=== PATIENT | male | born 1935 | race Caucasian/White ===

== ENCOUNTER 2017-01-25 11:53 | Inpatient (IN) ==
--- OUTSIDE RECORDS SUMMARY | 2017-01-25 12:09 | External Medical Summary | Referral Summary ---
:1935 Author Organization [facility] Address [address] [place] [address] Care Team Providers Name Role Phone Jorge Bowser Primary Care Physician Encounter [facility] [phone] Date(s): 08/31/16 - 09/03/16 [facility] [address] [place] [address] [phone] Discharge Disposition: 03-Shelter Facility Attending Physician: Sonali Foss DO Admitting Physician: Piotr Celeste MD Vital Signs Most recent to oldest [Reference Range]: 1 Temperature Oral [35.8-37.3 degC] 36.8 degC (09/03/16 12:00 PM) Apical Heart Rate [60-100 bpm] 93 bpm (08/31/16 10:42 PM) Peripheral Pulse Rate [60-100 bpm] 63 bpm (09/03/16 12:00 PM) Heart Rate Monitored [60-100 bpm] 97 bpm (08/31/16 9:15 PM) Respiratory Rate [14-20 br/min] 18 br/min (09/03/16 12:00 PM) Blood Pressure [90-140/60-90 mmHg] 110/64mmHg (09/03/16 12:00 PM) Mean Arterial Pressure, Cuff 89 mmHg (08/31/16 9:15 PM) SpO2 94 % (09/03/16 12:00 PM) Remote Telemetry Ongoing (09/02/16 8:00 PM) Problem List Condition Effective Dates Status Health Status Informant Acute pain(Confirmed) Active At risk for infection(Confirmed)1 Active At risk of pressure sore(Confirmed) Active Obesity(Confirmed) Active patient 1Problem added automatically by system based on initiation of At Risk for Infection in Nutrition Plan of Care Allergies, Adverse Reactions, Alerts No Known Medication Allergies Medications ALPRAZolam 1 mg, Oral, TID, as needed for anxiety Start Date: 09/01/16 Status: Orderedaspirin 81 mg, Oral, Daily Start Date: 09/01/16 Status: Orderedazithromycin 250 mg oral tablet 250 mg 1 tabs, Oral, Daily, X 3 days, # 3 tabs, 0 Refill(s) Start Date: 09/03/16 Stop Date: 09/06/16 Status: Orderedcefdinir 300 mg oral capsule 300 mg 1 caps, Oral, q12hr, X 5 days, # 10 caps, 0 Refill(s) Start Date: 09/03/16 Stop Date: 09/08/16 Status: OrderedCeleXA 40 mg, Oral, Daily Start Date: 09/01/16 Status: OrderedDULoxetine 30 mg, Oral, Daily Start Date: 09/01/16 Status: Orderedeszopiclone 3 mg, Oral, Bedtime (once a day), as needed for insomnia Start Date: 09/01/16 Status: Orderedhydrochlorothiazide 12.5 mg, Oral, Daily Start Date: 09/01/16 Status: Orderedlisinopril 20 mg, Oral, Daily Start Date: 09/01/16 Status: Orderedmethylphenidate 10 mg, Oral, BID, 0 Refill(s) Start Date: 09/01/16 Status: OrderedNorco 10 mg-325 mg oral tablet 1 tabs, Oral, TID, as needed for pain, 0 Refill(s) Start Date: 09/01/16 Status: OrderedSynthroid 100 mcg (0.1 mg) oral tablet 100 mcg 1 tabs, Oral, Daily, # 30 tabs, 0 Refill(s) Start Date: 09/03/16 Stop Date: 10/03/16 Status: Ordered Results Hematology Most recent to oldest [Reference Range]: 1 WBC [4.8-10.8 10*3/uL] 6.9 10*3/uL (09/03/16 6:50 AM) RBC [4.60-6.20] 3.95 *LOW* (09/03/16 6:50 AM) Hgb [14.0-18.0 gm/dL] 12.6 gm/dL *LOW* (09/03/16 6:50 AM) Hct [42.0-52.0 %] 37.8 % *LOW* (09/03/16 6:50 AM) MCV [82.0-99.0 fL] 95.7 fL (09/03/16 6:50 AM) MCH [27.0-32.0 pg] 31.9 pg (09/03/16 6:50 AM) MCHC [32.0-36.0 gm/dL] 33.3 gm/dL (09/03/16 6:50 AM) RDW [11.5-14.5 %] 12.6 % (09/03/16 6:50 AM) Platelet [150-400 10*3/uL] 115 10*3/uL *LOW* (09/03/16 6:50 AM) MPV [9.4-12.3 fL] 10.6 fL (09/03/16 6:50 AM) Immature Granulocytes [0.0-1.0 %] 0.6 % (09/03/16 6:50 AM) Neutrophils [51-75 %] 64 % (09/03/16 6:50 AM) Lymphocytes [20-46 %] 16 % *LOW* (09/03/16 6:50 AM) Monocytes [4-11 %] 12 % *HI* (09/03/16 6:50 AM) Eosinophils [0-4 %] 8 % *HI* (09/03/16 6:50 AM) Basophils [0-2 %] 0 % (09/03/16 6:50 AM) Neutro Absolute [1.90-7.00] 4.39 (09/03/16 6:50 AM) Lymph Absolute [0.80-3.30] 1.12 (09/03/16 6:50 AM) [place] Absolute [0.30-1.00] 0.80 (09/03/16 6:50 AM) Eos Absolute [0.00-0.50] 0.54 *HI* (09/03/16 6:50 AM) Baso Absolute [0.00-0.20] 0.02 (09/03/16 6:50 AM) Nucleated RBC Automated [0 /100 WBC] 0.0 /100 WBC (09/03/16 6:50 AM) Coagulation Most recent to oldest [Reference Range]: 1 INR [0.9-1.2] 1.2 (08/31/16 7:11 PM) PTT [25.0-35.0 seconds] 26.6 seconds (08/31/16 7:11 PM) Chemistry Most recent to oldest [Reference Range]: 1 Sodium Lvl [136-144 mEq/L] 138 mEq/L (09/03/16 6:50 AM) Potassium Lvl [3.6-5.1 mEq/L] 4.2 mEq/L (09/03/16 6:50 AM) Chloride [99-109 mEq/L] 107 mEq/L (09/03/16 6:50 AM) CO2 [22-32 mEq/L] 24 mEq/L (09/03/16 6:50 AM) AGAP [3-20] 7 (09/03/16 6:50 AM) BUN [4-20 mg/dL] 11 mg/dL (09/03/16 6:50 AM) Glucose Lvl [70-100 mg/dL] 90 mg/dL (09/03/16 6:50 AM) Creatinine Lvl [0.64-1.27 mg/dL] 0.88 mg/dL (09/03/16 6:50 AM) eGFR [>60] >601 (09/03/16 6:50 AM) Calcium Lvl [8.6-10.0 mg/dL] 7.3 mg/dL *LOW* (09/03/16 6:50 AM) Albumin Lvl [3.5-4.8 gm/dL] 2.7 gm/dL *LOW* (09/03/16 6:50 AM) Total Protein [6.1-7.9 gm/dL] 6.0 gm/dL *LOW* (08/31/16 7:11 PM) Globulin [1.9-4.3 gm/dL] 2.5 gm/dL (08/31/16 7:11 PM) ALT [17-63 U/L] 25 U/L (08/31/16 7:11 PM) AST [15-41 U/L] 38 U/L (08/31/16 7:11 PM) Alk Phos [26-104 U/L] 53 U/L (08/31/16 7:11 PM) Bili Total [0.2-1.2 mg/dL] 1.6 mg/dL2 *HI* (08/31/16 7:11 PM) Magnesium Lvl [1.8-2.5 mg/dL] 2.0 mg/dL (09/03/16 6:50 AM) Phosphorus [2.4-4.7 mg/dL] 2.8 mg/dL3 (09/03/16 6:50 AM) Total CK [49-397 U/L] 704 U/L *HI* (09/03/16 6:50 AM) Troponin [<0.06 ng/mL] 0.05 ng/mL (09/01/16 5:58 AM) Ammonia [9-35 mcmol/L] 35 mcmol/L (08/31/16 10:01 PM) Chol [0-200 mg/dL] 108 mg/dL (09/01/16 5:58 AM) Trig [0-150 mg/dL] 44 mg/dL (09/01/16 5:58 AM) HDL [>40 mg/dL] 41 mg/dL (09/01/16 5:58 AM) LDL [0-100 mg/dL] 58 mg/dL (09/01/16 5:58 AM) VLDL Cholesterol [0-30 mg/dL] 9 mg/dL (09/01/16 5:58 AM) Cardiac Risk [0.0-5.7] 2.6 (09/01/16 5:58 AM) T4 Free [0.6-1.1 ng/dL] 1.1 ng/dL (09/01/16 5:58 AM) TSH with Reflex Free T4 [0.35-5.50] 0.21 *LOW* (09/01/16 5:58 AM) Procalcitonin [0.00-0.09 ng/mL] 0.27 ng/mL4 *HI* (09/03/16 6:50 AM) 1Result Comment: Multiply eGFR results by 1.21 for race.2Result Comment: Naproxen, specifically the metabolite O-desmethylnaproxen, may cause spurious elevation in Total Bilirubin levels.3Result Comment: High dosages of liposomal Amphotericin B (AmBisome) therapy or other drug preparations that use a liposomal envelope to facilitate drug delivery may cause falsely elevated results for phosphorus.4Result Comment: Normal:<0.1 ng/ mL (infants>72 hrs - adults) Suspected Lower Respiratory Tract Infection 0.10-0.25 ng/mL=Low likelihood for bacterial infection; Antibiotics discouraged. >0.25 ng/mL=Increased likelihood for bacterial infection; Antibiotics encouraged. Suspected Sepsis: Strongly consider initiating antibiotics in all unstable patients. 0.10-0.50 ng/mL=Low likelihood for sepsis; Antibiotics discouraged. >0.50 ng/mL=Increased likelihood for sepsis; Antibiotics encouraged. Decisions on antibiotic use should not be based solely on procalcitonin levels. If antibiotics are administered, repeat procalcitonin testing should be obtained every 2-3 days to consider early antibiotic cessation. PCT is a dynamic biomarker and most useful when trends are analyzed over time in accompaniment with other clinical data. Interpretation should be based upon clinical context and algorithms.Toxicology Most recent to oldest [Reference Range]: 1 Ethanol Lvl Not Detected (08/31/16 7:11 PM) Urinalysis Most recent to oldest [Reference Range]: 1 UA Color Yellow (08/31/16 8:45 PM) UA Appear Clear (08/31/16 8:45 PM) UA pH [5.0-8.0] 7.0 (08/31/16 8:45 PM) UA Leuk Est [Negative] Negative (08/31/16 8:45 PM) UA Nitrite [Negative] Negative (08/31/16 8:45 PM) UA Protein [Negative] Negative (08/31/16 8:45 PM) UA Glucose [Negative] Negative (08/31/16 8:45 PM) UA Ketones [Negative] Negative (08/31/16 8:45 PM) UA Urobilinogen [<1.0] Negative (08/31/16 8:45 PM) UA Bili [Negative] Negative (08/31/16 8:45 PM) UA Blood [Negative] Pos 1+ *ABN* (08/31/16 8:45 PM) UA Spec Grav [1.003-1.030] 1.010 (08/31/16 8:45 PM) Type Clean Catch (08/31/16 8:45 PM) UA WBC [0-4] 0-2 (08/31/16 8:45 PM) UA RBC [0-2] 0-2 (08/31/16 8:45 PM) Epithelial Cells None Seen (08/31/16 8:45 PM) UA Bacteria None Seen (08/31/16 8:45 PM) Microbiology Reports TEST:Respiratory Virus Panel - PCR STATUS:Auth (Verified) BODY SITE: SOURCE:Nasopharyngeal Swab COLLECTED DATE/TIME:09/01/16 1:30 AMRespiratory Virus Panel - PCRNegative for all strains tested. . Specimen tested for the following FDA approved viral targets: Influenza A, Influenza A subtype H1, Influenza A subtype H3, Influenza A 2009 H1N1, Influenza B, Respiratory Syncytial Virus subtype A, Respiratory Syncytial Virus subtype B, Adenovirus B/E, Adenovirus C, Rhinovirus, Parainfluenza virus 1, Parainfluenza virus 2, Parainfluenza virus 3, and Human Metapneumovirus. . The following viral targets were also tested. Although not FDA approved, these targets have been validated by our laboratory for clinical diagnosis: Parainfluenza virus 4, Coronavirus 229E, Coronavirus NL63, Coronavirus HKU1, and Coronavirus OC43. Immunizations No data available for this section Procedures No data available for this section Social History Social History Type Response Smoking Status Former smoker Assessment and Plan No data available for this section
--- OUTSIDE RECORDS SUMMARY | 2017-01-25 12:10 | External Medical Summary | Continuity of Care Document ---
:1935 Author Organization Via [facility] in [place] Allergies Active Description Code Type Severity Reaction Onset Reported/ Identified Relationship Clinical to Patient Status Yes No Known No Drug Unknown N/A 06/20/2010 Drug Known Aller Allergies Drug gy Aller gies Yes No Known No Drug Unknown N/A 06/20/2010 Intolerances Known Aller Intol gy eranc es Yes No Known Drug 08/07/2012 Drug Aller Allergies gy Yes No Known Food 08/07/2012 Food Aller Allergies gy Yes No Known Drug N/A N/A 07/26/2013 Drug Aller Allergies gy Yes No Known Food N/A N/A 07/26/2013 Food Aller Allergies gy Yes No Known No Drug Unknown N/A 10/29/2016 Allergies Known Aller Aller gy gies Medications Problems Date Dx Coded Attending Type Code Diagnosis Diagnosed By 05/19/2012 Zurdo Stovall MD, D Final 287.5 THROMBOCYTOPENIA NOS 05/19/2012 Zurdo Stovall MD, D Final 593.2 ACQUIRED KIDNEY CYST 05/19/2012 Zurdo Stovall MD, D Admitting 287.5 THROMBOCYTOPENIA NOS 08/07/2012 Berta NICHOLS, Final 244.9 HYPOTHYROIDISM NOS Mohamed N 08/07/2012 Berta NICHOLS, Final 293.0 DEL[facility]IUM D/[facility] Berta NICHOLS, Final 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 Mohamed N 08/07/2012 Berta NICHOLS, Final 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 Mohamed N 08/07/2012 Berta NICHOLS, Final 724.2 LUMBAGO Mohamed N 07/26/2013 Nisha NICHOLS, Final 244.9 HYPOTHYROIDISM NOS Radu S 07/26/2013 Nisha NICHOLS, Final 300.00 ANXIETY STATE NOS Radu S 07/26/2013 Nisha NICHOLS, Final 486 PNEUMONIA ORGANISM NOS Radu S 07/26/2013 Nisha NICHOLS, Final 780.50 SLEEP DISTURBANCE NOS Radu S 07/26/2013 Nisha NICHOLS, Admitting 787.01 NAUSEA W VOMITING Radu S 10/30/2016 Baljit NICHOLS, F E03.9 HYPOTHYROIDISM, Juan Jose Rima UNSPECIFIED 10/30/2016 Baljit NICHOLS, F 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, SINGLE EPISODE, UNSPECI 10/30/2016 Baljit NICHOLS, F F41.9 ANXIETY DISORDER, Juan Jose Abarca UNSPECIFIED 10/30/2016 Baljit NICHOLS, F 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, UNSPECIFIED 10/30/2016 Baljit NICHOLS, F G47.00 INSOMNIA, UNSPECIFIED Juan Jose Abarca 10/30/2016 Baljit NICHOLS, F G93.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 10/30/2016 Baljit NICHOLS, F I10 ESSENTIAL (PRIMARY) Juan Jose Abarca HYPERTENSION 10/30/2016 Baljit NICHOLS, F M54.9 DORSALGIA, UNSPECIFIED Juan Jose Abarca 10/30/2016 Baljit NICHOLS, Jodee R20.0 ANESTHESIA OF SKIN Juan Jose Abarca 10/30/2016 Baljit NICHOLS, F T42.4X5A ADVERSE EFFECT OF Juan Jose Abarca BENZODIAZEPINES, INITIAL ENCOUNT Procedures Code Description Performed By Performed On 81.54 TOTAL KNEE REPLACEMENT Berta NICHOLS, [facility] N 08/07/2012 Results Test Result Range CBC W/DIFF - 10/29/16 15:35 BASOPHIL # 0.0 k/cumm 0.0-0.2 BASOPHIL % 1 % 0-1 EOSINOPHIL # 0.3 k/cumm 0.1-0.5 EOSINOPHIL % 4 % 2-4 GRANULOCYTE # 5.7 k/cumm 2.0-9.0 GRANULOCYTE % 71 % 50-75 LYMPHOCYTE # 1.1 k/cumm 1.0-4.0 LYMPHOCYTE % 14 % 20-30 MEAN CELL HGB 32.8 pg 27.0-33.0 MEAN CELL HGB CONCENTRATION 34.2 g/dL 32.0-37.0 MEAN CELL VOLUME 95.9 fl 80.0-100.0 MONOCYTE # 0.9 k/cumm 0.1-1.0 MONOCYTE % 11 % 4-6 RED BLOOD CELL 4.42 m/cumm 4.00-6.00 RED CELL DISTRIBUTION WIDTH 13.2 % 11.0-15.6 WHITE BLOOD CELL 8.0 k/cumm 5.0-10.0 HEMOGLOBIN 14.5 gm/dL 14.0-18.0 HEMATOCRIT 42.4 % 40.0-54.0 PLATELET COUNT 132 k/cumm 150-450 METABOLIC PANEL, BASIC - 03/31/17 15:35 POTASSIUM 4.9 mmol/L 3.5-5.3 EST GFR (MDRD) 58 mL/min > 59 ANION GAP 11 mmol/L 5-15 EST CrCl (CG) 51 mL/min > 59 GLUCOSE 137 mg/dL 70-99 CALCIUM 8.5 mg/dL 8.5-10.1 BLOOD UREA NITROGEN 21 mg/dL 7-20 CREATININE 1.2 mg/dL 0.7-1.3 SODIUM 139 mmol/L 135-148 CHLORIDE 103 mmol/L 98-110 CARBON DIOXIDE 25 mmol/L 21-32 TROPONIN I BEDSIDE - 10/29/16 15:44 METHOD Bedside TROPONIN I < 0.04 ng/mL < 0.11 CBC W/DIFF - 10/30/16 04:39 EOSINOPHIL # 0.6 k/cumm 0.1-0.5 EOSINOPHIL % 8 % 2-4 GRANULOCYTE # 4.8 k/cumm 2.0-9.0 GRANULOCYTE % 63 % 50-75 LYMPHOCYTE # 1.5 k/cumm 1.0-4.0 LYMPHOCYTE % 19 % 20-30 MEAN CELL HGB 31.8 pg 27.0-33.0 MEAN CELL HGB CONCENTRATION 33.9 g/dL 32.0-37.0 MEAN CELL VOLUME 93.9 fl 80.0-100.0 MONOCYTE # 0.7 k/cumm 0.1-1.0 MONOCYTE % 10 % 4-6 RED BLOOD CELL 4.56 m/cumm 4.00-6.00 RED CELL DISTRIBUTION WIDTH 13.0 % 11.0-15.6 WHITE BLOOD CELL 7.7 k/cumm 5.0-10.0 HEMOGLOBIN 14.5 gm/dL 14.0-18.0 HEMATOCRIT 42.8 % 40.0-54.0 PLATELET COUNT 125 k/cumm 150-400 METABOLIC PANEL, BASIC - 10/30/16 04:39 POTASSIUM 4.2 mmol/L 3.5-5.3 EST GFR (MDRD) > 60 mL/min > 59 ANION GAP 9 mmol/L 5-15 EST CrCl (CG) 55 mL/min > 59 GLUCOSE 99 mg/dL 70-99 CALCIUM 8.5 mg/dL 8.5-10.1 BLOOD UREA NITROGEN 20 mg/dL 7-20 CREATININE 1.1 mg/dL 0.7-1.3 SODIUM 138 mmol/L 135-148 CHLORIDE 105 mmol/L 98-110 CARBON DIOXIDE 24 mmol/L 21-32 LIPID PANEL - 10/30/16 04:39 CHOLESTEROL/HDL RATIO 3.3 < 5.0 LDL CHOLESTEROL 69 mg/dL < 100 VLDL CHOLESTEROL 28 mg/dL < 30 TRIGLYCERIDES 140 mg/dL < 150 CHOLESTEROL 139 mg/dL < 200 HDL CHOLESTEROL 42 mg/dL > 39 THYROID STIM HORMONE (TSH) - 10/30/16 04:39 THYROID STIM HORMONE (TSH) 1.28 uIU/mL 0.34-4.82 GLUCOSE (POC) - 10/30/16 05:54 GLUCOSE (POC) 112 mg/dL 70-99 GLUCOSE (POC) - 10/30/16 10:58 GLUCOSE (POC) 102 mg/dL 70-99 GLUCOSE (POC) - 10/30/16 14:42 GLUCOSE (POC) 153 mg/dL 70-99 GLUCOSE (POC) - 10/30/16 21:12 GLUCOSE (POC) 111 mg/dL 70-99 GLUCOSE (POC) - 10/31/16 06:13 GLUCOSE (POC) 103 mg/dL 70-99 GLUCOSE (POC) - 10/31/16 10:56 GLUCOSE (POC) 109 mg/dL 70-99 GLUCOSE (POC) - 10/31/16 14:37 GLUCOSE (POC) 151 mg/dL 70-99 GLUCOSE (POC) - 10/31/16 20:36 GLUCOSE (POC) 107 mg/dL 70-99 GLUCOSE (POC) - 11/01/16 05:41 GLUCOSE (POC) 90 mg/dL 70-99 GLUCOSE (POC) - 11/01/16 10:00 GLUCOSE (POC) 119 mg/dL 70-99 GLUCOSE (POC) - 11/01/16 14:10 GLUCOSE (POC) 158 mg/dL 70-99 GLUCOSE (POC) - 11/01/16 20:37 GLUCOSE (POC) 84 mg/dL 70-99 GLUCOSE (POC) - 11/02/16 06:09 GLUCOSE (POC) 105 mg/dL 70-99 GLUCOSE (POC) - 11/02/16 11:18 GLUCOSE (POC) 102 mg/dL 70-99 GLUCOSE (POC) - 11/02/16 14:29 GLUCOSE (POC) 149 mg/dL 70-99 GLUCOSE (POC) - 11/02/16 19:51 GLUCOSE (POC) 153 mg/dL 70-99 GLUCOSE (POC) - 11/03/16 05:28 GLUCOSE (POC) 100 mg/dL 70-99 GLUCOSE (POC) - 11/03/16 11:40 GLUCOSE (POC) 102 mg/dL 70-99 GLUCOSE (POC) - 11/03/16 14:43 GLUCOSE (POC) 161 mg/dL 70-99 CBC W/DIFF - 01/11/17 14:13 BASOPHIL # 0.0 k/cumm 0.0-0.2 BASOPHIL % 1 % 0-1 EOSINOPHIL # 0.3 k/cumm 0.1-0.5 EOSINOPHIL % 6 % 2-4 GRANULOCYTE # 3.9 k/cumm 2.0-9.0 GRANULOCYTE % 66 % 50-75 LYMPHOCYTE # 0.9 k/cumm 1.0-4.0 LYMPHOCYTE % 15 % 20-30 MEAN CELL HGB 32.5 pg 27.0-33.0 MEAN CELL HGB CONCENTRATION 33.5 g/dL 32.0-37.0 MEAN CELL VOLUME 96.9 fl 80.0-100.0 MONOCYTE # 0.7 k/cumm 0.1-1.0 MONOCYTE % 12 % 4-6 RED BLOOD CELL 4.25 m/cumm 4.00-6.00 RED CELL DISTRIBUTION WIDTH 12.5 % 11.0-15.6 WHITE BLOOD CELL 5.9 k/cumm 5.0-10.0 HEMOGLOBIN 13.8 gm/dL 14.0-18.0 HEMATOCRIT 41.2 % 40.0-54.0 PLATELET COUNT 139 k/cumm 150-400 METABOLIC PANEL, COMPREHN - 01/11/17 14:13 POTASSIUM 4.4 mmol/L 3.5-5.3 EST GFR (MDRD) > 60 mL/min > 59 ANION GAP 6 mmol/L 5-15 EST CrCl (CG) > 60 mL/min > 59 GLUCOSE 92 mg/dL 70-99 CALCIUM 8.1 mg/dL 8.5-10.1 BLOOD UREA NITROGEN 16 mg/dL 7-20 CREATININE 0.9 mg/dL 0.7-1.3 SODIUM 141 mmol/L 135-148 CHLORIDE 108 mmol/L 98-110 AST/SGOT 18 Units/L 10-37 ALT/SGPT 16 Units/L < 66 CARBON DIOXIDE 27 mmol/L 21-32 TOTAL PROTEIN 5.3 gm/dL 6.4-8.2 ALBUMIN 2.8 gm/dL 3.4-5.0 BILI TOTAL 0.5 mg/dL 0.0-1.0 ALKALINE PHOSPHATASE TOTAL 59 IU/L 45-117 D-DIMER QUANT - 01/11/17 14:13 D-DIMER QUANT 306 ng/mL 0-229 ACETAMINOPHEN (TYLENOL) - 01/11/17 14:13 ACETAMINOPHEN (TYLENOL) 5 mcg/mL 10-30 SALICYLATE (ASPIRIN) - 01/11/17 14:13 SALICYLATE < 2.8 mg/dL 2.8-29.0 CHEM/HEM PROFILE-BEDSIDE - 01/11/17 14:15 POTASSIUM 4.2 mmol/L 3.5-5.3 METHOD Bedside ANION GAP 14 mmol/L 10-20 METHOD Bedside GLUCOSE 86 mg/dL 70-99 BLOOD UREA NITROGEN 16 mg/dL 7-20 CREATININE 0.9 mg/dL 0.7-1.3 HEMOGLOBIN 13.9 gm/dL 14.0-18.0 HEMATOCRIT 41.0 % 40.0-54.0 SODIUM 138 mmol/L 135-148 CHLORIDE 103 mmol/L 98-110 CARBON DIOXIDE 27 mmol/L 21-32 CALCIUM IONIZED 4.4 mg/dL 4.5-5.3 TROPONIN I BEDSIDE - 01/11/17 14:16 METHOD Bedside TROPONIN I < 0.04 ng/mL < 0.11 URINALYSIS, ROUTINE - 01/11/17 15:18 UA LEUKOCYTE ESTERASE DIPSTICK NEGATIVE NEGATIVE UA NITRITE DIPSTICK NEGATIVE NEGATIVE UA PROTEIN DIPSTICK NEGATIVE NEGATIVE UA GLUCOSE DIPSTICK NEGATIVE NEGATIVE UA KETONE DIPSTICK NEGATIVE NEGATIVE UA UROBILINOGEN DIPSTICK NORMAL NORMAL UA BILIRUBIN DIPSTICK NEGATIVE NEGATIVE UA BLOOD DIPSTICK 2+ NEGATIVE UA SPECIFIC GRAVITY 1.011 1.015-1.025 UR PH 7.0 5.0-7.0 UA MICROSCOPIC - 01/11/17 15:18 UA EPITHELIAL CELLS 1+ epi/hpf 0 - 1+ UA MUCUS 1+ NEG TO 1+ UA RBC 5-10 rbc/hpf 0 - 3 UA VOLUME FOR EXAM 12.0 mL (12mL STD) UA WBC 0-1 wbc/hpf 0 - 5 UR DRUGS OF ABUSE SCREEN - 01/11/17 15:18 UR AMPHETAMINES SCREEN NEG (<1000 ng/mL) NEGATIVE UR BARBITURATE SCREEN NEG (< 200 ng/mL) NEGATIVE DRUGS OF ABUSE SCREEN COMMENT UR OPIATES SCREEN POS (> 300 ng/mL) NEGATIVE UR PHENCYCLIDINE (PCP) SCREEN NEG (< 25 ng/mL) NEGATIVE UR CANNABINOIDS (THC) SCREEN NEG (< 50 ng/mL) NEGATIVE UR COCAINE METABOLITE SCREEN NEG (< 300 ng/mL) NEGATIVE UR METHADONE SCREEN NEG (< 300 ng/mL) NEGATIVE UR BENZODIAZEPINE SCREEN POS (> 200 ng/mL) NEGATIVE ARTERIAL BLOOD GAS - 01/11/17 18:18 ABG BASE EXCESS -0.5 meq/L -3.0-3.0 ABG FIO2 40 % ABG BICARBONATE 25.0 meq/L 23.0-28.0 ABG PCO2 44 mm Hg 34-45 ABG PEEP 5 CM ABG PH 7.37 7.35-7.45 ABG PO2 118 mm Hg 75-100 ABG VENT RATE 12 ABG O2 SATURATION 98 % 93-100 ABG TIDAL VOLUME 450 CC ARTERIAL BLOOD GAS - 01/12/17 04:38 ABG BASE EXCESS -0.8 meq/L -3.0-3.0 ABG BICARBONATE 23.5 meq/L 23.0-28.0 ABG PCO2 38 mm Hg 34-45 ABG PEEP 5 CM ABG PH 7.41 7.35-7.45 ABG PO2 95 mm Hg 75-100 ABG VENT RATE 12 ABG O2 SATURATION 97 % 93-100 ABG TIDAL VOLUME 450 CC CBC W/DIFF - 01/12/17 04:38 EOSINOPHIL # 0.2 k/cumm 0.1-0.5 EOSINOPHIL % 2 % 2-4 GRANULOCYTE # 5.8 k/cumm 2.0-9.0 GRANULOCYTE % 78 % 50-75 LYMPHOCYTE # 0.5 k/cumm 1.0-4.0 LYMPHOCYTE % 7 % 20-30 MEAN CELL HGB 32.8 pg 27.0-33.0 MEAN CELL HGB CONCENTRATION 33.4 g/dL 32.0-37.0 MEAN CELL VOLUME 98.1 fl 80.0-100.0 MONOCYTE # 0.8 k/cumm 0.1-1.0 MONOCYTE % 11 % 4-6 RED BLOOD CELL 4.12 m/cumm 4.00-6.00 RED CELL DISTRIBUTION WIDTH 12.6 % 11.0-15.6 WHITE BLOOD CELL 7.4 k/cumm 5.0-10.0 HEMOGLOBIN 13.5 gm/dL 14.0-18.0 HEMATOCRIT 40.4 % 40.0-54.0 PLATELET COUNT 119 k/cumm 150-400 METABOLIC PANEL, COMPREHN - 01/12/17 04:38 POTASSIUM 3.9 mmol/L 3.5-5.3 EST GFR (MDRD) > 60 mL/min > 59 ANION GAP 8 mmol/L 5-15 EST CrCl (CG) > 60 mL/min > 59 GLUCOSE 88 mg/dL 70-99 CALCIUM 7.3 mg/dL 8.5-10.1 BLOOD UREA NITROGEN 16 mg/dL 7-20 CREATININE 0.9 mg/dL 0.7-1.3 SODIUM 144 mmol/L 135-148 CHLORIDE 111 mmol/L 98-110 AST/SGOT 20 Units/L 10-37 ALT/SGPT 23 Units/L < 66 CARBON DIOXIDE 25 mmol/L 21-32 TOTAL PROTEIN 5.0 gm/dL 6.4-8.2 ALBUMIN 2.5 gm/dL 3.4-5.0 BILI TOTAL 0.7 mg/dL 0.0-1.0 ALKALINE PHOSPHATASE TOTAL 57 IU/L 45-117 PHOSPHORUS - 01/12/17 04:38 PHOSPHORUS 3.4 mg/dL 2.5-4.9 MAGNESIUM - 01/12/17 04:38 MAGNESIUM 1.8 mg/dL 1.8-2.4 ARTERIAL BLOOD GAS - 01/12/17 16:08 ABG BASE EXCESS -0.5 meq/L -3.0-3.0 ABG BICARBONATE 23.2 meq/L 23.0-28.0 ABG PCO2 35 mm Hg 34-45 ABG PH 7.44 7.35-7.45 ABG PO2 85 mm Hg 75-100 ABG O2 SATURATION 97 % 93-100 CBC W/DIFF - 01/13/17 05:32 EOSINOPHIL # 0.2 k/cumm 0.1-0.5 EOSINOPHIL % 2 % 2-4 GRANULOCYTE # 8.2 k/cumm 2.0-9.0 GRANULOCYTE % 79 % 50-75 LYMPHOCYTE # 0.8 k/cumm 1.0-4.0 LYMPHOCYTE % 7 % 20-30 MEAN CELL HGB 32.6 pg 27.0-33.0 MEAN CELL HGB CONCENTRATION 34.1 g/dL 32.0-37.0 MEAN CELL VOLUME 95.6 fl 80.0-100.0 MONOCYTE # 1.2 k/cumm 0.1-1.0 MONOCYTE % 11 % 4-6 RED BLOOD CELL 4.57 m/cumm 4.00-6.00 RED CELL DISTRIBUTION WIDTH 12.0 % 11.0-15.6 WHITE BLOOD CELL 10.4 k/cumm 5.0-10.0 HEMOGLOBIN 14.9 gm/dL 14.0-18.0 HEMATOCRIT 43.7 % 40.0-54.0 PLATELET COUNT 123 k/cumm 150-400 RENAL FUNCTION PANEL - 01/13/17 05:32 POTASSIUM 3.7 mmol/L 3.5-5.3 EST GFR (MDRD) > 60 mL/min > 59 ANION GAP 9 mmol/L 5-15 EST CrCl (CG) > 60 mL/min > 59 GLUCOSE 82 mg/dL 70-99 CALCIUM 8.2 mg/dL 8.5-10.1 BLOOD UREA NITROGEN 16 mg/dL 7-20 CREATININE 0.9 mg/dL 0.7-1.3 SODIUM 142 mmol/L 135-148 CHLORIDE 107 mmol/L 98-110 CARBON DIOXIDE 26 mmol/L 21-32 ALBUMIN 3.0 gm/dL 3.4-5.0 PHOSPHORUS 2.8 mg/dL 2.5-4.9 MAGNESIUM - 01/13/17 05:32 MAGNESIUM 1.7 mg/dL 1.8-2.4 ARTERIAL BLOOD GAS - 01/13/17 23:57 ABG BASE EXCESS -0.8 meq/L -3.0-3.0 ABG BICARBONATE 20.6 meq/L 23.0-28.0 ABG PCO2 27 mm Hg 34-45 ABG PH 7.51 7.35-7.45 ABG PO2 144 mm Hg 75-100 ABG O2 SATURATION 99 % 93-100 CBC W/DIFF - 01/13/17 23:57 COMMENT REVIEWED GRANULOCYTE # 13.2 k/cumm 2.0-9.0 GRANULOCYTE % 88 % 50-75 LYMPHOCYTE # 0.5 k/cumm 1.0-4.0 LYMPHOCYTE % 3 % 20-30 MEAN CELL HGB 32.8 pg 27.0-33.0 MEAN CELL HGB CONCENTRATION 35.8 g/dL 32.0-37.0 MEAN CELL VOLUME 91.5 fl 80.0-100.0 MONOCYTE # 1.2 k/cumm 0.1-1.0 MONOCYTE % 8 % 4-6 RED BLOOD CELL 4.61 m/cumm 4.00-6.00 RED CELL DISTRIBUTION WIDTH 11.7 % 11.0-15.6 WHITE BLOOD CELL 15.0 k/cumm 5.0-10.0 HEMOGLOBIN 15.1 gm/dL 14.0-18.0 HEMATOCRIT 42.2 % 40.0-54.0 PLATELET COUNT 125 k/cumm 150-400 LACTIC ACID - 01/14/17 00:19 LACTIC ACID 1.6 mmol/L 0.5-2.0 URINALYSIS, ROUTINE - 01/14/17 00:19 UA LEUKOCYTE ESTERASE DIPSTICK NEGATIVE NEGATIVE UA NITRITE DIPSTICK NEGATIVE NEGATIVE UA PROTEIN DIPSTICK NEGATIVE NEGATIVE UA GLUCOSE DIPSTICK NEGATIVE NEGATIVE UA KETONE DIPSTICK 3+ NEGATIVE UA UROBILINOGEN DIPSTICK 2+ NORMAL UA BILIRUBIN DIPSTICK NEGATIVE NEGATIVE UA BLOOD DIPSTICK 3+ NEGATIVE UA SPECIFIC GRAVITY 1.012 1.015-1.025 UR PH 7.0 5.0-7.0 UA MICROSCOPIC - 01/14/17 00:19 UA BACTERIA 3+ NEGATIVE UA EPITHELIAL CELLS 0 epi/hpf 0 - 1+ UA MUCUS 1+ NEG TO 1+ UA RBC 5-10 rbc/hpf 0 - 3 UA VOLUME FOR EXAM 12.0 mL (12mL STD) UA WBC 0-1 wbc/hpf 0 - 5 BLOOD CULTURE - 01/14/17 00:19 Microbiology BLOOD CULTURE - 01/14/17 00:20 Microbiology LACTIC ACID - 01/14/17 03:00 LACTIC ACID 2.0 mmol/L 0.5-2.0 CBC W/DIFF - 01/14/17 03:00 COMMENT REVIEWED GRANULOCYTE # 13.2 k/cumm 2.0-9.0 GRANULOCYTE % 86 % 50-75 LYMPHOCYTE # 0.8 k/cumm 1.0-4.0 LYMPHOCYTE % 5 % 20-30 MEAN CELL HGB 32.3 pg 27.0-33.0 MEAN CELL HGB CONCENTRATION 35.0 g/dL 32.0-37.0 MEAN CELL VOLUME 92.5 fl 80.0-100.0 MONOCYTE # 1.2 k/cumm 0.1-1.0 MONOCYTE % 8 % 4-6 RED BLOOD CELL 4.67 m/cumm 4.00-6.00 RED CELL DISTRIBUTION WIDTH 11.9 % 11.0-15.6 WHITE BLOOD CELL 15.3 k/cumm 5.0-10.0 HEMOGLOBIN 15.1 gm/dL 14.0-18.0 HEMATOCRIT 43.2 % 40.0-54.0 PLATELET COUNT 132 k/cumm 150-400 RENAL FUNCTION PANEL - 01/14/17 03:57 POTASSIUM 3.4 mmol/L 3.5-5.3 EST GFR (MDRD) > 60 mL/min > 59 ANION GAP 8 mmol/L 5-15 EST CrCl (CG) > 60 mL/min > 59 GLUCOSE 110 mg/dL 70-99 CALCIUM 7.9 mg/dL 8.5-10.1 BLOOD UREA NITROGEN 11 mg/dL 7-20 CREATININE 0.9 mg/dL 0.7-1.3 SODIUM 136 mmol/L 135-148 CHLORIDE 105 mmol/L 98-110 CARBON DIOXIDE 23 mmol/L 21-32 ALBUMIN 2.9 gm/dL 3.4-5.0 PHOSPHORUS 2.6 mg/dL 2.5-4.9 MAGNESIUM - 01/14/17 03:57 MAGNESIUM 1.8 mg/dL 1.8-2.4 LACTIC ACID - 01/14/17 04:01 LACTIC ACID 1.7 mmol/L 0.5-2.0 GLUCOSE (POC) - 01/14/17 11:57 GLUCOSE (POC) 109 mg/dL 70-99 GLUCOSE (POC) - 01/14/17 18:10 GLUCOSE (POC) 101 mg/dL 70-99 CBC W/DIFF - 01/15/17 05:28 EOSINOPHIL # 0.2 k/cumm 0.1-0.5 EOSINOPHIL % 1 % 2-4 GRANULOCYTE # 8.2 k/cumm 2.0-9.0 GRANULOCYTE % 79 % 50-75 LYMPHOCYTE # 0.7 k/cumm 1.0-4.0 LYMPHOCYTE % 7 % 20-30 MEAN CELL HGB 32.3 pg 27.0-33.0 MEAN CELL HGB CONCENTRATION 34.5 g/dL 32.0-37.0 MEAN CELL VOLUME 93.5 fl 80.0-100.0 MONOCYTE # 1.2 k/cumm 0.1-1.0 MONOCYTE % 11 % 4-6 RED BLOOD CELL 4.49 m/cumm 4.00-6.00 RED CELL DISTRIBUTION WIDTH 12.1 % 11.0-15.6 WHITE BLOOD CELL 10.4 k/cumm 5.0-10.0 HEMOGLOBIN 14.5 gm/dL 14.0-18.0 HEMATOCRIT 42.0 % 40.0-54.0 PLATELET COUNT 124 k/cumm 150-400 RENAL FUNCTION PANEL - 01/15/17 05:28 POTASSIUM 3.8 mmol/L 3.5-5.3 EST GFR (MDRD) > 60 mL/min > 59 ANION GAP 10 mmol/L 5-15 EST CrCl (CG) > 60 mL/min > 59 GLUCOSE 89 mg/dL 70-99 CALCIUM 8.1 mg/dL 8.5-10.1 BLOOD UREA NITROGEN 13 mg/dL 7-20 CREATININE 0.8 mg/dL 0.7-1.3 SODIUM 141 mmol/L 135-148 CHLORIDE 108 mmol/L 98-110 CARBON DIOXIDE 23 mmol/L 21-32 ALBUMIN 2.6 gm/dL 3.4-5.0 PHOSPHORUS 2.2 mg/dL 2.5-4.9 MAGNESIUM - 01/15/17 05:28 MAGNESIUM 1.9 mg/dL 1.8-2.4 METABOLIC PANEL, BASIC - 01/17/17 06:09 POTASSIUM 3.6 mmol/L 3.5-5.3 EST GFR (MDRD) > 60 mL/min > 59 ANION GAP 9 mmol/L 5-15 EST CrCl (CG) > 60 mL/min > 59 GLUCOSE 104 mg/dL 70-99 CALCIUM 8.3 mg/dL 8.5-10.1 BLOOD UREA NITROGEN 14 mg/dL 7-20 CREATININE 0.8 mg/dL 0.7-1.3 SODIUM 140 mmol/L 135-148 CHLORIDE 106 mmol/L 98-110 CARBON DIOXIDE 25 mmol/L 21-32 CBC - 01/19/17 06:00 MEAN CELL HGB 31.8 pg 27.0-33.0 MEAN CELL HGB CONCENTRATION 33.7 g/dL 32.0-37.0 MEAN CELL VOLUME 94.3 fl 80.0-100.0 RED BLOOD CELL 4.75 m/cumm 4.00-6.00 RED CELL DISTRIBUTION WIDTH 12.7 % 11.0-15.6 WHITE BLOOD CELL 6.1 k/cumm 5.0-10.0 HEMOGLOBIN 15.1 gm/dL 14.0-18.0 HEMATOCRIT 44.8 % 40.0-54.0 PLATELET COUNT 160 k/cumm 150-400 METABOLIC PANEL, [facility] - 01/19/17 06:00 POTASSIUM 4.1 mmol/L 3.5-5.3 EST GFR (MDRD) > 60 mL/min > 59 ANION GAP 8 mmol/L 5-15 GLUCOSE 109 mg/dL 70-99 CALCIUM 8.6 mg/dL 8.5-10.1 BLOOD UREA NITROGEN 17 mg/dL 7-20 CREATININE 0.9 mg/dL 0.7-1.3 SODIUM 140 mmol/L 135-148 CHLORIDE 107 mmol/L 98-110 AST/SGOT 22 Units/L 10-37 ALT/SGPT 32 Units/L < 66 CARBON DIOXIDE 25 mmol/L 21-32 TOTAL PROTEIN 6.2 gm/dL 6.4-8.2 ALBUMIN 2.9 gm/dL 3.4-5.0 BILI TOTAL 0.3 mg/dL 0.0-1.0 ALKALINE PHOSPHATASE TOTAL 63 IU/L 45-117 MAGNESIUM - 01/19/17 06:00 MAGNESIUM 2.3 mg/dL 1.8-2.4 CBC - 01/20/17 06:00 MEAN CELL HGB 31.7 pg 27.0-33.0 MEAN CELL HGB CONCENTRATION 32.6 g/dL 32.0-37.0 MEAN CELL VOLUME 97.2 fl 80.0-100.0 RED BLOOD CELL 4.29 m/cumm 4.00-6.00 RED CELL DISTRIBUTION WIDTH 13.2 % 11.0-15.6 WHITE BLOOD CELL 6.7 k/cumm 5.0-10.0 HEMOGLOBIN 13.6 gm/dL 14.0-18.0 HEMATOCRIT 41.7 % 40.0-54.0 PLATELET COUNT 156 k/cumm 150-400 METABOLIC PANEL, [facility] - 01/20/17 06:00 POTASSIUM 4.4 mmol/L 3.5-5.3 EST GFR (MDRD) 45 mL/min > 59 ANION GAP 7 mmol/L 5-15 GLUCOSE 92 mg/dL 70-99 CALCIUM 8.3 mg/dL 8.5-10.1 BLOOD UREA NITROGEN 33 mg/dL 7-20 CREATININE 1.5 mg/dL 0.7-1.3 SODIUM 139 mmol/L 135-148 CHLORIDE 105 mmol/L 98-110 AST/SGOT 18 Units/L 10-37 ALT/SGPT 29 Units/L < 66 CARBON DIOXIDE 27 mmol/L 21-32 TOTAL PROTEIN 5.4 gm/dL 6.4-8.2 ALBUMIN 2.7 gm/dL 3.4-5.0 BILI TOTAL 0.3 mg/dL 0.0-1.0 ALKALINE PHOSPHATASE TOTAL 53 IU/L 45-117 MAGNESIUM - 01/20/17 06:00 MAGNESIUM 2.4 mg/dL 1.8-2.4 METABOLIC PANEL, [facility] - 01/22/17 06:00 POTASSIUM 4.7 mmol/L 3.5-5.3 EST GFR (MDRD) > 60 mL/min > 59 ANION GAP 7 mmol/L 5-15 GLUCOSE 81 mg/dL 70-99 CALCIUM 8.4 mg/dL 8.5-10.1 BLOOD UREA NITROGEN 29 mg/dL 7-20 CREATININE 1.1 mg/dL 0.7-1.3 SODIUM 138 mmol/L 135-148 CHLORIDE 102 mmol/L 98-110 CARBON DIOXIDE 29 mmol/L 21-32 Encounters ACCT No. Visit Discharge Status Pt. Type Provider Facility Loc./Unit Complaint Date/Time [id number] 07/26/2013 07/26/2013 DIS Emergency [place] [facility] TERM 9 21:40:00 23:32:00 Radha NICHOLS [facility] [id number] 08/07/2012 08/11/2012 DIS Inpatient [place] [facility] T3N 8 05:16:00 16:00:00 Radha NICHOLS [facility] [id number] 05/19/2012 05/19/2012 [facility] Outpatient Zur[facility] [place] Via TOP 2 08:26:00 23:59:59 Rima NICHOSL [facility]
--- NOTE | 2017-01-25 12:18 | Emergency Department Report ---
General Adult HPI - General Chief complaint: Psychiatric Symptoms Stated complaint: generations evaluation Time Seen by Provider: 01/25/17 11:55 Source: patient Mode of arrival: ambulatory Limitations: no limitations - History of Present Illness HPI narrative: 81-year-old male sent to the emergency department from [place] for [facility] clearance. Patient is requesting medical clearance for psychiatric treatment. Patient has a history of depression. Patient does note that he had an overdose of prescription medications one week ago and has since been treated and released from [facility]. The patient states that he "took to much Xanax so that he would not be a burden to his children." Patient denies any further self harm or self injury. Patient has no history of suicidal ideation/ homicidal ideation in the past. Patient denies active suicidal/homicidal ideation or plan. Patient has been at [facility] since the incident. No other complaints or associated symptoms. Patient does not note any exacerbating or remitting factors. Patient denies any ingestion of substances to harm himself since the initial incident. Patient only notes chronic pain which is at baseline for the patient. Pain is mild. Pain is dull. No radiation. He denies current homicidal/suicidal ideation or plan. No self injury or self-harm. Does not note any exacerbating or remitting factors. - Related Data Home Medications Medication Instructions Recorded Confirmed Atorvastatin [Lipitor] 20 mg PO HS 01/25/17 01/25/17 Citalopram [Celexa] 40 mg PO DAILY 01/25/17 01/25/17 Clopidogrel Bisulfate [Clopidogrel] 75 mg PO DAILY 01/25/17 01/25/17 Duloxetine [Cymbalta] 30 mg PO DAILY 01/25/17 01/25/17 Eszopiclone [Lunesta] 3 mg PO HS 01/25/17 01/25/17 Hydrocodone/APAP 10/325 [[place] 1 tab PO TID PRN 01/25/17 01/25/17 10/325] Hydrocodone/APAP 5/325 [[place] 1 tab PO TID PRN 01/25/17 01/25/17 5/325] Levothyroxine Sodium 125 mcg PO DAILY 01/25/17 01/25/17 Lisinopril [Zestril] 20 mg PO DAILY 01/25/17 01/25/17 Methylphenidate HCl [Ritalin] 1 tab PO TID 01/25/17 01/25/17 Pantoprazole Tab [Protonix Tab] 1 tab PO ACB 01/25/17 01/25/17 Trazodone [Desyrel] 75 mg PO HS 01/25/17 01/25/17 Allergies Allergy/AdvReac Type Severity Reaction Status Date / Time No Known Allergies Allergy Verified 01/25/17 11:58 Review of Systems Constitutional: Denies: fever, chills Eyes: Denies: eye pain, vision change ENT: Denies: ear pain, throat pain Cardiovascular: Denies: chest pain, dyspnea on exertion Respiratory: Denies: cough, dyspnea Gastrointestinal: Denies: abdominal pain, nausea, vomiting, diarrhea Genitourinary: Denies: urgency, dysuria Musculoskeletal: Reports: back pain (chronic), arthralgia (chronic) Integumentary: Denies: erythema, rash Neurological: Denies: headache, numbness Psychiatric: Reports: depression. Denies: anxiety, suicidal thoughts, homicidal thoughts Endocrine: Denies: fatigue, heat or cold intolerance Hematological/Lymphatic: Denies: easy bleeding, easy bruising Allergic/Immunologic: Denies: facial swelling, urticaria PFSH Patient Stated Medical History Transient Ischemic Attacks ( Yes TIA) Cataracts Yes Gastroesophageal Reflux Yes Disease Depression Yes Osteoarthritis, chronic back pain, depression Surgical History: Laminectomy 3, bilateral knee replacement Family History: negative - Social History Smoking status: Never smoker Substance use type: does not use Alcohol intake frequency: does not drink Physical Exam - Limitations Limitations: no limitations - General General appearance: alert, in no apparent distress - Normal Exams: Head:: Normocephalic without trauma Eyes:: Pupils are PERRLA w/ EOMI, No scleral icterus, irritation, or foreign bodies noted ENMT:: No facial trauma, nasal exudates, pharyngeal erythema, or exudates are noted Dental: No fractured, loose, or missing teeth noted Neck:: Full range of motion, without adenopathy, JVD, bruits or thyromegaly Chest/Respirations:: Clear all encarnacion, with good airflow, and symmetry bilaterally Cardiovascular:: Regular rate and rhythm, without murmur or gallop, Pulses 2+ all extremities, capillary refill, <2 seconds all extremities Abdomen:: Bowel sounds positive, soft, non-tender, non-distended, no hepatosplenomegaly, masses or bruits noted Lymphatic:: No lymphadenopathy, or lymphedema noted Musculoskeletal:: No tenderness, or deformity noted, good range of motion, all extremities Integumentary:: No rashes, hives, or bruising noted, hair and nails, without abnormality Neurological:: Patient is alert, and oriented, cranial nerves, motor/sensory/ cerebellar, exams w/o gross deficits, to observation Psychiatric:: Patient exhibits, appropriate attention, emotion and affect Course Vital Signs Temperature 98.6 F 01/25/17 11:58 Pulse Rate 84 01/25/17 11:58 Respiratory Rate 16 01/25/17 11:58 Pulse Oximetry 97 01/25/17 11:58 Temperature 98.6 F 01/25/17 11:58 Pulse Rate 84 01/25/17 11:58 Respiratory Rate 16 01/25/17 11:58 Pulse Oximetry 97 01/25/17 11:58 Medical Decision Making - [facility] Narrative Medical decision making narrative: Labs / imaging were discussed in detail with the patient and questions are answered. Patient is given 500 mL normal saline intravenously times one. Patient is given a meal in the emergency Department. Patient is medically clear for transfer to [facility] for further evaluation and treatment from a psychiatric standpoint. Patient is in agreement with the current plan of management. Patient is transferred to [facility] without difficulty. Patient is accepted to [facility] by Dr. Worthington. Accepting physician is in agreement with the current plan of management. No further orders. Patient is stable for transfer at this time. Patient is medically clear for further psychiatric evaluation and treatment. - Differential Diagnosis depression, anxiety, suicidal ideation, overdose - Lab Data Result diagrams: 01/25/17 12:44 01/25/17 12:44 Lab Results 01/25/17 01/25/17 01/25/17 Range/Units 12:44 12:44 12:57 WBC 6.8 (4.5-11.0) T/MM3 RBC 4.92 (4.50-5.90) M/MM3 Hgb 15.8 (13.5-17.5) GM/DL Hct 47.2 (41-53) % MCV 95.9 (80-100) UM3 MCH 32.1 (26-34) UUG MCHC 33.5 (31-37) GM/DL RDW Std Deviation 42.8 (36.9-50.2) FL Plt Count 178 (130-400) T/MM3 MPV 10.2 (9.4-12.4) UM3 Immature Gran % (Auto) 1.3 H (0.0-0.5) % Neut % (Auto) 62.3 (33-66) % Lymph % (Auto) 16.1 L (23-45) % Grainger % (Auto) 15.2 H (0-9.0) % Eos % (Auto) 4.7 H (0-4) % Baso % (Auto) 0.4 (0-2) % Neut # 4.3 (1.8-7.7) T/MM3 Lymph # 1.1 (1-4.8) T/MM3 Grainger # 1.0 H (0-0.8) T/MM3 Eos # 0.3 (0-0.5) T/MM3 Baso # 0.0 (0-0.2) T/MM3 Abs Immat Gran (auto) 0.09 H (0.00-0.03) T/MM3 Turbidity < 20 (0-20) Sodium 139 (134-144) MEQ/L Potassium 4.3 (3.6-5) MEQ/L Chloride 101 (98-107) MEQ/L Carbon Dioxide 25 (22-30) MEQ/L Anion Gap 13 (5-15) MEQ/L BUN 34.0 H (9-20) MG/DL Creatinine 1.1 (0.8-1.5) MG/DL GFR Calculation 64 BUN/Creatinine Ratio 31 H (6-26) RATIO Glucose 74 L (75-110) MG/DL Calculated Osmolality 275 (261-280) MOSM/KG Calcium 9.3 (8.4-10.2) MG/DL Total Bilirubin 0.40 (0.20-1.30) MG/DL Icterus Index < 2 (0-7) AST 25 (17-59) U/L ALT 39 (21-72) U/L Alkaline Phosphatase 60 (38-126) U/L Troponin I < 0.012 (0-0.12) ng/ml Total Protein 6.3 (6.3-8.2) G/DL Albumin 4.0 (3.5-5.0) G/DL Globulin 2.3 L (2.4-3.6) G/DL Albumin/Globulin Ratio 1.7 (1.1-2.2) RATIO Specimen Hemolysis 16 (0-25) Ur Collection Type Urine, clean catch Urine Color Yellow (YELLOW) Urine Clarity Clear Urine pH 5.5 (5.0-8.0) Ur Specific [place] 1.020 (1.015-1.025) Urine Protein Negative (NEGATIVE) Urine Glucose (UA) Negative (NEGATIVE) Urine Ketones Negative (NEGATIVE) Urine Occult Blood Negative (NEGATIVE) Urine Nitrate Negative (NEGATIVE) Urine Bilirubin Negative (NEGATIVE) Urine Urobilinogen 0.2 (NORMAL) EU/DL Ur Leukocyte Esterase Negative (NEGATIVE) Urinalysis Comment Microscopic not ind. - Radiology Data CXR - Negative. CT HEAD - Negative. - EKG Data EKG #1 EKG results narrative: Sinus rhythm with PVC. 73 bpm. Left axis deviation. Left bundle branch block. No STEMI. Patient with history of known left bundle branch block. No prior EKG on file. Disposition Clinical Impression: Depression Qualifiers: Depression Type: major depressive disorder Major depression recurrence: recurrent Active/Remission status: currently active Major depression episode severity: severe Psychotic features: without psychotic features Qualified Code(s ): F33.2 - Major depressive disorder, recurrent severe without psychotic features Disposition: [address] [facility] Condition: Improved Prescriptions: No Action Hydrocodone/APAP 5/325 [[place] 5/325] 1 tab PO TID PRN PRN Reason: Pain Atorvastatin [Lipitor] 20 mg PO HS Levothyroxine Sodium 125 mcg PO DAILY Lisinopril [Zestril] 20 mg PO DAILY Hydrocodone/APAP 10/325 [[place] 10/325] 1 tab PO TID PRN PRN Reason: Pain Citalopram [Celexa] 40 mg PO DAILY Clopidogrel Bisulfate [Clopidogrel] 75 mg PO DAILY Duloxetine [Cymbalta] 30 mg PO DAILY Eszopiclone [Lunesta] 3 mg PO HS Methylphenidate HCl [Ritalin] 1 tab PO TID Pantoprazole Tab [Protonix Tab] 1 tab PO ACB Trazodone [Desyrel] 75 mg PO HS Time of Disposition: 13:10 (Admit. Dr. Worthington. ) - Seen By: physician
--- NOTE | 2017-01-25 12:43 | CT Scan Report ---
Indication: Medical clearance PROCEDURE: CT head/brain wo con: Encounter: Initial Comparison: None Technique: Axial CT images through the head were performed without contrast. Iterative Reconstruction dose reducing technique was utilized. FINDINGS: Mild to moderate generalized atrophy. Chronic appearing calcification in the left cerebellum. The ventricles are of normal size, shape, and contour for the patient's age. There are scattered areas of low attenuation in the white matter which most likely represent changes from chronic microvascular ischemia. The brainstem, cerebellum, and cerebral hemispheres otherwise have a normal morphology and CT attenuation. There is no evidence of midline displacement. No hemorrhage, signs of acute territorial stroke, mass effect, mass lesions, or edema is evident. Probable sebaceous cyst in the right parietal scalp. The visualized portions of the skull base, midface, and calvarium demonstrate no abnormality. The paranasal sinuses are well aerated and free of significant disease. The tympanic and mastoid cavities appear normal. IMPRESSION: No acute intracranial abnormality or hemorrhage. .
--- NOTE | 2017-01-25 12:45 | XRay Report ---
Indication: medical clearance PROCEDURE: XR chest 1V: Encounter: Initial Comparison: None FINDINGS: The lungs are clear. There is no abnormal airspace opacity, pleural effusion or pneumothorax identified. The heart size, pulmonary vasculature and mediastinum are within normal limits. IMPRESSION: No acute cardiopulmonary abnormality. .
[2017-01-25] MEDS ORDERED: NS 1,000 ML IV ONE (13:04)
[2017-01-25] MEDS ORDERED: SALINE FLUSH 10ml SYRINGE IV ONE (13:19)
[2017-01-25] MEDS: HYDROCODONE/APAP 5mg/325mg TABLET PO PRN (16:30)
--- NOTE | 2017-01-25 17:53 | 24 Hour Neuropsychiatic Eval ---
Date of Admission: 01/25/17 14:53 Chief complaint: Post suicide attempt by overdose History of Present Illness: Patient is an 81-year-old, , retired, male who presented through the ER post suicide attempt by overdose on over #60 tabs of about 1mg Xanax about 2 weeks ago. This was a planned suicide attempt and he was said to have been found unresponsive by his house keeper on a routine visit. Patient was medically stabilized in [facility] ([facility] prior to transfer to [facility] [place]. He was seen to be alert and orientated to time, place and person. He reports history of Depression since in his early 70's and has been on medication since then. He endorses depressed mood, anhedonia , insomnia,loss of appetite, low energy, lack of motivation and intermittent thoughts of suicide. Patient continues to endorse suicide ideation but he denies any plan to hurt himself or some other in the hospital. He often feels like he is a burden to his family. He also feels like he is no longer in control of the things he does. Patient states that about 3 weeks ago, his PCP along with his family felt he was taking too many medication and the PCP suggested cutting down on his Xanax, but patient decided to quit "cold turkey" and began having hallucinations. He currently denies any auditory or visual hallucinations and he denies any delusion. He also denies history of manic or hypomanic symptoms. Patient reports history of "nervousness" but he denies any panic attack. 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 Depression: Increased Anxiety, Loss of Interest in Activities, Isolating Oneself From Friends and Family, Increased Fatigue, Loss of Energy, Insomnia, Difficulty Sleeping, Changes in Appetite Anxiety: Sense of Impending Doom PFS Patient Stated Medical History Alzheimer's Disease Yes Dementia Yes Migraine Yes Cataracts Yes Hearing Loss Yes Hypertension Yes Gastroesophageal Reflux Yes Disease Depression Yes Panic Disorder No Surgical History: Laminectomy 3, bilateral knee replacement Family History: Family history of depression in his mother - Social History Smoking status: Former smoker Substance use type: does not use Alcohol intake: current (drinks sparingly) 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 He has 2 children ages 52 and 48. Review of Systems - Constitutional Constitutional: Present: anorexia. Absent: headache(s) - EENMT Eyes: Present: blurry vision Balance: Absent: ataxia - Cardiovascular Cardiovascular: Absent: chest pain, orthopnea, edema Vascular: Absent: pedal edema - Respiratory Respiratory: Absent: cough, dyspnea on exertion - Gastrointestinal Gastrointestinal: Absent: diarrhea, dysphagia - Genitourinary Genitourinary: Absent: hematuria, nocturia - Musculoskeletal Musculoskeletal: Present: back pain - Integumentary/Breasts Integumentary: Absent: erythema, rash - Neurological Neurological: Absent: memory loss - Psychiatric Psychiatric: Present: anhedonia, anxiety, depression, hopelessness, suicidal ideation Mental Status Exam Vitals: Last Vital Signs Temp 98.1 F 01/25/17 15:28 Pulse 71 01/25/17 15:28 Resp 16 01/25/17 15:28 BP 134/69 01/25/17 15:28 Pulse Ox 95 01/25/17 15:28 Height: 1.65 m Weight: 82.7 kg - Mental Status Exam Muscle Strength/Tone: Normal Dressing: Casual Grooming: Good Attitude: Cooperative Motor Activity: Normal Eye Contact: Fair Speech: Slowed, Coherent Volume: Soft Rhythm: Appropriate Rhythm Orientation: Oriented to person, Oriented to place, Oriented to time Mood: Depressed, Irritable Affect: Depressed Rate of Thoughts: Appropriate Rate Thought Organization: Organized Associations: Intact Computation: Intact Thought Content: Hopelessness Perception/Psychotic: Hx psychosis, not current Language: Naming Intact Fund of Knowledge: Appropriate Memory: Grossly Intact Suicidal Ideation: Persistent Homicidal Ideation: None Insight: Poor Judgement: Poor Impulse Control: Poor - Laboratory Result Diagrams: 01/25/17 12:44 01/25/17 12:44 Assessment and Plan (1) Major depressive disorder Qualifiers: Major depression recurrence: recurrent Active/Remission status: currently active Major depression episode severity: severe Psychotic features: without psychotic features Qualified Code(s): F33.2 - Major depressive disorder, recurrent severe without psychotic features Current visit: Yes Status: Acute (2) Hypothyroidism Current visit: Yes Status: Acute (3) Chronic migraine Current visit: Yes Status: Acute (4) Hypertension Current visit: Yes Status: Acute (5) Dyslipidemia Current visit: Yes Status: Acute 1. Admit to [facility] unit 2. Consult medical team. 3. Level III observation. 4. Resume home medications. Hold Ritalin. 5. Obtain EKG
[2017-01-25] MEDS: ATORVASTATIN 20 MG TABLET PO SCH (21:33)
[2017-01-25] MEDS ORDERED: TRAZODONE 50 MG TABLET PO SCH (22:00)
[2017-01-26] MEDS: LISINOPRIL 20 MG TABLET PO SCH (08:34)
[2017-01-26] MEDS: CLOPIDOGREL 75 MG TABLET PO SCH (08:34)
[2017-01-26] MEDS: PANTOPRAZOLE 40 MG TABLET PO SCH (08:34)
[2017-01-26] MEDS: DULOXETINE 30 MG CAPSULE PO SCH (08:34)
[2017-01-26] MEDS: LEVOTHYROXINE 125 MCG TABLET PO SCH (08:34)
[2017-01-26] MEDS: CITALOPRAM 40 MG TABLET PO SCH (08:34)
[2017-01-26] MEDS: HYDROCODONE/APAP 5mg/325mg TABLET PO PRN ×2 (08:35→17:09)
--- NOTE | 2017-01-26 09:17 | History & Physical Report ---
<Isabel Reyna V - Last Filed: 01/26/17 10:22> History of Present Illness Date: 01/26/17 Chief complaint: Depression HPI: Mr Acevedo is an 81-year-old male who recently suffered a plan to suicide attempt. He overdosed on 60 tablets of Xanax 1 milligram each approximately 2 weeks ago. He was found unresponsive by his training officer and then hospitalized at [facility] prior to being accepted to [facility]. Patient reported he has had a long-standing history of depression and has been on medication since the 70s. He reported to other healthcare providers that he feels like a burden to his family. He was screened in the emergency room last evening and medically cleared. He was accepted to the [facility] unit for ongoing psychiatric treatment. He does have a known history of dementia with depression and panic disorder. Booker is seen this morning while resting in bed following breakfast. He is alert and orientated during exam and verbalizes his frustration regarding chronic back pain and inability to sleep overnight. Pain is constant, however, is worse this morning from His affect is somewhat depressed this morning. Besides back pain he denies having shortness of breath, chest pain or GI complaints. Blood pressure this morning was mildly elevated 152/71, although patient does report having significant back pain. Review of Systems All systems: reviewed and no additional remarkable complaints except as stated - Musculoskeletal Musculoskeletal: Present: back pain - Psychiatric Psychiatric: Present: anxiety, depression, suicidal ideation PFSH Patient Stated Medical History Alzheimer's Disease Dementia Migraine Cataracts Hearing Loss Hypertension GERD Chronic back pain Depression Suidide attempt Surgical History: Laminectomy 3. Bilateral knee replacement - Social History Smoking status: Former smoker Substance use type: does not use Alcohol intake frequency: does not drink Housing: house Current residence: Apartment/Private Home Social history: PCP Dr Jorge Bowser Medications Home Medications Medication Instructions Recorded Confirmed Type Atorvastatin [Lipitor] 20 mg PO HS 01/25/17 01/25/17 History Citalopram [Celexa] 40 mg PO DAILY 01/25/17 01/25/17 History Clopidogrel Bisulfate [Clopidogrel] 75 mg PO DAILY 01/25/17 01/25/17 History Duloxetine [Cymbalta] 30 mg PO DAILY 01/25/17 01/25/17 History Eszopiclone [Lunesta] 3 mg PO HS 01/25/17 01/25/17 History Hydrocodone/APAP 10/325 [[place] 1 tab PO TID PRN 01/25/17 01/25/17 History 10/325] Hydrocodone/APAP 5/325 [[place] 1 tab PO TID PRN 01/25/17 01/25/17 History 5/325] Levothyroxine Sodium 125 mcg PO DAILY 01/25/17 01/25/17 History Lisinopril [Zestril] 20 mg PO DAILY 01/25/17 01/25/17 History Methylphenidate HCl [Ritalin] 1 tab PO TID 01/25/17 01/25/17 History Pantoprazole Tab [Protonix Tab] 1 tab PO ACB 01/25/17 01/25/17 History Trazodone [Desyrel] 75 mg PO HS 01/25/17 01/25/17 History Allergies Allergy/AdvReac Type Severity Reaction Status Date / Time No Known Allergies Allergy Verified 01/25/17 11:58 Exam Vital Signs: Temperature 97.0 F 01/26/17 08:00 Pulse Rate 79 01/26/17 08:00 Respiratory Rate 18 01/26/17 08:00 Blood Pressure 152/71 H 01/26/17 08:00 Pulse Oximetry 97 01/26/17 08:00 Oxygen Delivery Method Room Air Height: 1.65 m Weight: 82.7 kg - Constitutional Present: no acute distress, well nourished, well developed - Routine HEENT Exam Head: Present: normocephalic, atraumatic Eye: Present: EOMI, PERRL ENT: Present: mucous membranes moist - Routine Neck Exam Present: supple, full ROM - Routine Respiratory Exam Present: CTA bilaterally - Routine Cardiovascular Exam Present: RRR, S1, S2, no murmur - Routine Abdominal Exam Present: soft, normoactive bowel sounds, non distended, non tender - Routine Extremities Exam Present: no edema, full ROM - Routine Back/Spine/Pelvis Exam Back/Spine: Present: full ROM Back image: 1 - generalized pain Comments: Generalized lumbar pain - Routine Skin Exam Present: intact, dry, warm - Routine Neurological Exam Present: alert, oriented X3, CN II-XII intact, moving all extremities - Routine Psychiatric Exam Present: suicidal ideation, depressed. Absent: auditory hallucinations, visual hallucinations, good insight, good judgment Results - Labs CBC & Chem 7: 01/25/17 12:44 01/25/17 12:44 Assessment and Plan (1) Suicide attempt Current visit: Yes Status: Acute (2) Depression Current visit: Yes Status: Chronic (3) Dyslipidemia Current visit: Yes Status: Chronic (4) Hypertension Current visit: Yes Status: Chronic (5) Hypothyroidism Current visit: Yes Status: Chronic (6) Major depressive disorder Current visit: Yes Status: Chronic (7) Chronic migraine Current visit: Yes Status: Chronic (8) Chronic back pain Current visit: Yes Status: Chronic Assessment and Plan: Agree with admission to [facility] for further psychiatric and treatment. Given patients aggressive suicide attempt with overdose recently. He is a level III under strict supervision. Did evaluate all medical screening performed in the emergency room. Will add a TSH for laboratory completeness, given that patient does have a history of hypothyroidism. Continue to encourage cautious use of [place] for chronic back pain. Will also add heat packs to use as needed. Continue to monitor blood pressures. He was borderline elevated this morning, however, this may be secondary to his pain. Continue on lisinopril All psychiatric care as per Dr. Worthington Appreciate medical consultation. The hospitalist services will continue to follow patient medically manage existing comorbidities during his stay at [facility]. At time of discharge medical care will return to primary care provider Dr Jorge Bowser Sepsis Assessment - Evaluation Sepsis screening result: No Definite Risk Hospital Course Summary Disclaimer: The visit summary below is not to be considered part of the above Progress Note. Hospital Course: 01/26/17- admit Agree with admission to [facility] unit for further psychiatric and treatment. Given patients aggressive suicide attempt with overdose recently. He is a level III under strict supervision. Did evaluate all medical screening performed in the emergency room. Will add a TSH for laboratory completeness, given that patient does have a history of hypothyroidism. Continue to encourage cautious use of [place] for chronic back pain. Will also add heat packs to use as needed. Continue to monitor blood pressures. He was borderline elevated this morning, however, this may be secondary to his pain. Continue on lisinopril All psychiatric care as per Dr. Worthington Appreciate medical consultation. The hospitalist services will continue to follow patient medically manage existing comorbidities during his stay at [facility]. At time of discharge medical care will return to primary care provider Dr Jorge Bowser <SahilLeyla L - Last Filed: 01/26/17 19:51> History of Present Illness Date: 01/26/17 [facility] Patient Stated Medical History Alzheimer's Disease Yes Dementia Yes Migraine Yes Cataracts Yes Hearing Loss Yes Hypertension Yes Gastroesophageal Reflux Yes Disease Depression Yes Panic Disorder No Exam Vital Signs: Temperature 98.2 F 01/26/17 16:00 Pulse Rate 70 01/26/17 16:00 Respiratory Rate 18 01/26/17 16:00 Blood Pressure 150/84 H 01/26/17 16:00 Pulse Oximetry 93 01/26/17 16:00 Oxygen Delivery Method Room Air Height: 1.65 m Weight: 82.7 kg Results - Labs CBC & Chem 7: 01/25/17 12:44 01/25/17 12:44 Assessment and Plan (1) Suicide attempt Problem details: Alprazolam overdose Current visit: Yes Status: Acute (2) Major depressive disorder Current visit: Yes Status: Chronic (3) Hypothyroidism Current visit: Yes Status: Chronic (4) Chronic migraine Current visit: Yes Status: Chronic (5) Hypertension Current visit: Yes Status: Chronic (6) Dyslipidemia Current visit: Yes Status: Chronic (7) Chronic back pain Current visit: Yes Status: Chronic Assessment and Plan: I have independently evaluated and examined this patient. I reviewed the chart, the patient's history, and the MANAGER CUSTOMER's documented findings as above. We discussed and formulated the assessment and plan as above with additions as below: Mr. Acevedo was seen with his daughter at bedside. In addition to history described above she reports that the patient was treated for pneumonia while he was at [place]-suspect aspiration based on presentation. She reports past misuse of medications with patient taking additional doses of multiple medications causing him to be drowsy/loopy. Additionally she asked if he could be restarted on a multivitamin that he standardly takes at home. Patient's only concern this evening was whether I thought it was okay for him to resume driving when he was discharged. He denies chest pain or dyspnea. The patient is cooperative but has flat affect. Respirations nonlabored. Cardiac rhythm regular. Neurological exam demonstrates cranial nerves 3-12 intact although hearing is somewhat impaired and he has a hearing aid in the left ear. Motor tone is normal and there are no tremors; strength is 4+/5 proximally/ distally in the upper and lower extremities symmetrically. Sensation is intact to light touch and cold [address] of the head reviewed by myself demonstrating moderate atrophy and chronic microvascular ischemic changes but no acute pathology. Chest x-ray also reviewed by myself and is unremarkable. EKG with sinus rhythm and PVCs, left bundle branch block with secondary ST changes, poor R-wave progression, and probable old inferior OK and possible lateral OK. Left axis deviation present. Laboratory data reviewed, unremarkable. Multivitamin resumed per family request. Advised patient that I believe it's more appropriate for his primary care physician to comment on his ability to drive but that based on his daughter's comments I have reservations. Supplemental history provided by the patient's daughter, x-rays reviewed by myself, EKG reviewed by myself, laboratory data reviewed. Hospital Course Summary Disclaimer: The visit summary below is not to be considered part of the above Progress Note.
--- NOTE | 2017-01-26 10:53 | Neuropsych Progress Note ---
[facility] Subjective Date: 01/26/17 - Sujective/Severity of Illness Medications: Acetaminophen/Hydrocodone Bitart ([place] 5/325) 1 tab PO TID PRN PRN Reason: Pain Last Admin: 01/26/17 08:35 Dose: 1 tab Atorvastatin Calcium (Lipitor) 20 mg PO HS [facility] Last Admin: 01/25/17 21:33 Dose: 20 mg Citalopram Hydrobromide (Celexa) 40 mg PO DAILY [facility] Last Admin: 01/26/17 08:34 Dose: 40 mg Clopidogrel Bisulfate (Plavix) 75 mg PO DAILY [facility] Last Admin: 01/26/17 08:34 Dose: 75 mg Duloxetine HCl (Cymbalta) 30 mg PO DAILY [facility] Last Admin: 01/26/17 08:34 Dose: 30 mg Levothyroxine Sodium (Synthroid) 125 mcg PO ACB [facility] Last Admin: 01/26/17 08:34 Dose: 125 mcg Lisinopril (Prinivil) 20 mg PO DAILY [facility] Last Admin: 01/26/17 08:34 Dose: 20 mg Pantoprazole Sodium (Protonix Tab) 40 mg PO ACB [facility] Last Admin: 01/26/17 08:34 Dose: 40 mg Quetiapine Fumarate (Seroquel) 50 mg PO [facility] Subjective: Patient is an 81-year-old, CM with history of MDD who was admitted post suicide attempt on 01/11/17. He was in [facility] for sometime and was transferred to [facility] on 01/25/17. He endorses insomnia, fatigue, poor concentration, poor motivation and feels helpless and hopeless. Patient continues to have persistent suicide ideation, but he denies any plan to hurt himself in the hospital because he is unable to identify any means. Patient reports that his grandson took away his only gun, but he denies any plan to hurt himself with firearm. Reviewed patient's labs, CT head and the EKG which shows NSR with Qtc of 439. Patient denies any auditory or visual hallucinations. He agrees to augmentation of anti-depressant with Seroquel 50mg and will titrate to response. SLUMS : Start Time: 09:00 Stop Time: :30 Mental Status Exam Vitals: Last Vital Signs Temp 97.0 F 01/26/17 08:00 Pulse 79 01/26/17 08:00 Resp 18 01/26/17 08:00 BP 152/71 H 01/26/17 08:00 Pulse Ox 97 01/26/17 08:00 Height: 1.65 m Weight: 82.7 kg - Mental Status Exam Muscle Strength/Tone: Normal Dressing: Casual Grooming: Good Attitude: Cooperative Motor Activity: Normal Eye Contact: Fair Speech: Slowed, Coherent Volume: Soft Rhythm: Appropriate Rhythm Orientation: Oriented to person, Oriented to place, Oriented to time Mood: Depressed, Irritable Affect: Sad, Anxious, Depressed Rate of Thoughts: Appropriate Rate Thought Organization: Organized Associations: Intact Computation: Intact Thought Content: Hopelessness Perception/Psychotic: Hx psychosis, not current Language: Naming Intact Fund of Knowledge: Appropriate Memory: Grossly Intact Suicidal Ideation: Persistent Homicidal Ideation: None Insight: Poor Judgement: Poor Impulse Control: Poor - Laboratory Result Diagrams: 01/25/17 12:44 01/25/17 12:44 Assessment and Plan (1) Major depressive disorder Qualifiers: Major depression recurrence: recurrent Active/Remission status: currently active Major depression episode severity: severe Psychotic features: without psychotic features Qualified Code(s): F33.2 - Major depressive disorder, recurrent severe without psychotic features Current visit: Yes Status: Chronic (2) Hypothyroidism Current visit: Yes Status: Chronic (3) Chronic migraine Current visit: Yes Status: Chronic (4) Hypertension Current visit: Yes Status: Chronic (5) Dyslipidemia Current visit: Yes Status: Chronic DC Trazodone and start Serquel 50mg po q hs. Cont Level 3 Observation Hospital Course Summary Disclaimer: The visit summary below is not to be considered part of the above Progress Note. Hospital Course: 01/26/17- admit Agree with admission to [facility] for further psychiatric and treatment. Given patients aggressive suicide attempt with overdose recently. He is a level III under strict supervision. Did evaluate all medical screening performed in the emergency room. Will add a TSH for laboratory completeness, given that patient does have a history of hypothyroidism. Continue to encourage cautious use of [place] for chronic back pain. Will also add heat packs to use as needed. Continue to monitor blood pressures. He was borderline elevated this morning, however, this may be secondary to his pain. Continue on lisinopril All psychiatric care as per Dr. Worthington Appreciate medical consultation. The hospitalist services will continue to follow patient medically manage existing comorbidities during his stay at [facility]. At time of discharge medical care will return to primary care provider Dr Jorge Bowser
[2017-01-26] MEDS ORDERED: HALOPERIDOL 0.5 MG TABLET PO PRN (12:36)
[2017-01-26] MEDS ORDERED: HALOPERIDOL 5 MG/ML INJECTION IM PRN (12:36)
[2017-01-26] MEDS: ATORVASTATIN 20 MG TABLET PO SCH (20:47)
[2017-01-26] MEDS: QUETIAPINE 50 MG TABLET PO SCH (20:47)
[2017-01-26] MEDS: LORazepam 0.5 MG TABLET PO PRN (20:56)
[2017-01-27] MEDS: ATORVASTATIN 20 MG TABLET PO SCH ×2 (00:21→21:59)
[2017-01-27] MEDS: QUETIAPINE 50 MG TABLET PO SCH ×2 (00:22→21:59)
[2017-01-27] MEDS: LEVOTHYROXINE 125 MCG TABLET PO SCH (06:07)
[2017-01-27] MEDS: LISINOPRIL 20 MG TABLET PO SCH (09:44)
[2017-01-27] MEDS: DULOXETINE 30 MG CAPSULE PO SCH (09:44)
[2017-01-27] MEDS: PANTOPRAZOLE 40 MG TABLET PO SCH (09:44)
[2017-01-27] MEDS: CLOPIDOGREL 75 MG TABLET PO SCH (09:44)
[2017-01-27] MEDS: MULTI-VITAMIN PLAIN TABLET PO SCH (09:44)
[2017-01-27] MEDS: CITALOPRAM 40 MG TABLET PO SCH (09:44)
[2017-01-27] MEDS: HYDROCODONE/APAP 5mg/325mg TABLET PO PRN ×2 (10:14→20:58)
[2017-01-27] MEDS: ONDANSETRON ODT 4 MG TABLET PO PRN (13:41)
--- NOTE | 2017-01-27 18:21 | Neuropsych Progress Note ---
[facility] Subjective Date: 01/27/17 - Sujective/Severity of Illness Medications: Acetaminophen/Hydrocodone Bitart ([place] 5/325) 1 tab PO TID PRN PRN Reason: Pain Last Admin: 01/27/17 10:14 Dose: 1 tab Atorvastatin Calcium (Lipitor) 20 mg PO HS [facility] Last Admin: 01/27/17 00:21 Dose: Not Given Citalopram Hydrobromide (Celexa) 40 mg PO DAILY [facility] Last Admin: 01/27/17 09:44 Dose: 40 mg Clopidogrel Bisulfate (Plavix) 75 mg PO DAILY [facility] Last Admin: 01/27/17 09:44 Dose: 75 mg Duloxetine HCl (Cymbalta) 30 mg PO DAILY [facility] Last Admin: 01/27/17 09:44 Dose: 30 mg Haloperidol (Haldol) 0.5 mg PO Q6H PRN PRN Reason: Extreme agitation Haloperidol Lactate (Haldol) 0.5 mg IM Q6H PRN PRN Reason: Extreme agitation Levothyroxine Sodium (Synthroid) 125 mcg PO ACB [facility] Last Admin: 01/27/17 06:07 Dose: 125 mcg Lisinopril (Prinivil) 20 mg PO DAILY [facility] Last Admin: 01/27/17 09:44 Dose: 20 mg Lorazepam (Ativan) 0.5 mg PO Q6H PRN PRN Reason: Extreme agitation Last Admin: 01/26/17 20:56 Dose: 0.5 mg Lorazepam (Ativan Inj) 0.5 mg IM Q6H PRN PRN Reason: Extreme agitation Multivitamins (Theragran) 1 tab PO DAILY [facility] Last Admin: 01/27/17 09:44 Dose: 1 tab Ondansetron HCl (Zofran Po) 4 mg PO Q6H PRN PRN Reason: Nausea &/or vomiting Last Admin: 01/27/17 13:41 Dose: 4 mg Pantoprazole Sodium (Protonix Tab) 40 mg PO ACB [facility] Last Admin: 01/27/17 09:44 Dose: 40 mg Quetiapine Fumarate (Seroquel) 50 mg PO HS [facility] Last Admin: 01/27/17 00:22 Dose: Not Given Subjective: Pt seen and chart examined. Pt states he remains depressed and struggles with energy and motivation. He denies anyreal anxiety. He states he slept better with the Seroquel. He reports some morbid thoughts but denies any S/I. Tolerating medications well. Start Time: 17:00 Stop Time: 17:15 Mental Status Exam Vitals: Last Vital Signs Temp 97.8 F 01/27/17 16:38 Pulse 80 01/27/17 16:38 Resp 18 01/27/17 16:38 BP 163/82 H 01/27/17 16:38 Pulse Ox 94 01/27/17 16:38 Height: 1.65 m Weight: 82.7 kg - Mental Status Exam Muscle Strength/Tone: Normal Dressing: Casual Grooming: Good Attitude: Cooperative Motor Activity: Normal Eye Contact: Fair Speech: Slowed, Coherent Volume: Soft Rhythm: Appropriate Rhythm Orientation: Oriented to person, Oriented to place, Oriented to time Mood: Depressed, Irritable Affect: Sad Rate of Thoughts: Appropriate Rate Thought Organization: Organized Associations: Intact Computation: Intact Thought Content: Hopelessness Perception/Psychotic: Hx psychosis, not current Language: Naming Intact Fund of Knowledge: Appropriate Memory: Grossly Intact Suicidal Ideation: Other (Morbid thoughts) Homicidal Ideation: None Insight: Poor Judgement: Poor Impulse Control: Fair - Laboratory Result Diagrams: 01/25/17 12:44 01/25/17 12:44 Assessment and Plan (1) Major depressive disorder Qualifiers: Major depression recurrence: recurrent Active/Remission status: currently active Major depression episode severity: severe Psychotic features: without psychotic features Qualified Code(s): F33.2 - Major depressive disorder, recurrent severe without psychotic features Current visit: Yes Status: Chronic (2) Hypothyroidism Current visit: Yes Status: Chronic (3) Chronic migraine Current visit: Yes Status: Chronic (4) Hypertension Current visit: Yes Status: Chronic (5) Dyslipidemia Current visit: Yes Status: Chronic Hospital Course Summary Disclaimer: The visit summary below is not to be considered part of the above Progress Note. Hospital Course: 01/26/17- admit Agree with admission to [facility] for further psychiatric and treatment. Given patients aggressive suicide attempt with overdose recently. He is a level III under strict supervision. Did evaluate all medical screening performed in the emergency room. Will add a TSH for laboratory completeness, given that patient does have a history of hypothyroidism. Continue to encourage cautious use of [place] for chronic back pain. Will also add heat packs to use as needed. Continue to monitor blood pressures. He was borderline elevated this morning, however, this may be secondary to his pain. Continue on lisinopril All psychiatric care as per Dr. Worthington Appreciate medical consultation. The hospitalist services will continue to follow patient medically manage existing comorbidities during his stay at [facility]. At time of discharge medical care will return to primary care provider Dr Jorge Bowser 01/27/17 18:21 Continue current care
[2017-01-28] MEDS: LEVOTHYROXINE 125 MCG TABLET PO SCH (06:27)
[2017-01-28] MEDS: PANTOPRAZOLE 40 MG TABLET PO SCH (06:27)
[2017-01-28] MEDS: DULOXETINE 30 MG CAPSULE PO SCH (08:22)
[2017-01-28] MEDS: HYDROCODONE/APAP 5mg/325mg TABLET PO PRN ×3 (08:23→20:47)
[2017-01-28] MEDS: CLOPIDOGREL 75 MG TABLET PO SCH (08:23)
[2017-01-28] MEDS: CITALOPRAM 40 MG TABLET PO SCH (08:23)
[2017-01-28] MEDS: MULTI-VITAMIN PLAIN TABLET PO SCH (08:23)
[2017-01-28] MEDS: LISINOPRIL 20 MG TABLET PO SCH (08:23)
[2017-01-28] MEDS ORDERED: CITALOPRAM 40 MG TABLET PO SCH (18:22)
[2017-01-28] MEDS ORDERED: DULOXETINE 30 MG CAPSULE PO SCH (18:23)
--- NOTE | 2017-01-28 18:25 | Neuropsych Progress Note ---
[facility] Subjective Date: 01/28/17 - Sujective/Severity of Illness Medications: Acetaminophen/Hydrocodone Bitart ([place] 5/325) 1 tab PO TID PRN PRN Reason: Pain Last Admin: 01/28/17 14:35 Dose: 1 tab Atorvastatin Calcium (Lipitor) 20 mg PO HS [facility] Last Admin: 01/27/17 21:59 Dose: 20 mg Citalopram Hydrobromide (Celexa) 20 mg PO DAILY [facility] Clopidogrel Bisulfate (Plavix) 75 mg PO DAILY [facility] Last Admin: 01/28/17 08:23 Dose: 75 mg Duloxetine HCl (Cymbalta) 60 mg PO DAILY [facility] Haloperidol (Haldol) 0.5 mg PO Q6H PRN PRN Reason: Extreme agitation Haloperidol Lactate (Haldol) 0.5 mg IM Q6H PRN PRN Reason: Extreme agitation Levothyroxine Sodium (Synthroid) 125 mcg PO ACB [facility] Last Admin: 01/28/17 06:27 Dose: 125 mcg Lisinopril (Prinivil) 20 mg PO DAILY [facility] Last Admin: 01/28/17 08:23 Dose: 20 mg Lorazepam (Ativan) 0.5 mg PO Q6H PRN PRN Reason: Extreme agitation Last Admin: 01/26/17 20:56 Dose: 0.5 mg Lorazepam (Ativan Inj) 0.5 mg IM Q6H PRN PRN Reason: Extreme agitation Multivitamins (Theragran) 1 tab PO DAILY [facility] Last Admin: 01/28/17 08:23 Dose: 1 tab Ondansetron HCl (Zofran Po) 4 mg PO Q6H PRN PRN Reason: Nausea &/or vomiting Last Admin: 01/27/17 13:41 Dose: 4 mg Pantoprazole Sodium (Protonix Tab) 40 mg PO ACB [facility] Last Admin: 01/28/17 06:27 Dose: 40 mg Quetiapine Fumarate (Seroquel) 50 mg PO [facility] Last Admin: 01/27/17 21:59 Dose: 50 mg Subjective: Pt seen and chart examined. Nursing reports pt remains depressed. Sleeping well and has a good appetite. On face to face the pt states he does feel depressed. He feels hopeless. He denies S/I but continues to report thoughts that life is not worth living. Tolerating meds. Start Time: 17:15 Stop Time: 17:30 Mental Status Exam Vitals: Last Vital Signs Temp 98.0 F 01/28/17 16:00 Pulse 79 01/28/17 16:00 Resp 16 01/28/17 16:00 BP 145/67 H 01/28/17 16:00 Pulse Ox 92 01/28/17 16:00 Height: 1.65 m Weight: 82.7 kg - Mental Status Exam Muscle Strength/Tone: Normal Dressing: Casual Grooming: Good Attitude: Cooperative Motor Activity: Normal Eye Contact: Fair Speech: Slowed, Coherent Volume: Soft Rhythm: Appropriate Rhythm Orientation: Oriented to person, Oriented to place, Oriented to time Mood: Depressed, Irritable Rate of Thoughts: Appropriate Rate Thought Organization: Organized Associations: Intact Computation: Intact Thought Content: Hopelessness Perception/Psychotic: Hx psychosis, not current Language: Naming Intact Fund of Knowledge: Appropriate Memory: Grossly Intact Suicidal Ideation: Other (Morbid thoughts) Homicidal Ideation: None Insight: Poor Judgement: Poor Impulse Control: Fair - Laboratory Result Diagrams: 01/25/17 12:44 01/25/17 12:44 Assessment and Plan (1) Major depressive disorder Qualifiers: Major depression recurrence: recurrent Active/Remission status: currently active Major depression episode severity: severe Psychotic features: without psychotic features Qualified Code(s): F33.2 - Major depressive disorder, recurrent severe without psychotic features Current visit: Yes Status: Chronic (2) Hypothyroidism Current visit: Yes Status: Chronic (3) Chronic migraine Current visit: Yes Status: Chronic (4) Hypertension Current visit: Yes Status: Chronic (5) Dyslipidemia Current visit: Yes Status: Chronic Hospital Course Summary Disclaimer: The visit summary below is not to be considered part of the above Progress Note. Hospital Course: 01/26/17- admit Agree with admission to [facility] unit for further psychiatric and treatment. Given patients aggressive suicide attempt with overdose recently. He is a level III under strict supervision. Did evaluate all medical screening performed in the emergency room. Will add a TSH for laboratory completeness, given that patient does have a history of hypothyroidism. Continue to encourage cautious use of [place] for chronic back pain. Will also add heat packs to use as needed. Continue to monitor blood pressures. He was borderline elevated this morning, however, this may be secondary to his pain. Continue on lisinopril All psychiatric care as per Dr. Worthington Appreciate medical consultation. The hospitalist services will continue to follow patient medically manage existing comorbidities during his stay at [facility]. At time of discharge medical care will return to primary care provider Dr Jorge Bowser 01/27/17 18:21 Continue current care 01/28/17 18:25 Decrease Celexa to 20mg PO daily Increase Cymbalta to 60mg PO daily
[2017-01-28] MEDS: QUETIAPINE 50 MG TABLET PO SCH (20:47)
[2017-01-28] MEDS: ATORVASTATIN 20 MG TABLET PO SCH (20:47)
[2017-01-29] MEDS: ATORVASTATIN 20 MG TABLET PO SCH ×2 (01:29→20:51)
[2017-01-29] MEDS: QUETIAPINE 50 MG TABLET PO SCH ×2 (01:30→20:51)
[2017-01-29] MEDS: PANTOPRAZOLE 40 MG TABLET PO SCH (05:34)
[2017-01-29] MEDS: LEVOTHYROXINE 125 MCG TABLET PO SCH (05:34)
[2017-01-29] MEDS: LISINOPRIL 20 MG TABLET PO SCH (08:28)
[2017-01-29] MEDS: MULTI-VITAMIN PLAIN TABLET PO SCH (08:29)
[2017-01-29] MEDS: DULOXETINE 60 MG CAPSULE PO SCH (08:30)
[2017-01-29] MEDS: LORazepam 0.5 MG TABLET PO PRN ×2 (08:30→20:51)
[2017-01-29] MEDS: CLOPIDOGREL 75 MG TABLET PO SCH (08:30)
[2017-01-29] MEDS ORDERED: CITALOPRAM 20 MG TABLET PO SCH (09:00)
[2017-01-29] MEDS: HYDROCODONE/APAP 5mg/325mg TABLET PO PRN ×2 (09:03→16:21)
--- NOTE | 2017-01-29 10:19 | Progress Note ---
Subjective: Booekr is seen today in the day room. He is sitting by himself by a window stating that he is not doing well today. When inquired further about this. Patient says states it is only 9 o'clock need to pass a lot of time. His overall affect appears to be somewhat flat. He denies having any pain or feeling short of breath. Staff report he is off suicide watch. BP stable at 125/67 Objective Vital signs: Temperature 98.5 F 01/29/17 08:00 Pulse Rate 81 01/29/17 08:00 Respiratory Rate 16 01/29/17 08:00 Blood Pressure 125/67 01/29/17 08:00 Pulse Oximetry 94 01/29/17 08:00 Oxygen Delivery Method Room Air Weight: 82.7 kg - Constitutional Present: no acute distress - Routine HEENT Exam Head: Present: normocephalic Eye: Present: EOMI, PERRL ENT: Present: mucous membranes moist - Routine Respiratory Exam Present: CTA bilaterally - Routine Cardiovascular Exam Present: RRR, S1, S2 - Routine Abdominal Exam Present: soft, normoactive bowel sounds - Routine Extremities Exam Present: full ROM - Routine Back/Spine/Pelvis Exam Back/Spine: Present: full ROM - Routine Skin Exam Present: intact, dry, warm - Routine Neurological Exam Present: alert, CN II-XII intact, moving all extremities - Routine Psychiatric Exam Comments: Flat affact Results - Labs CBC & Chem 7: 01/25/17 12:44 01/25/17 12:44 Assessment and Plan (1) Major depressive disorder Current visit: Yes Status: Chronic (2) Hypothyroidism Current visit: Yes Status: Chronic (3) Chronic migraine Current visit: Yes Status: Chronic (4) Hypertension Current visit: Yes Status: Chronic (5) Dyslipidemia Current visit: Yes Status: Chronic (6) Suicide attempt Problem details: Alprazolam overdose Current visit: Yes Status: Acute (7) Chronic back pain Current visit: Yes Status: Chronic Assessment and Plan: 01/29/17 Affact appears flat/depressed. He is off suicide watch Blood pressure is well controlled on Lisinopril continues on usual home medications including lipitor, plavix and levothyroxine Overall appears medically stable Psychiatric care as per Dr. Grullon Sepsis Assessment - Evaluation Sepsis screening result: No Definite Risk Hospital Course Summary Disclaimer: The visit summary below is not to be considered part of the above Progress Note. Hospital Course: 01/26/17- admit Agree with admission to [facility] for further psychiatric and treatment. Given patients aggressive suicide attempt with overdose recently. He is a level III under strict supervision. Did evaluate all medical screening performed in the emergency room. Will add a TSH for laboratory completeness, given that patient does have a history of hypothyroidism. Continue to encourage cautious use of [place] for chronic back pain. Will also add heat packs to use as needed. Continue to monitor blood pressures. He was borderline elevated this morning, however, this may be secondary to his pain. Continue on lisinopril All psychiatric care as per Dr. Worthington Appreciate medical consultation. The hospitalist services will continue to follow patient medically manage existing comorbidities during his stay at [facility]. At time of discharge medical care will return to primary care provider Dr Jorge Bowser 01/27/17 18:21 Continue current care 01/28/17 18:25 Decrease Celexa to 20mg PO daily Increase Cymbalta to 60mg PO daily 01/29/17 Affact appears flat/depressed. He is off suicide watch Blood pressure is well controlled on Lisinopril continues on usual home medications including lipitor, plavix and levothyroxine Overall appears medically stable Psychiatric care as per Dr. Grullon
--- NOTE | 2017-01-29 11:09 | Neuropsych Progress Note ---
[facility] Subjective Date: 01/29/17 - Sujective/Severity of Illness Medications: Acetaminophen/Hydrocodone Bitart ([place] 5/325) 1 tab PO TID PRN PRN Reason: Pain Last Admin: 01/29/17 09:03 Dose: 1 tab Atorvastatin Calcium (Lipitor) 20 mg PO HS [facility] Last Admin: 01/29/17 01:29 Dose: Not Given Citalopram Hydrobromide (Celexa) 20 mg PO DAILY [facility] Last Admin: 01/29/17 08:29 Dose: 20 mg Clopidogrel Bisulfate (Plavix) 75 mg PO DAILY [facility] Last Admin: 01/29/17 08:30 Dose: 75 mg Duloxetine HCl (Cymbalta) 60 mg PO DAILY [facility] Last Admin: 01/29/17 08:30 Dose: 60 mg Haloperidol (Haldol) 0.5 mg PO Q6H PRN PRN Reason: Extreme agitation Haloperidol Lactate (Haldol) 0.5 mg IM Q6H PRN PRN Reason: Extreme agitation Levothyroxine Sodium (Synthroid) 125 mcg PO ACB [facility] Last Admin: 01/29/17 05:34 Dose: 125 mcg Lisinopril (Prinivil) 20 mg PO DAILY [facility] Last Admin: 01/29/17 08:28 Dose: 20 mg Lorazepam (Ativan) 0.5 mg PO Q6H PRN PRN Reason: Extreme agitation Last Admin: 01/29/17 08:30 Dose: 0.5 mg Lorazepam (Ativan Inj) 0.5 mg IM Q6H PRN PRN Reason: Extreme agitation Multivitamins (Theragran) 1 tab PO DAILY [facility] Last Admin: 01/29/17 08:29 Dose: 1 tab Ondansetron HCl (Zofran Po) 4 mg PO Q6H PRN PRN Reason: Nausea &/or vomiting Last Admin: 01/27/17 13:41 Dose: 4 mg Pantoprazole Sodium (Protonix Tab) 40 mg PO ACB [facility] Last Admin: 01/29/17 05:34 Dose: 40 mg Quetiapine Fumarate (Seroquel) 50 mg PO [facility] Last Admin: 01/29/17 01:30 Dose: Not Given Subjective: Pt seen and chart examined. Nursing reports pt remains depressed. Sleeping well and has a good appetite. On face to face the pt states he does feel depressed. He feels hopeless. He states he wants to go home but admits he does not feel safe at home. We discussed if assisted living would be an option but pt states he really just wants to return to his home. Pt states he did not sleep well last night. Tolerating meds Start Time: 10:30 Stop Time: 10:45 Mental Status Exam Vitals: Last Vital Signs Temp 98.5 F 01/29/17 08:00 Pulse 81 01/29/17 08:00 Resp 16 01/29/17 08:00 BP 125/67 01/29/17 08:00 Pulse Ox 94 01/29/17 08:00 Height: 1.65 m Weight: 82.7 kg - Mental Status Exam Muscle Strength/Tone: Normal Dressing: Casual Grooming: Good Attitude: Cooperative Motor Activity: Normal Eye Contact: Fair Speech: Slowed, Coherent Volume: Soft Rhythm: Appropriate Rhythm Orientation: Oriented to person, Oriented to place, Oriented to time Mood: Depressed, Irritable Rate of Thoughts: Appropriate Rate Thought Organization: Organized Associations: Intact Computation: Intact Thought Content: Hopelessness Perception/Psychotic: Hx psychosis, not current Language: Naming Intact Fund of Knowledge: Appropriate Memory: Grossly Intact Suicidal Ideation: Other (Morbid thoughts) Homicidal Ideation: None Insight: Poor Judgement: Poor Impulse Control: Fair - Laboratory Result Diagrams: 01/25/17 12:44 01/25/17 12:44 Assessment and Plan (1) Major depressive disorder Qualifiers: Major depression recurrence: recurrent Active/Remission status: currently active Major depression episode severity: severe Psychotic features: without psychotic features Qualified Code(s): F33.2 - Major depressive disorder, recurrent severe without psychotic features Current visit: Yes Status: Chronic Increase Seroquel to 75mg at HS. D/C Celexa. Will consider adding Ritalin tomorrow to target energy and motivation (2) Hypothyroidism Current visit: Yes Status: Chronic (3) Chronic migraine Current visit: Yes Status: Chronic (4) Hypertension Current visit: Yes Status: Chronic (5) Dyslipidemia Current visit: Yes Status: Chronic Hospital Course Summary Disclaimer: The visit summary below is not to be considered part of the above Progress Note. Hospital Course: 01/26/17- admit Agree with admission to [facility] for further psychiatric and treatment. Given patients aggressive suicide attempt with overdose recently. He is a level III under strict supervision. Did evaluate all medical screening performed in the emergency room. Will add a TSH for laboratory completeness, given that patient does have a history of hypothyroidism. Continue to encourage cautious use of [place] for chronic back pain. Will also add heat packs to use as needed. Continue to monitor blood pressures. He was borderline elevated this morning, however, this may be secondary to his pain. Continue on lisinopril All psychiatric care as per Dr. Worthington Appreciate medical consultation. The hospitalist services will continue to follow patient medically manage existing comorbidities during his stay at [facility]. At time of discharge medical care will return to primary care provider Dr Jorge Bowser 01/27/17 18:21 Continue current care 01/28/17 18:25 Decrease Celexa to 20mg PO daily Increase Cymbalta to 60mg PO daily 01/29/17 Affact appears flat/depressed. He is off suicide watch Blood pressure is well controlled on Lisinopril continues on usual home medications including lipitor, plavix and levothyroxine Overall appears medically stable Psychiatric care as per Dr. Grullon 01/29/17 11:08 D/C Celexa. Increase Seroquel to 75mg at HS. Consider adding Ritalin
[2017-01-30] MEDS: QUETIAPINE 50 MG TABLET PO SCH ×3 (00:02→23:01)
[2017-01-30] MEDS: ATORVASTATIN 20 MG TABLET PO SCH ×3 (00:02→23:01)
[2017-01-30] MEDS: DULOXETINE 60 MG CAPSULE PO SCH (08:33)
[2017-01-30] MEDS: PANTOPRAZOLE 40 MG TABLET PO SCH (08:33)
[2017-01-30] MEDS: LEVOTHYROXINE 125 MCG TABLET PO SCH (08:33)
[2017-01-30] MEDS: HYDROCODONE/APAP 5mg/325mg TABLET PO PRN ×3 (08:33→20:34)
[2017-01-30] MEDS: MULTI-VITAMIN PLAIN TABLET PO SCH (08:33)
[2017-01-30] MEDS: CLOPIDOGREL 75 MG TABLET PO SCH (08:34)
[2017-01-30] MEDS: LISINOPRIL 20 MG TABLET PO SCH (08:34)
--- NOTE | 2017-01-30 10:56 | Neuropsych Progress Note ---
[facility] Subjective Date: 01/30/17 - Sujective/Severity of Illness Medications: Acetaminophen/Hydrocodone Bitart ([place] 5/325) 1 tab PO TID PRN PRN Reason: Pain Last Admin: 01/30/17 08:33 Dose: 1 tab Atorvastatin Calcium (Lipitor) 20 mg PO HS [facility] Last Admin: 01/30/17 00:02 Dose: Not Given Clopidogrel Bisulfate (Plavix) 75 mg PO DAILY [facility] Last Admin: 01/30/17 08:34 Dose: 75 mg Duloxetine HCl (Cymbalta) 60 mg PO DAILY [facility] Last Admin: 01/30/17 08:33 Dose: 60 mg Haloperidol (Haldol) 0.5 mg PO Q6H PRN PRN Reason: Extreme agitation Haloperidol Lactate (Haldol) 0.5 mg IM Q6H PRN PRN Reason: Extreme agitation Levothyroxine Sodium (Synthroid) 125 mcg PO ACB [facility] Last Admin: 01/30/17 08:33 Dose: 125 mcg Lisinopril (Prinivil) 20 mg PO DAILY [facility] Last Admin: 01/30/17 08:34 Dose: 20 mg Lorazepam (Ativan) 0.5 mg PO Q6H PRN PRN Reason: Extreme agitation Last Admin: 01/29/17 20:51 Dose: 0.5 mg Lorazepam (Ativan Inj) 0.5 mg IM Q6H PRN PRN Reason: Extreme agitation Multivitamins (Theragran) 1 tab PO DAILY [facility] Last Admin: 01/30/17 08:33 Dose: 1 tab Ondansetron HCl (Zofran Po) 4 mg PO Q6H PRN PRN Reason: Nausea &/or vomiting Last Admin: 01/27/17 13:41 Dose: 4 mg Pantoprazole Sodium (Protonix Tab) 40 mg PO ACB [facility] Last Admin: 01/30/17 08:33 Dose: 40 mg Quetiapine Fumarate (Seroquel) 75 mg PO HS [facility] Last Admin: 01/30/17 00:02 Dose: Not Given Subjective: Pt seen and chart examined. Nursing reports pt slept well and has a good appetite. Pt remains depressed. On face to face the pt feels hopeless. He feels nothing will work and told this chief underwriter he wishes the OD was successful. He has some interest in discussing ECT. He continues to have morbid thoughts. Tolerating meds Start Time: 10:30 Stop Time: 10:45 Mental Status Exam Vitals: Last Vital Signs Temp 98.5 F 01/30/17 08:28 Pulse 77 01/30/17 08:28 Resp 16 01/30/17 08:28 BP 132/67 01/30/17 08:28 Pulse Ox 94 01/30/17 08:28 Height: 1.65 m Weight: 82.7 kg - Mental Status Exam Muscle Strength/Tone: Normal Dressing: Casual Grooming: Good Attitude: Cooperative Motor Activity: Normal Eye Contact: Fair Speech: Slowed, Coherent Volume: Soft Rhythm: Appropriate Rhythm Orientation: Oriented to person, Oriented to place, Oriented to time Mood: Depressed, Irritable Rate of Thoughts: Appropriate Rate Thought Organization: Organized Associations: Intact Computation: Intact Thought Content: Hopelessness Perception/Psychotic: Hx psychosis, not current Language: Naming Intact Fund of Knowledge: Appropriate Memory: Grossly Intact Suicidal Ideation: Other (Morbid thoughts) Homicidal Ideation: None Insight: Poor Judgement: Poor Impulse Control: Fair - Laboratory Result Diagrams: 01/25/17 12:44 01/25/17 12:44 Assessment and Plan (1) Major depressive disorder Qualifiers: Major depression recurrence: recurrent Active/Remission status: currently active Major depression episode severity: severe Psychotic features: without psychotic features Qualified Code(s): F33.2 - Major depressive disorder, recurrent severe without psychotic features Current visit: Yes Status: Chronic Continue current care (2) Hypothyroidism Current visit: Yes Status: Chronic (3) Chronic migraine Current visit: Yes Status: Chronic (4) Hypertension Current visit: Yes Status: Chronic (5) Dyslipidemia Current visit: Yes Status: Chronic Hospital Course Summary Disclaimer: The visit summary below is not to be considered part of the above Progress Note. Hospital Course: 01/26/17- admit Agree with admission to [facility] for further psychiatric and treatment. Given patients aggressive suicide attempt with overdose recently. He is a level III under strict supervision. Did evaluate all medical screening performed in the emergency room. Will add a TSH for laboratory completeness, given that patient does have a history of hypothyroidism. Continue to encourage cautious use of [place] for chronic back pain. Will also add heat packs to use as needed. Continue to monitor blood pressures. He was borderline elevated this morning, however, this may be secondary to his pain. Continue on lisinopril All psychiatric care as per Dr. Worthington Appreciate medical consultation. The hospitalist services will continue to follow patient medically manage existing comorbidities during his stay at [facility]. At time of discharge medical care will return to primary care provider Dr Jorge Bowser 01/27/17 18:21 Continue current care 01/28/17 18:25 Decrease Celexa to 20mg PO daily Increase Cymbalta to 60mg PO daily 01/29/17 Affact appears flat/depressed. He is off suicide watch Blood pressure is well controlled on Lisinopril continues on usual home medications including lipitor, plavix and levothyroxine Overall appears medically stable Psychiatric care as per Dr. Grullon 01/29/17 11:08 D/C Celexa. Increase Seroquel to 75mg at HS. Consider adding Ritalin 01/30/17 10:56 Continue current care
[2017-01-31] MEDS: LEVOTHYROXINE 125 MCG TABLET PO SCH (07:19)
[2017-01-31] MEDS: PANTOPRAZOLE 40 MG TABLET PO SCH (07:19)
[2017-01-31] MEDS: LISINOPRIL 20 MG TABLET PO SCH (09:43)
[2017-01-31] MEDS: MULTI-VITAMIN PLAIN TABLET PO SCH (09:43)
[2017-01-31] MEDS: HYDROCODONE/APAP 5mg/325mg TABLET PO PRN ×3 (09:43→20:00)
[2017-01-31] MEDS: CLOPIDOGREL 75 MG TABLET PO SCH (09:44)
[2017-01-31] MEDS: DULOXETINE 60 MG CAPSULE PO SCH (09:44)
--- NOTE | 2017-01-31 13:14 | Neuropsych Progress Note ---
[facility] Subjective Date: 01/31/17 - Sujective/Severity of Illness Medications: Acetaminophen/Hydrocodone Bitart ([place] 5/325) 1 tab PO TID PRN PRN Reason: Pain Last Admin: 01/31/17 09:43 Dose: 1 tab Atorvastatin Calcium (Lipitor) 20 mg PO [facility] Last Admin: 01/30/17 23:01 Dose: Not Given Buspirone HCl (Buspar) 5 mg PO TID [facility] Clopidogrel Bisulfate (Plavix) 75 mg PO DAILY [facility] Last Admin: 01/31/17 09:44 Dose: 75 mg Duloxetine HCl (Cymbalta) 60 mg PO DAILY [facility] Last Admin: 01/31/17 09:44 Dose: 60 mg Haloperidol (Haldol) 0.5 mg PO Q6H PRN PRN Reason: Extreme agitation Haloperidol Lactate (Haldol) 0.5 mg IM Q6H PRN PRN Reason: Extreme agitation Levothyroxine Sodium (Synthroid) 125 mcg PO ACB [facility] Last Admin: 01/31/17 07:19 Dose: 125 mcg Lisinopril (Prinivil) 20 mg PO DAILY [facility] Last Admin: 01/31/17 09:43 Dose: 20 mg Lorazepam (Ativan) 0.5 mg PO Q6H PRN PRN Reason: Extreme agitation Last Admin: 01/29/17 20:51 Dose: 0.5 mg Lorazepam (Ativan Inj) 0.5 mg IM Q6H PRN PRN Reason: Extreme agitation Multivitamins (Theragran) 1 tab PO DAILY [facility] Last Admin: 01/31/17 09:43 Dose: 1 tab Ondansetron HCl (Zofran Po) 4 mg PO Q6H PRN PRN Reason: Nausea &/or vomiting Last Admin: 01/27/17 13:41 Dose: 4 mg Pantoprazole Sodium (Protonix Tab) 40 mg PO ACB [facility] Last Admin: 01/31/17 07:19 Dose: 40 mg Quetiapine Fumarate (Seroquel) 75 mg PO [facility] Last Admin: 01/30/17 23:01 Dose: Not Given Subjective: Patient seen and chart examined. Nursing reports patient slept well and has a good appetite. He continues to have anhedonia, "no motivation", irritable and also has guilt feeling. There is intermittent morbid thoughts where he thinks about dying, but he denies suicide ideation, plan or intent to hurt himself or some other person. Over the weekend Cymbalta was increased to 60mg and patient was told that it may take about a couple of weeks to see any effect. Meanwhile, will start Buspar 5mg TID to target anxiety and augment anti-depressant. Patient also reports that he had some transient chest pain yesterday and will get 12 lead EKG to rule out any [place]. Start Time: 10:00 Stop Time: 10:20 Mental Status Exam Vitals: Last Vital Signs Temp 97.2 F 01/31/17 09:40 Pulse 80 01/31/17 09:40 Resp 16 01/31/17 09:40 BP 128/75 01/31/17 09:40 Pulse Ox 95 01/31/17 09:40 Height: 1.65 m Weight: 82.7 kg - Mental Status Exam Muscle Strength/Tone: Normal Dressing: Casual Grooming: Good Attitude: Cooperative Motor Activity: Normal Eye Contact: Fair Speech: Slowed, Coherent Volume: Soft Rhythm: Appropriate Rhythm Orientation: Oriented to person, Oriented to place, Oriented to time Mood: Depressed, Irritable Rate of Thoughts: Appropriate Rate Thought Organization: Organized Associations: Intact Computation: Intact Thought Content: Hopelessness Perception/Psychotic: Hx psychosis, not current Language: Naming Intact Fund of Knowledge: Appropriate Memory: Grossly Intact Suicidal Ideation: Other (Morbid thoughts) Homicidal Ideation: None Insight: Poor Judgement: Poor Impulse Control: Fair - Laboratory Result Diagrams: 01/31/17 04:36 01/31/17 04:36 Laboratory Results - last 24 hr 01/31/17 01/31/17 04:36 04:36 WBC 5.5 RBC 4.42 L Hgb 14.1 Hct 42.9 MCV 97.1 MCH 31.9 MCHC 32.9 RDW Std Deviation 43.0 Plt Count 119 L MPV 10.4 Immature Gran % (Auto) 0.9 H Neut % (Auto) 53.8 Lymph % (Auto) 23.1 Irion % (Auto) 12.8 H Eos % (Auto) 8.8 H Baso % (Auto) 0.6 Neut # 2.9 Lymph # 1.3 Irion # 0.7 Eos # 0.5 Baso # 0.0 Abs Immat Gran (auto) 0.05 H Turbidity < 20 Sodium 135 Potassium 4.5 Chloride 103 Carbon Dioxide 27 Anion Gap 5 BUN 25.0 H Creatinine 1.1 GFR Calculation 64 BUN/Creatinine Ratio 23 Glucose 86 Calculated Osmolality 263 Calcium 8.7 Icterus Index < 2 Specimen Hemolysis < 15 Assessment and Plan (1) Major depressive disorder Qualifiers: Major depression recurrence: recurrent Active/Remission status: currently active Major depression episode severity: severe Psychotic features: without psychotic features Qualified Code(s): F33.2 - Major depressive disorder, recurrent severe without psychotic features Current visit: Yes Status: Chronic (2) Hypothyroidism Current visit: Yes Status: Chronic (3) Chronic migraine Current visit: Yes Status: Chronic (4) Hypertension Current visit: Yes Status: Chronic (5) Dyslipidemia Current visit: Yes Status: Chronic 1. Urgent EKG today 2. Buspar 5mg TID 3. Supportive therapy 4. discussed ECT option with patient Hospital Course Summary Disclaimer: The visit summary below is not to be considered part of the above Progress Note. Hospital Course: 01/26/17- admit Agree with admission to [facility] for further psychiatric and treatment. Given patients aggressive suicide attempt with overdose recently. He is a level III under strict supervision. Did evaluate all medical screening performed in the emergency room. Will add a TSH for laboratory completeness, given that patient does have a history of hypothyroidism. Continue to encourage cautious use of [place] for chronic back pain. Will also add heat packs to use as needed. Continue to monitor blood pressures. He was borderline elevated this morning, however, this may be secondary to his pain. Continue on lisinopril All psychiatric care as per Dr. Worthington Appreciate medical consultation. The hospitalist services will continue to follow patient medically manage existing comorbidities during his stay at [facility]. At time of discharge medical care will return to primary care provider Dr Jorge Bowser 01/27/17 18:21 Continue current care 01/28/17 18:25 Decrease Celexa to 20mg PO daily Increase Cymbalta to 60mg PO daily 01/29/17 Affact appears flat/depressed. He is off suicide watch Blood pressure is well controlled on Lisinopril continues on usual home medications including lipitor, plavix and levothyroxine Overall appears medically stable Psychiatric care as per Dr. Grullon 01/29/17 11:08 D/C Celexa. Increase Seroquel to 75mg at HS. Consider adding Ritalin 01/30/17 10:56 Continue current care
[2017-01-31] MEDS: BUSPIRONE 5 MG TABLET PO SCH ×2 (14:28→20:02)
[2017-01-31] MEDS: ATORVASTATIN 20 MG TABLET PO SCH (20:01)
[2017-01-31] MEDS: QUETIAPINE 50 MG TABLET PO SCH (20:01)
[2017-02-01] MEDS: QUETIAPINE 50 MG TABLET PO SCH ×2 (03:06→19:36)
[2017-02-01] MEDS: ATORVASTATIN 20 MG TABLET PO SCH ×2 (03:06→19:36)
[2017-02-01] MEDS: LEVOTHYROXINE 125 MCG TABLET PO SCH (06:38)
[2017-02-01] MEDS: PANTOPRAZOLE 40 MG TABLET PO SCH (06:38)
[2017-02-01] MEDS: DULOXETINE 60 MG CAPSULE PO SCH (08:17)
[2017-02-01] MEDS: MULTI-VITAMIN PLAIN TABLET PO SCH (08:18)
[2017-02-01] MEDS: BUSPIRONE 5 MG TABLET PO SCH ×3 (08:18→19:36)
[2017-02-01] MEDS: CLOPIDOGREL 75 MG TABLET PO SCH (08:18)
[2017-02-01] MEDS: LISINOPRIL 20 MG TABLET PO SCH (08:19)
[2017-02-01] MEDS: HYDROCODONE/APAP 5mg/325mg TABLET PO PRN ×3 (08:19→22:08)
--- NOTE | 2017-02-01 13:39 | Progress Note ---
Subjective: Mr. Acevedo is seen today in follow up for his depression. He is seen while resting in his room. He continues to complain of chronic knee and back pain and states that he was initially on [place] 10 but decided to decrease his dose to [place] 5 but does not feel like it is helping. He received an Ultram last night due to his pain which he states helped. He denies any other complaints including no chest pain, shortness of breath, abdominal pain, nausea, vomiting or dysuria. He had a BM today and states that his appetite is good as long as the food is good. Nursing reports that he continues to struggle with severe depression and decreased energy. Objective Vital signs: Temperature 97.4 F 02/01/17 08:00 Pulse Rate 79 02/01/17 08:00 Respiratory Rate 16 02/01/17 08:00 Blood Pressure 138/74 02/01/17 08:00 Pulse Oximetry 95 02/01/17 08:00 Oxygen Delivery Method Room Air Weight: 182 lb 5.156 oz - Constitutional Present: no acute distress, well nourished, well developed, cooperative Comments: very soft spoken - Routine HEENT Exam Head: Present: normocephalic, atraumatic Eye: Absent: conjunctival icterus, scleral injection ENT: Present: mucous membranes moist - Routine Respiratory Exam Present: CTA bilaterally. Absent: rhonchi, stridor, wheezes - Routine Cardiovascular Exam Present: RRR, S1, S2 - Routine Abdominal Exam Present: soft, normoactive bowel sounds, non distended, non tender - Routine Extremities Exam Present: no edema, non tender, full ROM, pulses intact. Absent: calf tenderness - Routine Back/Spine/Pelvis Exam Back/Spine: Present: full ROM. Absent: CVA tenderness - Routine Musculoskeletal Exam Musculoskeletal: Present: normal strength, moving extremities well. Absent: joint erythera - Routine Skin Exam Present: intact, dry, warm. Absent: jaundice - Routine Neurological Exam Present: alert, moving all extremities, normal tone, normal speech - Routine Psychiatric Exam Present: normal thought process, cooperative, depressed Results - Labs CBC & Chem 7: 01/31/17 04:36 01/31/17 04:36 Assessment and Plan (1) Major depressive disorder Current visit: Yes Status: Chronic (2) Hypothyroidism Current visit: Yes Status: Chronic (3) Chronic migraine Current visit: Yes Status: Chronic (4) Hypertension Current visit: Yes Status: Chronic (5) Dyslipidemia Current visit: Yes Status: Chronic (6) Suicide attempt Problem details: Alprazolam overdose Current visit: Yes Status: Acute (7) Chronic back pain Current visit: Yes Status: Chronic Assessment and Plan: 02/01/17 Overall, Booker is medically stable. He continues to have flat, depressed affect and struggles with energy. He denies any SI, but has morbid thoughts. Continue psychiatric care. Continue to provide safe and supportive environment. Blood pressure remains well controlled on Lisinopril. Continue to monitor. Continues on usual home medications including lipitor, plavix and levothyroxine. Continue to complains of chronic pain in knees and back and requests to have his [place] dose increased to 10mg. Currently also on Ultram which he states helps. Will increase [place] to 2 tabs po Q6H PRN pain for additional pain control. Recent labs on 01/31 showed new thrombocytopenia with platelets at 119 but otherwise unremarkable. Recheck labs on 02/07/17 to monitor blood counts, electrolytes and renal function. Sepsis Assessment - Evaluation Sepsis screening result: No Definite Risk Hospital Course Summary Disclaimer: The visit summary below is not to be considered part of the above Progress Note. Hospital Course: 01/26/17- admit Agree with admission to [facility] for further psychiatric and treatment. Given patients aggressive suicide attempt with overdose recently. He is a level III under strict supervision. Did evaluate all medical screening performed in the emergency room. Will add a TSH for laboratory completeness, given that patient does have a history of hypothyroidism. Continue to encourage cautious use of [place] for chronic back pain. Will also add heat packs to use as needed. Continue to monitor blood pressures. He was borderline elevated this morning, however, this may be secondary to his pain. Continue on lisinopril All psychiatric care as per Dr. Worthington Appreciate medical consultation. The hospitalist services will continue to follow patient medically manage existing comorbidities during his stay at [facility]. At time of discharge medical care will return to primary care provider Dr Jorge Bowser 01/27/17 18:21 Continue current care 01/28/17 18:25 Decrease Celexa to 20mg PO daily Increase Cymbalta to 60mg PO daily 01/29/17 Affact appears flat/depressed. He is off suicide watch Blood pressure is well controlled on Lisinopril continues on usual home medications including lipitor, plavix and levothyroxine Overall appears medically stable Psychiatric care as per Dr. Grullon 01/29/17 11:08 D/C Celexa. Increase Seroquel to 75mg at HS. Consider adding Ritalin 01/30/17 10:56 Continue current care 02/01/17 13:46 02/01/17 Overall, Booker is medically stable. He continues to have flat, depressed affect and struggles with energy. He denies any SI, but has morbid thoughts. Continue psychiatric care. Continue to provide safe and supportive environment. Blood pressure remains well controlled on Lisinopril. Continue to monitor. Continues on usual home medications including lipitor, plavix and levothyroxine. Continue to complains of chronic pain in knees and back and requests to have his [place] dose increased to 10mg. Currently also on Ultram which he states helps. Will increase [place] to 2 tabs po Q6H PRN pain for additional pain control. Recent labs on 01/31 showed new thrombocytopenia with platelets at 119 but otherwise unremarkable. Recheck labs on 02/07/17 to monitor blood counts, electrolytes and renal function.
--- NOTE | 2017-02-01 15:34 | Neuropsych Progress Note ---
[facility] Subjective Date: 02/01/17 - Sujective/Severity of Illness Medications: Acetaminophen/Hydrocodone Bitart ([place] 5/325) 1 tab PO TID PRN PRN Reason: Pain Last Admin: 02/01/17 08:19 Dose: 1 tab Acetaminophen/Hydrocodone Bitart ([place] 5/325) 2 tab PO Q6H PRN PRN Reason: Pain Atorvastatin Calcium (Lipitor) 20 mg PO [facility] Last Admin: 02/01/17 03:06 Dose: Not Given Buspirone HCl (Buspar) 5 mg PO TID [facility] Last Admin: 02/01/17 14:33 Dose: 5 mg Clopidogrel Bisulfate (Plavix) 75 mg PO DAILY [facility] Last Admin: 02/01/17 08:18 Dose: 75 mg Duloxetine HCl (Cymbalta) 60 mg PO DAILY [facility] Last Admin: 02/01/17 08:17 Dose: 60 mg Haloperidol (Haldol) 0.5 mg PO Q6H PRN PRN Reason: Extreme agitation Haloperidol Lactate (Haldol) 0.5 mg IM Q6H PRN PRN Reason: Extreme agitation Levothyroxine Sodium (Synthroid) 125 mcg PO ACB [facility] Last Admin: 02/01/17 06:38 Dose: 125 mcg Lisinopril (Prinivil) 20 mg PO DAILY [facility] Last Admin: 02/01/17 08:19 Dose: 20 mg Lorazepam (Ativan) 0.5 mg PO Q6H PRN PRN Reason: Extreme agitation Last Admin: 01/29/17 20:51 Dose: 0.5 mg Lorazepam (Ativan Inj) 0.5 mg IM Q6H PRN PRN Reason: Extreme agitation Multivitamins (Theragran) 1 tab PO DAILY [facility] Last Admin: 02/01/17 08:18 Dose: 1 tab Ondansetron HCl (Zofran Po) 4 mg PO Q6H PRN PRN Reason: Nausea &/or vomiting Last Admin: 01/27/17 13:41 Dose: 4 mg Pantoprazole Sodium (Protonix Tab) 40 mg PO ACB [facility] Last Admin: 02/01/17 06:38 Dose: 40 mg Quetiapine Fumarate (Seroquel) 75 mg PO [facility] Last Admin: 02/01/17 03:06 Dose: Not Given Subjective: Patient seen and chart examined. He is been managed for MDD with Cymbalta 60mg , Buspar 5mg TID and Seroquel 75mg q HS. He endorses anhedonia, "no motivation ", irritable mood and also has guilt feeling. EKG from yesterday showed a sinus rhythm, with LBBB and Qtc of 432. Patient was seen to be in better mood today than yesterday and he denies any suicide ideation, intent or plans to hurt himself or some other person. Start Time: 12:00 Stop Time: 12:15 Mental Status Exam Vitals: Last Vital Signs Temp 97.4 F 02/01/17 08:00 Pulse 79 02/01/17 08:00 Resp 16 02/01/17 08:00 BP 138/74 02/01/17 08:00 Pulse Ox 95 02/01/17 08:00 Height: 1.65 m Weight: 82.7 kg - Mental Status Exam Muscle Strength/Tone: Normal Dressing: Casual Grooming: Good Attitude: Cooperative Motor Activity: Normal Eye Contact: Fair Speech: Slowed, Coherent Volume: Soft Rhythm: Appropriate Rhythm Orientation: Oriented to person, Oriented to place, Oriented to time Mood: Depressed Affect: Anxious Rate of Thoughts: Appropriate Rate Thought Organization: Organized Associations: Intact Computation: Intact Thought Content: Hopelessness Perception/Psychotic: Hx psychosis, not current Language: Naming Intact Fund of Knowledge: Appropriate Memory: Grossly Intact Suicidal Ideation: Other (Morbid thoughts, but denies SI or plan) Homicidal Ideation: None Insight: Poor Judgement: Poor Impulse Control: Fair - Laboratory Result Diagrams: 01/31/17 04:36 01/31/17 04:36 Assessment and Plan (1) Major depressive disorder Qualifiers: Major depression recurrence: recurrent Active/Remission status: currently active Major depression episode severity: severe Psychotic features: without psychotic features Qualified Code(s): F33.2 - Major depressive disorder, recurrent severe without psychotic features Current visit: Yes Status: Chronic (2) Hypothyroidism Current visit: Yes Status: Chronic (3) Chronic migraine Current visit: Yes Status: Chronic (4) Hypertension Current visit: Yes Status: Chronic (5) Dyslipidemia Current visit: Yes Status: Chronic Cont current management and will plan to titrate Buspar tomorrow. Hospital Course Summary Disclaimer: The visit summary below is not to be considered part of the above Progress Note. Hospital Course: 01/26/17- admit Agree with admission to [facility] for further psychiatric and treatment. Given patients aggressive suicide attempt with overdose recently. He is a level III under strict supervision. Did evaluate all medical screening performed in the emergency room. Will add a TSH for laboratory completeness, given that patient does have a history of hypothyroidism. Continue to encourage cautious use of [place] for chronic back pain. Will also add heat packs to use as needed. Continue to monitor blood pressures. He was borderline elevated this morning, however, this may be secondary to his pain. Continue on lisinopril All psychiatric care as per Dr. Worthington Appreciate medical consultation. The hospitalist services will continue to follow patient medically manage existing comorbidities during his stay at [facility]. At time of discharge medical care will return to primary care provider Dr Jorge Bowser 01/27/17 18:21 Continue current care 01/28/17 18:25 Decrease Celexa to 20mg PO daily Increase Cymbalta to 60mg PO daily 01/29/17 Affact appears flat/depressed. He is off suicide watch Blood pressure is well controlled on Lisinopril continues on usual home medications including lipitor, plavix and levothyroxine Overall appears medically stable Psychiatric care as per Dr. Grullon 01/29/17 11:08 D/C Celexa. Increase Seroquel to 75mg at HS. Consider adding Ritalin 01/30/17 10:56 Continue current care 02/01/17 13:46 02/01/17 Overall, Booker is medically stable. He continues to have flat, depressed affect and struggles with energy. He denies any SI, but has morbid thoughts. Continue psychiatric care. Continue to provide safe and supportive environment. Blood pressure remains well controlled on Lisinopril. Continue to monitor. Continues on usual home medications including lipitor, plavix and levothyroxine. Continue to complains of chronic pain in knees and back and requests to have his [place] dose increased to 10mg. Currently also on Ultram which he states helps. Will increase [place] to 2 tabs po Q6H PRN pain for additional pain control. Recent labs on 01/31 showed new thrombocytopenia with platelets at 119 but otherwise unremarkable. Recheck labs on 02/07/17 to monitor blood counts, electrolytes and renal function.
[2017-02-02] MEDS: ATORVASTATIN 20 MG TABLET PO SCH ×3 (01:01→21:47)
[2017-02-02] MEDS: BUSPIRONE 5 MG TABLET PO SCH ×3 (01:01→15:29)
[2017-02-02] MEDS: QUETIAPINE 50 MG TABLET PO SCH ×3 (01:01→21:47)
[2017-02-02] MEDS: LEVOTHYROXINE 125 MCG TABLET PO SCH (06:28)
[2017-02-02] MEDS: PANTOPRAZOLE 40 MG TABLET PO SCH (06:28)
[2017-02-02] MEDS: LISINOPRIL 20 MG TABLET PO SCH (08:19)
[2017-02-02] MEDS: MULTI-VITAMIN PLAIN TABLET PO SCH (08:19)
[2017-02-02] MEDS: CLOPIDOGREL 75 MG TABLET PO SCH (08:19)
[2017-02-02] MEDS: DULOXETINE 60 MG CAPSULE PO SCH (08:19)
[2017-02-02] MEDS: HYDROCODONE/APAP 5mg/325mg TABLET PO PRN ×3 (08:20→20:44)
[2017-02-02] MEDS: LORazepam 0.5 MG TABLET PO PRN (14:02)
[2017-02-02] MEDS ORDERED: BUSPIRONE 10 MG TABLET PO ONE (17:15)
--- NOTE | 2017-02-02 20:13 | Neuropsych Progress Note ---
[facility] Subjective Date: 02/02/17 - Sujective/Severity of Illness Medications: Acetaminophen/Hydrocodone Bitart (Burnside 5/325) 1 tab PO TID PRN PRN Reason: Pain Last Admin: 02/02/17 14:02 Dose: 1 tab Acetaminophen/Hydrocodone Bitart (Burnside 5/325) 2 tab PO Q6H PRN PRN Reason: Pain Last Admin: 02/01/17 22:08 Dose: 2 tab Atorvastatin Calcium (Lipitor) 20 mg PO HS [facility] Last Admin: 02/02/17 01:01 Dose: Not Given Buspirone HCl (Buspar) 10 mg PO TID [facility] Clopidogrel Bisulfate (Plavix) 75 mg PO DAILY [facility] Last Admin: 02/02/17 08:19 Dose: 75 mg Duloxetine HCl (Cymbalta) 60 mg PO DAILY [facility] Last Admin: 02/02/17 08:19 Dose: 60 mg Haloperidol (Haldol) 0.5 mg PO Q6H PRN PRN Reason: Extreme agitation Haloperidol Lactate (Haldol) 0.5 mg IM Q6H PRN PRN Reason: Extreme agitation Levothyroxine Sodium (Synthroid) 125 mcg PO ACB [facility] Last Admin: 02/02/17 06:28 Dose: 125 mcg Lisinopril (Prinivil) 20 mg PO DAILY [facility] Last Admin: 02/02/17 08:19 Dose: 20 mg Lorazepam (Ativan) 0.5 mg PO Q6H PRN PRN Reason: Extreme agitation Last Admin: 02/02/17 14:02 Dose: 0.5 mg Lorazepam (Ativan Inj) 0.5 mg IM Q6H PRN PRN Reason: Extreme agitation Multivitamins (Theragran) 1 tab PO DAILY [facility] Last Admin: 02/02/17 08:19 Dose: 1 tab Ondansetron HCl (Zofran Po) 4 mg PO Q6H PRN PRN Reason: Nausea &/or vomiting Last Admin: 01/27/17 13:41 Dose: 4 mg Pantoprazole Sodium (Protonix Tab) 40 mg PO ACB [facility] Last Admin: 02/02/17 06:28 Dose: 40 mg Quetiapine Fumarate (Seroquel) 75 mg PO HS [facility] Last Admin: 02/02/17 01:01 Dose: Not Given Subjective: Patient seen and chart examined. He is being managed for MDD with Cymbalta 60mg , Buspar 5mg TID and Seroquel 75mg q HS. He contiinue endorses anhedonia, "no motivation", irritable mood and also has guilt feeling. He also reports low energy which appears to more physical than mental. He required PRN Burnside and Lorazepam in the last 24 hours. It was explained to patient and he understands that both Narcotics and Benzodiazpine are depressant. Discussed the option of using scheduled Tramadol and changing Burnside to PRN and he plans to think about that. Patient denies any suicide ideation, intent or plans to hurt himself or some other person. He denies AH/VH and he feels like he is sleeping better. Objectively he appears to have relatively broader affect. EKG on01/31/17 showed a sinus rhythm, with LBBB and Qtc of 432. Start Time: 16:45 Stop Time: 17:00 Mental Status Exam Vitals: Last Vital Signs Temp 98.4 F 02/02/17 19:23 Pulse 85 02/02/17 19:23 Resp 20 02/02/17 19:23 BP 140/71 H 02/02/17 19:23 Pulse Ox 93 02/02/17 19:23 Height: 1.65 m Weight: 82.7 kg - Mental Status Exam Muscle Strength/Tone: Normal Dressing: Casual Grooming: Good Attitude: Cooperative Motor Activity: Normal Eye Contact: Fair Speech: Slowed, Coherent Volume: Soft Rhythm: Appropriate Rhythm Orientation: Oriented to person, Oriented to place, Oriented to time Mood: Depressed Affect: Depressed (less depressed today and appears to smile during interaction) Rate of Thoughts: Appropriate Rate Thought Organization: Organized Associations: Intact Computation: Intact Thought Content: Ruminations Perception/Psychotic: Hx psychosis, not current Language: Naming Intact Fund of Knowledge: Appropriate Memory: Grossly Intact Suicidal Ideation: Other (Morbid thoughts, but denies SI or plan) Homicidal Ideation: None Insight: Poor Judgement: Poor Impulse Control: Fair - Laboratory Result Diagrams: 01/31/17 04:36 01/31/17 04:36 Assessment and Plan (1) Major depressive disorder Qualifiers: Major depression recurrence: recurrent Active/Remission status: currently active Major depression episode severity: severe Psychotic features: without psychotic features Qualified Code(s): F33.2 - Major depressive disorder, recurrent severe without psychotic features Current visit: Yes Status: Chronic (2) Hypothyroidism Current visit: Yes Status: Chronic (3) Chronic migraine Current visit: Yes Status: Chronic (4) Hypertension Current visit: Yes Status: Chronic (5) Dyslipidemia Current visit: Yes Status: Chronic Hospital Course Summary Disclaimer: The visit summary below is not to be considered part of the above Progress Note. Hospital Course: 01/26/17- admit Agree with admission to [facility] for further psychiatric and treatment. Given patients aggressive suicide attempt with overdose recently. He is a level III under strict supervision. Did evaluate all medical screening performed in the emergency room. Will add a TSH for laboratory completeness, given that patient does have a history of hypothyroidism. Continue to encourage cautious use of Burnside for chronic back pain. Will also add heat packs to use as needed. Continue to monitor blood pressures. He was borderline elevated this morning, however, this may be secondary to his pain. Continue on lisinopril All psychiatric care as per Dr. Worthington Appreciate medical consultation. The hospitalist services will continue to follow patient medically manage existing comorbidities during his stay at [facility]. At time of discharge medical care will return to primary care provider Dr Jorge Bowser 01/27/17 18:21 Continue current care 01/28/17 18:25 Decrease Celexa to 20mg PO daily Increase Cymbalta to 60mg PO daily 01/29/17 Affact appears flat/depressed. He is off suicide watch Blood pressure is well controlled on Lisinopril continues on usual home medications including lipitor, plavix and levothyroxine Overall appears medically stable Psychiatric care as per Dr. Grullon 01/29/17 11:08 D/C Celexa. Increase Seroquel to 75mg at HS. Consider adding Ritalin 01/30/17 10:56 Continue current care 02/01/17 13:46 02/01/17 Overall, Booker is medically stable. He continues to have flat, depressed affect and struggles with energy. He denies any SI, but has morbid thoughts. Continue psychiatric care. Continue to provide safe and supportive environment. Blood pressure remains well controlled on Lisinopril. Continue to monitor. Continues on usual home medications including lipitor, plavix and levothyroxine. Continue to complains of chronic pain in knees and back and requests to have his Burnside dose increased to 10mg. Currently also on Ultram which he states helps. Will increase Burnside to 2 tabs po Q6H PRN pain for additional pain control. Recent labs on 01/31 showed new thrombocytopenia with platelets at 119 but otherwise unremarkable. Recheck labs on 02/07/17 to monitor blood counts, electrolytes and renal function. 02/02/17 20:14: Increase the dose of Buspar to 10mg TID. Cont supportive therapy
[2017-02-02] MEDS: BUSPIRONE 10 MG TABLET PO SCH (20:44)
[2017-02-03] MEDS: PANTOPRAZOLE 40 MG TABLET PO SCH (08:08)
[2017-02-03] MEDS: LEVOTHYROXINE 125 MCG TABLET PO SCH (08:08)
[2017-02-03] MEDS: DULOXETINE 60 MG CAPSULE PO SCH (08:09)
[2017-02-03] MEDS: CLOPIDOGREL 75 MG TABLET PO SCH (08:09)
[2017-02-03] MEDS: BUSPIRONE 10 MG TABLET PO SCH ×3 (08:09→20:39)
[2017-02-03] MEDS: MULTI-VITAMIN PLAIN TABLET PO SCH (08:10)
[2017-02-03] MEDS: LISINOPRIL 20 MG TABLET PO SCH (08:10)
[2017-02-03] MEDS: HYDROCODONE/APAP 5mg/325mg TABLET PO PRN ×3 (08:18→20:40)
--- NOTE | 2017-02-03 17:35 | Neuropsych Progress Note ---
[facility] Subjective Date: 02/03/17 - Sujective/Severity of Illness Medications: Acetaminophen/Hydrocodone Bitart (Surfside 5/325) 1 - 2 tab PO Q6H PRN PRN Reason: Pain Last Admin: 02/03/17 14:46 Dose: 2 tab Atorvastatin Calcium (Lipitor) 20 mg PO HS [facility] Last Admin: 02/02/17 21:47 Dose: Not Given Buspirone HCl (Buspar) 10 mg PO TID [facility] Last Admin: 02/03/17 14:45 Dose: 10 mg Clopidogrel Bisulfate (Plavix) 75 mg PO DAILY [facility] Last Admin: 02/03/17 08:09 Dose: 75 mg Duloxetine HCl (Cymbalta) 60 mg PO DAILY [facility] Last Admin: 02/03/17 08:09 Dose: 60 mg Haloperidol (Haldol) 0.5 mg PO Q6H PRN PRN Reason: Extreme agitation Haloperidol Lactate (Haldol) 0.5 mg IM Q6H PRN PRN Reason: Extreme agitation Levothyroxine Sodium (Synthroid) 125 mcg PO ACB [facility] Last Admin: 02/03/17 08:08 Dose: 125 mcg Lisinopril (Prinivil) 20 mg PO DAILY [facility] Last Admin: 02/03/17 08:10 Dose: 20 mg Lorazepam (Ativan) 0.5 mg PO Q6H PRN PRN Reason: Extreme agitation Last Admin: 02/02/17 14:02 Dose: 0.5 mg Lorazepam (Ativan Inj) 0.5 mg IM Q6H PRN PRN Reason: Extreme agitation Multivitamins (Theragran) 1 tab PO DAILY [facility] Last Admin: 02/03/17 08:10 Dose: 1 tab Ondansetron HCl (Zofran Po) 4 mg PO Q6H PRN PRN Reason: Nausea &/or vomiting Last Admin: 01/27/17 13:41 Dose: 4 mg Pantoprazole Sodium (Protonix Tab) 40 mg PO ACB [facility] Last Admin: 02/03/17 08:08 Dose: 40 mg Quetiapine Fumarate (Seroquel) 75 mg PO [facility] Last Admin: 02/02/17 21:47 Dose: Not Given Subjective: Pt seen and chart examined. Nursing reports pt is doing well on the unit. Sleeping well and has a good appetite. No behaviors noted. On face to face the pt states he feels a little better. He denies any S/I although he still worries about going home and managing his life. He reports tolerating his medication well. Start Time: 16:30 Stop Time: 16:45 Mental Status Exam Vitals: Last Vital Signs Temp 98.6 F 02/03/17 16:00 Pulse 77 02/03/17 16:00 Resp 16 02/03/17 16:00 BP 127/66 02/03/17 16:00 Pulse Ox 95 02/03/17 16:00 Height: 1.65 m Weight: 82.7 kg - Mental Status Exam Muscle Strength/Tone: Normal Dressing: Casual Grooming: Good Attitude: Cooperative Motor Activity: Normal Eye Contact: Fair Speech: Slowed, Coherent Volume: Soft Rhythm: Appropriate Rhythm Orientation: Oriented to person, Oriented to place, Oriented to time Mood: Depressed Rate of Thoughts: Appropriate Rate Thought Organization: Organized Associations: Intact Computation: Intact Thought Content: Ruminations Perception/Psychotic: Hx psychosis, not current Language: Naming Intact Fund of Knowledge: Appropriate Memory: Grossly Intact Suicidal Ideation: Denies Homicidal Ideation: None Insight: Poor Judgement: Poor Impulse Control: Fair - Laboratory Result Diagrams: 01/31/17 04:36 01/31/17 04:36 Assessment and Plan (1) Major depressive disorder Qualifiers: Major depression recurrence: recurrent Active/Remission status: currently active Major depression episode severity: severe Psychotic features: without psychotic features Qualified Code(s): F33.2 - Major depressive disorder, recurrent severe without psychotic features Current visit: Yes Status: Chronic Continue current care (2) Hypothyroidism Current visit: Yes Status: Chronic (3) Chronic migraine Current visit: Yes Status: Chronic (4) Hypertension Current visit: Yes Status: Chronic (5) Dyslipidemia Current visit: Yes Status: Chronic Hospital Course Summary Disclaimer: The visit summary below is not to be considered part of the above Progress Note. Hospital Course: 01/26/17- admit Agree with admission to [facility] for further psychiatric and treatment. Given patients aggressive suicide attempt with overdose recently. He is a level III under strict supervision. Did evaluate all medical screening performed in the emergency room. Will add a TSH for laboratory completeness, given that patient does have a history of hypothyroidism. Continue to encourage cautious use of Surfside for chronic back pain. Will also add heat packs to use as needed. Continue to monitor blood pressures. He was borderline elevated this morning, however, this may be secondary to his pain. Continue on lisinopril All psychiatric care as per Dr. Worthington Appreciate medical consultation. The hospitalist services will continue to follow patient medically manage existing comorbidities during his stay at [facility]. At time of discharge medical care will return to primary care provider Dr Jorge Bowser 01/27/17 18:21 Continue current care 01/28/17 18:25 Decrease Celexa to 20mg PO daily Increase Cymbalta to 60mg PO daily 01/29/17 Affact appears flat/depressed. He is off suicide watch Blood pressure is well controlled on Lisinopril continues on usual home medications including lipitor, plavix and levothyroxine Overall appears medically stable Psychiatric care as per Dr. Grullon 01/29/17 11:08 D/C Celexa. Increase Seroquel to 75mg at HS. Consider adding Ritalin 01/30/17 10:56 Continue current care 02/01/17 13:46 02/01/17 Overall, Booker is medically stable. He continues to have flat, depressed affect and struggles with energy. He denies any SI, but has morbid thoughts. Continue psychiatric care. Continue to provide safe and supportive environment. Blood pressure remains well controlled on Lisinopril. Continue to monitor. Continues on usual home medications including lipitor, plavix and levothyroxine. Continue to complains of chronic pain in knees and back and requests to have his Surfside dose increased to 10mg. Currently also on Ultram which he states helps. Will increase Surfside to 2 tabs po Q6H PRN pain for additional pain control. Recent labs on 01/31 showed new thrombocytopenia with platelets at 119 but otherwise unremarkable. Recheck labs on 02/07/17 to monitor blood counts, electrolytes and renal function. 02/02/17 20:14: Increase the dose of Buspar to 10mg TID. Cont supportive therapy 02/03/17 17:35 Continue current care
[2017-02-03] MEDS: ATORVASTATIN 20 MG TABLET PO SCH (20:39)
[2017-02-03] MEDS: QUETIAPINE 50 MG TABLET PO SCH (20:39)
[2017-02-04] MEDS: PANTOPRAZOLE 40 MG TABLET PO SCH (07:02)
[2017-02-04] MEDS: LEVOTHYROXINE 125 MCG TABLET PO SCH (07:02)
[2017-02-04] MEDS: LISINOPRIL 20 MG TABLET PO SCH (08:05)
[2017-02-04] MEDS: DULOXETINE 60 MG CAPSULE PO SCH (08:09)
[2017-02-04] MEDS: BUSPIRONE 10 MG TABLET PO SCH ×3 (08:09→20:31)
[2017-02-04] MEDS: MULTI-VITAMIN PLAIN TABLET PO SCH (08:09)
[2017-02-04] MEDS: CLOPIDOGREL 75 MG TABLET PO SCH (08:09)
[2017-02-04] MEDS: HYDROCODONE/APAP 5mg/325mg TABLET PO PRN ×2 (08:41→20:31)
--- NOTE | 2017-02-04 09:39 | Progress Note ---
Subjective: Booker is seen this morning during breakfast. He states that he is "not well" because the sleeping pill "knocks him out". He denies having any pain or shortness of breath. Denies GI complaints and appetite is good. Vital signs are normal, BP 133/67. Objective Vital signs: Temperature 97.4 F 02/04/17 08:00 Pulse Rate 75 02/04/17 08:00 Respiratory Rate 14 02/04/17 08:00 Blood Pressure 133/67 02/04/17 08:00 Pulse Oximetry 96 02/04/17 08:00 Oxygen Delivery Method Room Air Weight: 82.7 kg - Constitutional Present: no acute distress - Routine HEENT Exam Head: Present: normocephalic, atraumatic Eye: Present: EOMI, PERRL - Routine Respiratory Exam Present: CTA bilaterally - Routine Cardiovascular Exam Present: RRR, S1, S2, no murmur - Routine Abdominal Exam Present: soft, normoactive bowel sounds - Routine Extremities Exam Present: full ROM - Routine Back/Spine/Pelvis Exam Back/Spine: Present: full ROM Results - Labs CBC & Chem 7: 01/31/17 04:36 01/31/17 04:36 Assessment and Plan (1) Major depressive disorder Current visit: Yes Status: Chronic (2) Hypothyroidism Current visit: Yes Status: Chronic (3) Chronic migraine Current visit: Yes Status: Chronic (4) Hypertension Current visit: Yes Status: Chronic (5) Dyslipidemia Current visit: Yes Status: Chronic (6) Suicide attempt Problem details: Alprazolam overdose Current visit: Yes Status: Acute (7) Chronic back pain Current visit: Yes Status: Chronic Assessment and Plan: 02/04 Continue psychiatric care. Continue to provide safe and supportive environment. Blood pressure remains well controlled on Lisinopril. Today BP 133/67, continue to monitor. Continue with Walnut to 2 tabs po Q6H PRN pain Recheck labs on 02/07/17 to monitor blood counts, electrolytes and renal function. Sepsis Assessment - Evaluation Sepsis screening result: No Definite Risk Hospital Course Summary Disclaimer: The visit summary below is not to be considered part of the above Progress Note. Hospital Course: 01/26/17- admit Agree with admission to [facility] for further psychiatric and treatment. Given patients aggressive suicide attempt with overdose recently. He is a level III under strict supervision. Did evaluate all medical screening performed in the emergency room. Will add a TSH for laboratory completeness, given that patient does have a history of hypothyroidism. Continue to encourage cautious use of Walnut for chronic back pain. Will also add heat packs to use as needed. Continue to monitor blood pressures. He was borderline elevated this morning, however, this may be secondary to his pain. Continue on lisinopril All psychiatric care as per Dr. Worthington Appreciate medical consultation. The hospitalist services will continue to follow patient medically manage existing comorbidities during his stay at [facility]. At time of discharge medical care will return to primary care provider Dr Jorge Bowser 01/27/17 18:21 Continue current care 01/28/17 18:25 Decrease Celexa to 20mg PO daily Increase Cymbalta to 60mg PO daily 01/29/17 Affact appears flat/depressed. He is off suicide watch Blood pressure is well controlled on Lisinopril continues on usual home medications including lipitor, plavix and levothyroxine Overall appears medically stable Psychiatric care as per Dr. Grullon 01/29/17 11:08 D/C Celexa. Increase Seroquel to 75mg at HS. Consider adding Ritalin 01/30/17 10:56 Continue current care 02/01/17 13:46 02/01/17 Overall, Booker is medically stable. He continues to have flat, depressed affect and struggles with energy. He denies any SI, but has morbid thoughts. Continue psychiatric care. Continue to provide safe and supportive environment. Blood pressure remains well controlled on Lisinopril. Continue to monitor. Continues on usual home medications including lipitor, plavix and levothyroxine. Continue to complains of chronic pain in knees and back and requests to have his Walnut dose increased to 10mg. Currently also on Ultram which he states helps. Will increase Wal[place] to 2 tabs po Q6H PRN pain for additional pain control. Recent labs on 01/31 showed new thrombocytopenia with platelets at 119 but otherwise unremarkable. Recheck labs on 02/07/17 to monitor blood counts, electrolytes and renal function. 02/02/17 20:14: Increase the dose of Buspar to 10mg TID. Cont supportive therapy 02/03/17 17:35 Continue current care
--- NOTE | 2017-02-04 17:36 | Neuropsych Progress Note ---
[facility] Subjective Date: 02/04/17 - Sujective/Severity of Illness Medications: Acetaminophen/Hydrocodone Bitart (Milburn 5/325) 1 - 2 tab PO Q6H PRN PRN Reason: Pain Last Admin: 02/04/17 08:41 Dose: 1 tab Atorvastatin Calcium (Lipitor) 20 mg PO HS [facility] Last Admin: 02/03/17 20:39 Dose: 20 mg Buspirone HCl (Buspar) 10 mg PO TID [facility] Last Admin: 02/04/17 14:33 Dose: 10 mg Clopidogrel Bisulfate (Plavix) 75 mg PO DAILY [facility] Last Admin: 02/04/17 08:09 Dose: 75 mg Duloxetine HCl (Cymbalta) 60 mg PO DAILY [facility] Last Admin: 02/04/17 08:09 Dose: 60 mg Haloperidol (Haldol) 0.5 mg PO Q6H PRN PRN Reason: Extreme agitation Haloperidol Lactate (Haldol) 0.5 mg IM Q6H PRN PRN Reason: Extreme agitation Levothyroxine Sodium (Synthroid) 125 mcg PO ACB [facility] Last Admin: 02/04/17 07:02 Dose: 125 mcg Lisinopril (Prinivil) 20 mg PO DAILY [facility] Last Admin: 02/04/17 08:05 Dose: 20 mg Lorazepam (Ativan) 0.5 mg PO Q6H PRN PRN Reason: Extreme agitation Last Admin: 02/02/17 14:02 Dose: 0.5 mg Lorazepam (Ativan Inj) 0.5 mg IM Q6H PRN PRN Reason: Extreme agitation Multivitamins (Theragran) 1 tab PO DAILY [facility] Last Admin: 02/04/17 08:09 Dose: 1 tab Ondansetron HCl (Zofran Po) 4 mg PO Q6H PRN PRN Reason: Nausea &/or vomiting Last Admin: 01/27/17 13:41 Dose: 4 mg Pantoprazole Sodium (Protonix Tab) 40 mg PO ACB [facility] Last Admin: 02/04/17 07:02 Dose: 40 mg Quetiapine Fumarate (Seroquel) 75 mg PO HS [facility] Last Admin: 02/03/17 20:39 Dose: 75 mg Subjective: Pt seen and chart examined. Nursing reports pt is doing well on the unit. Sleeping well and has a good appetite. No behaviors noted. On face to face the pt states he feels a little better. A little sleepy today. Mood improved. Denies S/I. Tolerating meds. Start Time: 17:15 Stop Time: 17:30 Mental Status Exam Vitals: Last Vital Signs Temp 97.7 F 02/04/17 16:00 Pulse 78 02/04/17 16:00 Resp 18 02/04/17 16:00 BP 136/70 02/04/17 16:00 Pulse Ox 96 02/04/17 16:00 Height: 1.65 m Weight: 82.7 kg - Mental Status Exam Muscle Strength/Tone: Normal Dressing: Casual Grooming: Good Attitude: Cooperative Motor Activity: Normal Eye Contact: Fair Speech: Slowed, Coherent Volume: Soft Rhythm: Appropriate Rhythm Orientation: Oriented to person, Oriented to place, Oriented to time Mood: Depressed Rate of Thoughts: Appropriate Rate Thought Organization: Organized Associations: Intact Computation: Intact Thought Content: Ruminations Perception/Psychotic: Hx psychosis, not current Language: Naming Intact Fund of Knowledge: Appropriate Memory: Grossly Intact Suicidal Ideation: Denies Homicidal Ideation: None Insight: Poor Judgement: Poor Impulse Control: Fair - Laboratory Result Diagrams: 01/31/17 04:36 01/31/17 04:36 Assessment and Plan (1) Major depressive disorder Qualifiers: Major depression recurrence: recurrent Active/Remission status: currently active Major depression episode severity: severe Psychotic features: without psychotic features Qualified Code(s): F33.2 - Major depressive disorder, recurrent severe without psychotic features Current visit: Yes Status: Chronic Continue current care (2) Hypothyroidism Current visit: Yes Status: Chronic (3) Chronic migraine Current visit: Yes Status: Chronic (4) Hypertension Current visit: Yes Status: Chronic (5) Dyslipidemia Current visit: Yes Status: Chronic Hospital Course Summary Disclaimer: The visit summary below is not to be considered part of the above Progress Note. Hospital Course: 01/26/17- admit Agree with admission to [facility] for further psychiatric and treatment. Given patients aggressive suicide attempt with overdose recently. He is a level III under strict supervision. Did evaluate all medical screening performed in the emergency room. Will add a TSH for laboratory completeness, given that patient does have a history of hypothyroidism. Continue to encourage cautious use of Milburn for chronic back pain. Will also add heat packs to use as needed. Continue to monitor blood pressures. He was borderline elevated this morning, however, this may be secondary to his pain. Continue on lisinopril All psychiatric care as per Dr. Worthington Appreciate medical consultation. The hospitalist services will continue to follow patient medically manage existing comorbidities during his stay at [facility]. At time of discharge medical care will return to primary care provider Dr Jorge Bowser 01/27/17 18:21 Continue current care 01/28/17 18:25 Decrease Celexa to 20mg PO daily Increase Cymbalta to 60mg PO daily 01/29/17 Affact appears flat/depressed. He is off suicide watch Blood pressure is well controlled on Lisinopril continues on usual home medications including lipitor, plavix and levothyroxine Overall appears medically stable Psychiatric care as per Dr. Grullon 01/29/17 11:08 D/C Celexa. Increase Seroquel to 75mg at HS. Consider adding Ritalin 01/30/17 10:56 Continue current care 02/01/17 13:46 02/01/17 Overall, Booker is medically stable. He continues to have flat, depressed affect and struggles with energy. He denies any SI, but has morbid thoughts. Continue psychiatric care. Continue to provide safe and supportive environment. Blood pressure remains well controlled on Lisinopril. Continue to monitor. Continues on usual home medications including lipitor, plavix and levothyroxine. Continue to complains of chronic pain in knees and back and requests to have his Milburn dose increased to 10mg. Currently also on Ultram which he states helps. Will increase Mil[place] to 2 tabs po Q6H PRN pain for additional pain control. Recent labs on 01/31 showed new thrombocytopenia with platelets at 119 but otherwise unremarkable. Recheck labs on 02/07/17 to monitor blood counts, electrolytes and renal function. 02/02/17 20:14: Increase the dose of Buspar to 10mg TID. Cont supportive therapy 02/03/17 17:35 Continue current care 02/04/17 17:36 Continue current care
[2017-02-04] MEDS: QUETIAPINE 50 MG TABLET PO SCH (20:31)
[2017-02-04] MEDS: ATORVASTATIN 20 MG TABLET PO SCH (20:32)
[2017-02-05] MEDS: QUETIAPINE 50 MG TABLET PO SCH ×3 (00:50→21:26)
[2017-02-05] MEDS: ATORVASTATIN 20 MG TABLET PO SCH ×3 (00:50→21:26)
[2017-02-05] MEDS: PANTOPRAZOLE 40 MG TABLET PO SCH (06:35)
[2017-02-05] MEDS: LEVOTHYROXINE 125 MCG TABLET PO SCH (06:35)
[2017-02-05] MEDS: BUSPIRONE 10 MG TABLET PO SCH ×3 (09:56→20:37)
[2017-02-05] MEDS: DULOXETINE 60 MG CAPSULE PO SCH (09:57)
[2017-02-05] MEDS: MULTI-VITAMIN PLAIN TABLET PO SCH (10:01)
[2017-02-05] MEDS: LISINOPRIL 20 MG TABLET PO SCH (10:01)
[2017-02-05] MEDS: CLOPIDOGREL 75 MG TABLET PO SCH (10:01)
--- NOTE | 2017-02-05 11:07 | Neuropsych Progress Note ---
[facility] Subjective Date: 02/05/17 - Sujective/Severity of Illness Medications: Acetaminophen/Hydrocodone Bitart ([place] 5/325) 1 - 2 tab PO Q6H PRN PRN Reason: Pain Last Admin: 02/04/17 20:31 Dose: 1 tab Atorvastatin Calcium (Lipitor) 20 mg PO HS [facility] Last Admin: 02/05/17 00:50 Dose: Not Given Buspirone HCl (Buspar) 10 mg PO TID [facility] Last Admin: 02/05/17 09:56 Dose: 10 mg Clopidogrel Bisulfate (Plavix) 75 mg PO DAILY [facility] Last Admin: 02/05/17 10:01 Dose: Not Given Duloxetine HCl (Cymbalta) 60 mg PO DAILY [facility] Last Admin: 02/05/17 09:57 Dose: 60 mg Haloperidol (Haldol) 0.5 mg PO Q6H PRN PRN Reason: Extreme agitation Haloperidol Lactate (Haldol) 0.5 mg IM Q6H PRN PRN Reason: Extreme agitation Levothyroxine Sodium (Synthroid) 125 mcg PO B [facility] Last Admin: 02/05/17 06:35 Dose: 125 mcg Lisinopril (Prinivil) 20 mg PO DAILY [facility] Last Admin: 02/05/17 10:01 Dose: Not Given Lorazepam (Ativan) 0.5 mg PO Q6H PRN PRN Reason: Extreme agitation Last Admin: 02/02/17 14:02 Dose: 0.5 mg Lorazepam (Ativan Inj) 0.5 mg IM Q6H PRN PRN Reason: Extreme agitation Multivitamins (Theragran) 1 tab PO DAILY [facility] Last Admin: 02/05/17 10:01 Dose: Not Given Ondansetron HCl (Zofran Po) 4 mg PO Q6H PRN PRN Reason: Nausea &/or vomiting Last Admin: 01/27/17 13:41 Dose: 4 mg Pantoprazole Sodium (Protonix Tab) 40 mg PO ACB [facility] Last Admin: 02/05/17 06:35 Dose: 40 mg Quetiapine Fumarate (Seroquel) 75 mg PO [facility] Last Admin: 02/05/17 00:50 Dose: Not Given Subjective: Pt seen and chart examined. Nursing reports pt is doing well on the unit. Sleeping well and has a good appetite. No behaviors noted. On face to face the pt states he feels hopeless. States he does not believe he can manage at home and does not see any other options. He states "I just want to ". Denies S/I. Tolerating meds Start Time: 10:15 Stop Time: 10:30 Mental Status Exam Vitals: Last Vital Signs Temp 97.7 F 02/05/17 08:00 Pulse 88 02/05/17 08:00 Resp 16 02/05/17 08:00 BP 138/70 02/05/17 08:00 Pulse Ox 95 02/05/17 08:00 Height: 1.65 m Weight: 82.7 kg - Mental Status Exam Muscle Strength/Tone: Normal Dressing: Casual Grooming: Good Attitude: Cooperative Motor Activity: Retardation Eye Contact: Fair Speech: Slowed, Coherent Volume: Soft Rhythm: Appropriate Rhythm Orientation: Oriented to person, Oriented to place, Oriented to time Mood: Depressed Affect: Sad Rate of Thoughts: Delayed Thought Organization: Organized Associations: Intact Computation: Intact Thought Content: Ruminations Perception/Psychotic: Hx psychosis, not current Language: Naming Intact Fund of Knowledge: Appropriate Memory: Grossly Intact Suicidal Ideation: Intermittent Homicidal Ideation: None Insight: Poor Judgement: Poor Impulse Control: Fair - Laboratory Result Diagrams: 01/31/17 04:36 01/31/17 04:36 Assessment and Plan (1) Major depressive disorder Qualifiers: Major depression recurrence: recurrent Active/Remission status: currently active Major depression episode severity: severe Psychotic features: without psychotic features Qualified Code(s): F33.2 - Major depressive disorder, recurrent severe without psychotic features Current visit: Yes Status: Chronic (2) Hypothyroidism Current visit: Yes Status: Chronic (3) Chronic migraine Current visit: Yes Status: Chronic (4) Hypertension Current visit: Yes Status: Chronic (5) Dyslipidemia Current visit: Yes Status: Chronic Hospital Course Summary Disclaimer: The visit summary below is not to be considered part of the above Progress Note. Hospital Course: 01/26/17- admit Agree with admission to [facility] unit for further psychiatric and treatment. Given patients aggressive suicide attempt with overdose recently. He is a level III under strict supervision. Did evaluate all medical screening performed in the emergency room. Will add a TSH for laboratory completeness, given that patient does have a history of hypothyroidism. Continue to encourage cautious use of [place] for chronic back pain. Will also add heat packs to use as needed. Continue to monitor blood pressures. He was borderline elevated this morning, however, this may be secondary to his pain. Continue on lisinopril All psychiatric care as per Dr. Worthington Appreciate medical consultation. The hospitalist services will continue to follow patient medically manage existing comorbidities during his stay at [facility]. At time of discharge medical care will return to primary care provider Dr Jorge Bowser 01/27/17 18:21 Continue current care 01/28/17 18:25 Decrease Celexa to 20mg PO daily Increase Cymbalta to 60mg PO daily 01/29/17 Affact appears flat/depressed. He is off suicide watch Blood pressure is well controlled on Lisinopril continues on usual home medications including lipitor, plavix and levothyroxine Overall appears medically stable Psychiatric care as per Dr. Grullon 01/29/17 11:08 D/C Celexa. Increase Seroquel to 75mg at HS. Consider adding Ritalin 01/30/17 10:56 Continue current care 02/01/17 13:46 02/01/17 Overall, Booker is medically stable. He continues to have flat, depressed affect and struggles with energy. He denies any SI, but has morbid thoughts. Continue psychiatric care. Continue to provide safe and supportive environment. Blood pressure remains well controlled on Lisinopril. Continue to monitor. Continues on usual home medications including lipitor, plavix and levothyroxine. Continue to complains of chronic pain in knees and back and requests to have his [place] dose increased to 10mg. Currently also on Ultram which he states helps. Will increase [place] to 2 tabs po Q6H PRN pain for additional pain control. Recent labs on 01/31 showed new thrombocytopenia with platelets at 119 but otherwise unremarkable. Recheck labs on 02/07/17 to monitor blood counts, electrolytes and renal function. 02/02/17 20:14: Increase the dose of Buspar to 10mg TID. Cont supportive therapy 02/03/17 17:35 Continue current care 02/04/17 17:36 Continue current care 02/05/17 11:07 Continue current care
[2017-02-05] MEDS: HYDROCODONE/APAP 5mg/325mg TABLET PO PRN ×2 (13:00→20:37)
[2017-02-05] MEDS: LORazepam 0.5 MG TABLET PO PRN (19:17)
[2017-02-05] MEDS: ONDANSETRON ODT 4 MG TABLET PO PRN (20:37)
[2017-02-06] MEDS: CLOPIDOGREL 75 MG TABLET PO SCH (08:04)
[2017-02-06] MEDS: LISINOPRIL 20 MG TABLET PO SCH (08:04)
[2017-02-06] MEDS: MULTI-VITAMIN PLAIN TABLET PO SCH (08:04)
[2017-02-06] MEDS: HYDROCODONE/APAP 5mg/325mg TABLET PO PRN ×2 (08:05→20:29)
[2017-02-06] MEDS: BUSPIRONE 10 MG TABLET PO SCH ×3 (08:05→20:26)
[2017-02-06] MEDS: DULOXETINE 60 MG CAPSULE PO SCH (08:05)
[2017-02-06] MEDS: LEVOTHYROXINE 125 MCG TABLET PO SCH (08:05)
[2017-02-06] MEDS: PANTOPRAZOLE 40 MG TABLET PO SCH (08:06)
[2017-02-06] MEDS ORDERED: REFRESH CLASSIC Eye Drops 0.4ml EACH EYE PRN (08:46)
--- NOTE | 2017-02-06 12:23 | Neuropsych Progress Note ---
[facility] Subjective Date: 02/06/17 - Sujective/Severity of Illness Medications: Acetaminophen/Hydrocodone Bitart ([place] 5/325) 1 - 2 tab PO Q6H PRN PRN Reason: Pain Last Admin: 02/06/17 08:05 Dose: 1 tab Artificial Tears (Refresh Classic) 1 drop EACH EYE PRN PRN Atorvastatin Calcium (Lipitor) 20 mg PO [facility] Last Admin: 02/05/17 21:26 Dose: Not Given Buspirone HCl (Buspar) 10 mg PO TID [facility] Last Admin: 02/06/17 08:05 Dose: 10 mg Clopidogrel Bisulfate (Plavix) 75 mg PO DAILY [facility] Last Admin: 02/06/17 08:04 Dose: 75 mg Duloxetine HCl (Cymbalta) 60 mg PO DAILY [facility] Last Admin: 02/06/17 08:05 Dose: 60 mg Haloperidol (Haldol) 0.5 mg PO Q6H PRN PRN Reason: Extreme agitation Haloperidol Lactate (Haldol) 0.5 mg IM Q6H PRN PRN Reason: Extreme agitation Levothyroxine Sodium (Synthroid) 125 mcg PO ACB [facility] Last Admin: 02/06/17 08:05 Dose: 125 mcg Lisinopril (Prinivil) 20 mg PO DAILY [facility] Last Admin: 02/06/17 08:04 Dose: 20 mg Lorazepam (Ativan) 0.5 mg PO Q6H PRN PRN Reason: Extreme agitation Last Admin: 02/05/17 19:17 Dose: 0.5 mg Lorazepam (Ativan Inj) 0.5 mg IM Q6H PRN PRN Reason: Extreme agitation Multivitamins (Theragran) 1 tab PO DAILY [facility] Last Admin: 02/06/17 08:04 Dose: 1 tab Ondansetron HCl (Zofran Po) 4 mg PO Q6H PRN PRN Reason: Nausea &/or vomiting Last Admin: 02/05/17 20:37 Dose: 4 mg Pantoprazole Sodium (Protonix Tab) 40 mg PO ACB [facility] Last Admin: 02/06/17 08:06 Dose: 40 mg Quetiapine Fumarate (Seroquel) 75 mg PO [facility] Last Admin: 02/05/17 21:26 Dose: Not Given Subjective: Pt seen and chart examined. Nursing reports pt is doing well on the unit. Sleeping well and has a good appetite. No behaviors noted. On face to face the pt states he is doing better. He states his family found him an AL in [place] which he thinks will be better than going home. He feels his mood is improved and he denies any S/i. Tolerating meds Start Time: 10:15 Stop Time: 10:30 Mental Status Exam Vitals: Last Vital Signs Temp 97.4 F 02/06/17 08:00 Pulse 89 02/06/17 08:00 Resp 16 02/06/17 08:00 BP 145/71 H 02/06/17 08:00 Pulse Ox 95 02/06/17 08:00 Height: 1.65 m Weight: 82.7 kg - Mental Status Exam Muscle Strength/Tone: Normal Dressing: Casual Grooming: Good Attitude: Cooperative Motor Activity: Retardation Eye Contact: Fair Speech: Slowed, Coherent Volume: Soft Rhythm: Appropriate Rhythm Orientation: Oriented to person, Oriented to place, Oriented to time Mood: Depressed Rate of Thoughts: Delayed Thought Organization: Organized Associations: Intact Computation: Intact Thought Content: Ruminations Perception/Psychotic: Hx psychosis, not current Language: Naming Intact Fund of Knowledge: Appropriate Memory: Grossly Intact Suicidal Ideation: Intermittent Homicidal Ideation: None Insight: Poor Judgement: Poor Impulse Control: Fair - Laboratory Result Diagrams: 01/31/17 04:36 01/31/17 04:36 Assessment and Plan (1) Major depressive disorder Qualifiers: Major depression recurrence: recurrent Active/Remission status: currently active Major depression episode severity: severe Psychotic features: without psychotic features Qualified Code(s): F33.2 - Major depressive disorder, recurrent severe without psychotic features Current visit: Yes Status: Chronic (2) Hypothyroidism Current visit: Yes Status: Chronic (3) Chronic migraine Current visit: Yes Status: Chronic (4) Hypertension Current visit: Yes Status: Chronic (5) Dyslipidemia Current visit: Yes Status: Chronic Hospital Course Summary Disclaimer: The visit summary below is not to be considered part of the above Progress Note. Hospital Course: 01/26/17- admit Agree with admission to [facility] for further psychiatric and treatment. Given patients aggressive suicide attempt with overdose recently. He is a level III under strict supervision. Did evaluate all medical screening performed in the emergency room. Will add a TSH for laboratory completeness, given that patient does have a history of hypothyroidism. Continue to encourage cautious use of [place] for chronic back pain. Will also add heat packs to use as needed. Continue to monitor blood pressures. He was borderline elevated this morning, however, this may be secondary to his pain. Continue on lisinopril All psychiatric care as per Dr. Worthington Appreciate medical consultation. The hospitalist services will continue to follow patient medically manage existing comorbidities during his stay at [facility]. At time of discharge medical care will return to primary care provider Dr Jorge Bowser 01/27/17 18:21 Continue current care 01/28/17 18:25 Decrease Celexa to 20mg PO daily Increase Cymbalta to 60mg PO daily 01/29/17 Affact appears flat/depressed. He is off suicide watch Blood pressure is well controlled on Lisinopril continues on usual home medications including lipitor, plavix and levothyroxine Overall appears medically stable Psychiatric care as per Dr. Grullon 01/29/17 11:08 D/C Celexa. Increase Seroquel to 75mg at HS. Consider adding Ritalin 01/30/17 10:56 Continue current care 02/01/17 13:46 02/01/17 Overall, Booker is medically stable. He continues to have flat, depressed affect and struggles with energy. He denies any SI, but has morbid thoughts. Continue psychiatric care. Continue to provide safe and supportive environment. Blood pressure remains well controlled on Lisinopril. Continue to monitor. Continues on usual home medications including lipitor, plavix and levothyroxine. Continue to complains of chronic pain in knees and back and requests to have his [place] dose increased to 10mg. Currently also on Ultram which he states helps. Will increase [place] to 2 tabs po Q6H PRN pain for additional pain control. Recent labs on 01/31 showed new thrombocytopenia with platelets at 119 but otherwise unremarkable. Recheck labs on 02/07/17 to monitor blood counts, electrolytes and renal function. 02/02/17 20:14: Increase the dose of Buspar to 10mg TID. Cont supportive therapy 02/03/17 17:35 Continue current care 02/04/17 17:36 Continue current care 02/05/17 11:07 Continue current care 02/06/17 12:23 Continue current care
[2017-02-06] MEDS: LORazepam 0.5 MG TABLET PO PRN (17:16)
[2017-02-06] MEDS: ATORVASTATIN 20 MG TABLET PO SCH ×2 (20:26→23:04)
[2017-02-06] MEDS: QUETIAPINE 50 MG TABLET PO SCH ×2 (20:26→23:04)
[2017-02-07] MEDS: LISINOPRIL 20 MG TABLET PO SCH (08:12)
[2017-02-07] MEDS: LEVOTHYROXINE 125 MCG TABLET PO SCH (08:12)
[2017-02-07] MEDS: PANTOPRAZOLE 40 MG TABLET PO SCH (08:12)
[2017-02-07] MEDS: MULTI-VITAMIN PLAIN TABLET PO SCH (08:13)
[2017-02-07] MEDS: DULOXETINE 60 MG CAPSULE PO SCH (08:13)
[2017-02-07] MEDS: CLOPIDOGREL 75 MG TABLET PO SCH (08:13)
[2017-02-07] MEDS: BUSPIRONE 10 MG TABLET PO SCH ×3 (08:13→20:25)
[2017-02-07] MEDS: HYDROCODONE/APAP 5mg/325mg TABLET PO PRN ×3 (08:16→20:30)
[2017-02-07] MEDS: ATORVASTATIN 20 MG TABLET PO SCH ×2 (20:25→22:07)
[2017-02-07] MEDS: QUETIAPINE 50 MG TABLET PO SCH ×2 (20:25→22:07)
--- NOTE | 2017-02-07 22:45 | Neuropsych Progress Note ---
[facility] Subjective Date: 02/07/17 - Sujective/Severity of Illness Medications: Acetaminophen/Hydrocodone Bitart ([place] 5/325) 1 - 2 tab PO Q6H PRN PRN Reason: Pain Last Admin: 02/07/17 20:30 Dose: 2 tab Artificial Tears (Refresh Classic) 1 drop EACH EYE PRN PRN Atorvastatin Calcium (Lipitor) 20 mg PO [facility] Last Admin: 02/07/17 22:07 Dose: Not Given Buspirone HCl (Buspar) 10 mg PO TID [facility] Last Admin: 02/07/17 20:25 Dose: 10 mg Clopidogrel Bisulfate (Plavix) 75 mg PO DAILY [facility] Last Admin: 02/07/17 08:13 Dose: 75 mg Duloxetine HCl (Cymbalta) 60 mg PO DAILY [facility] Last Admin: 02/07/17 08:13 Dose: 60 mg Haloperidol (Haldol) 0.5 mg PO Q6H PRN PRN Reason: Extreme agitation Haloperidol Lactate (Haldol) 0.5 mg IM Q6H PRN PRN Reason: Extreme agitation Levothyroxine Sodium (Synthroid) 125 mcg PO ACB [facility] Last Admin: 02/07/17 08:12 Dose: 125 mcg Lisinopril (Prinivil) 20 mg PO DAILY [facility] Last Admin: 02/07/17 08:12 Dose: 20 mg Lorazepam (Ativan) 0.5 mg PO Q6H PRN PRN Reason: Extreme agitation Last Admin: 02/06/17 17:16 Dose: 0.5 mg Lorazepam (Ativan Inj) 0.5 mg IM Q6H PRN PRN Reason: Extreme agitation Multivitamins (Theragran) 1 tab PO DAILY [facility] Last Admin: 02/07/17 08:13 Dose: 1 tab Ondansetron HCl (Zofran Po) 4 mg PO Q6H PRN PRN Reason: Nausea &/or vomiting Last Admin: 02/05/17 20:37 Dose: 4 mg Pantoprazole Sodium (Protonix Tab) 40 mg PO ACB [facility] Last Admin: 02/07/17 08:12 Dose: 40 mg Quetiapine Fumarate (Seroquel) 75 mg PO [facility] Last Admin: 02/07/17 22:07 Dose: Not Given Subjective: Patient seen and chart examined. Nursing reports patient appears to have brighter affect. He reports improvement of his mood and feels ready for possible discharge. Patient states that he plans to resume his exercise routine when he is discharged. He denies any morbid thoughts, suicide ideation, intent or plans to hurt himself or some other person . Family is working on placement . Tolerating meds. Discussed his use of Narcotics and possible pain management when he is discharged. Start Time: 18:30 Stop Time: 18:45 Mental Status Exam Vitals: Last Vital Signs Temp 97.6 F 02/07/17 19:26 Pulse 75 02/07/17 19:26 Resp 20 02/07/17 19:26 BP 125/67 02/07/17 19:26 Pulse Ox 95 02/07/17 19:26 Height: 1.65 m Weight: 82.7 kg - Mental Status Exam Muscle Strength/Tone: Normal Dressing: Casual Grooming: Good Attitude: Cooperative Motor Activity: Retardation Eye Contact: Good Speech: Slowed, Coherent Volume: Soft Rhythm: Appropriate Rhythm Orientation: Oriented to person, Oriented to place, Oriented to time Mood: Other ("better") Affect: Bright Rate of Thoughts: Delayed Thought Organization: Organized Associations: Intact Computation: Intact Thought Content: Ruminations Perception/Psychotic: Hx psychosis, not current Language: Naming Intact Fund of Knowledge: Appropriate Memory: Grossly Intact Suicidal Ideation: None Homicidal Ideation: None Insight: Poor Judgement: Poor Impulse Control: Fair - Laboratory Result Diagrams: 02/07/17 04:33 02/07/17 04:33 Laboratory Results - last 24 hr 02/07/17 02/07/17 04:33 04:33 WBC 5.4 RBC 3.98 L Hgb 12.9 L Hct 38.6 L MCV 97.0 MCH 32.4 MCHC 33.4 RDW Std Deviation 42.3 Plt Count 86 L MPV 10.5 Immature Gran % (Auto) 0.7 H Neut % (Auto) 54.9 Lymph % (Auto) 23.9 [place] % (Auto) 10.9 H Eos % (Auto) 9.4 H Baso % (Auto) 0.2 Neut # 3.0 Lymph # 1.3 [place] # 0.6 Eos # 0.5 Baso # 0.0 Abs Immat Gran (auto) 0.04 H Turbidity < 20 Sodium 136 Potassium 4.3 Chloride 106 Carbon Dioxide 26 Anion Gap 4 L BUN 24.0 H Creatinine 1.0 GFR Calculation 72 BUN/Creatinine Ratio 24 Glucose 88 Calculated Osmolality 265 Calcium 8.5 Icterus Index < 2 Specimen Hemolysis < 15 Assessment and Plan (1) Major depressive disorder Qualifiers: Major depression recurrence: recurrent Active/Remission status: currently active Major depression episode severity: severe Psychotic features: without psychotic features Qualified Code(s): F33.2 - Major depressive disorder, recurrent severe without psychotic features Current visit: Yes Status: Chronic (2) Hypothyroidism Current visit: Yes Status: Chronic (3) Chronic migraine Current visit: Yes Status: Chronic (4) Hypertension Current visit: Yes Status: Chronic (5) Dyslipidemia Current visit: Yes Status: Chronic Hospital Course Summary Disclaimer: The visit summary below is not to be considered part of the above Progress Note. Hospital Course: 01/26/17- admit Agree with admission to [facility] for further psychiatric and treatment. Given patients aggressive suicide attempt with overdose recently. He is a level III under strict supervision. Did evaluate all medical screening performed in the emergency room. Will add a TSH for laboratory completeness, given that patient does have a history of hypothyroidism. Continue to encourage cautious use of [place] for chronic back pain. Will also add heat packs to use as needed. Continue to monitor blood pressures. He was borderline elevated this morning, however, this may be secondary to his pain. Continue on lisinopril All psychiatric care as per Dr. Worthington Appreciate medical consultation. The hospitalist services will continue to follow patient medically manage existing comorbidities during his stay at [facility]. At time of discharge medical care will return to primary care provider Dr Jorge Bowser 01/27/17 18:21 Continue current care 01/28/17 18:25 Decrease Celexa to 20mg PO daily Increase Cymbalta to 60mg PO daily 01/29/17 Affact appears flat/depressed. He is off suicide watch Blood pressure is well controlled on Lisinopril continues on usual home medications including lipitor, plavix and levothyroxine Overall appears medically stable Psychiatric care as per Dr. Grullon 01/29/17 11:08 D/C Celexa. Increase Seroquel to 75mg at HS. Consider adding Ritalin 01/30/17 10:56 Continue current care 02/01/17 13:46 02/01/17 Overall, Booker is medically stable. He continues to have flat, depressed affect and struggles with energy. He denies any SI, but has morbid thoughts. Continue psychiatric care. Continue to provide safe and supportive environment. Blood pressure remains well controlled on Lisinopril. Continue to monitor. Continues on usual home medications including lipitor, plavix and levothyroxine. Continue to complains of chronic pain in knees and back and requests to have his [place] dose increased to 10mg. Currently also on Ultram which he states helps. Will increase [place] to 2 tabs po Q6H PRN pain for additional pain control. Recent labs on 01/31 showed new thrombocytopenia with platelets at 119 but otherwise unremarkable. Recheck labs on 02/07/17 to monitor blood counts, electrolytes and renal function. 02/02/17 20:14: Increase the dose of Buspar to 10mg TID. Cont supportive therapy 02/03/17 17:35 Continue current care 02/04/17 17:36 Continue current care 02/05/17 11:07 Continue current care 02/06/17 12:23 Continue current care 02/07/17 22:47 Cont medication. Family is working on placement. SW to arrange OP follow with a psychiatrist, therapist and home health
[2017-02-08] MEDS: PANTOPRAZOLE 40 MG TABLET PO SCH (08:13)
[2017-02-08] MEDS: CLOPIDOGREL 75 MG TABLET PO SCH (08:14)
[2017-02-08] MEDS: LEVOTHYROXINE 125 MCG TABLET PO SCH (08:14)
[2017-02-08] MEDS: DULOXETINE 60 MG CAPSULE PO SCH (08:14)
[2017-02-08] MEDS: BUSPIRONE 10 MG TABLET PO SCH ×3 (08:14→20:33)
[2017-02-08] MEDS: LISINOPRIL 20 MG TABLET PO SCH (08:15)
[2017-02-08] MEDS: MULTI-VITAMIN PLAIN TABLET PO SCH (08:15)
[2017-02-08] MEDS: ACETAMINOPHEN 325 MG TABLET PO PRN (10:54)
--- NOTE | 2017-02-08 14:25 | Progress Note ---
Subjective: Booker was seen while in the day room before lunchtime. He has been complaining of right scapular pain, and the pain limits his ability to take a deep breath. He states that he has a cough, but it is nonproductive and it hasn't been worse than typical. He denies any fevers or chills. He denies any body aches, other than the scapula. He denies chest pain. He denies feeling short of breath at rest. He denies any abdominal pain or GI complaints. Objective Vital signs: Temperature 96.8 F 02/08/17 08:00 Pulse Rate 79 02/08/17 08:00 Respiratory Rate 18 02/08/17 08:00 Blood Pressure 132/67 02/08/17 08:00 Pulse Oximetry 99 02/08/17 08:00 Oxygen Delivery Method Room Air Weight: 82.7 kg - Constitutional Present: no acute distress, well nourished, well developed - Routine HEENT Exam ENT: Present: mucous membranes moist, oropharynx clear - Routine Respiratory Exam Comments: Slightly coarse, equal bilaterally - Routine Cardiovascular Exam Present: S1, S2 - Routine Abdominal Exam Present: soft, non distended, non tender. Absent: normoactive bowel sounds ( hyperactive bowel sounds) - Routine Extremities Exam Present: no edema, pulses intact - Routine Back/Spine/Pelvis Exam Back image: 1 - Tenderness - Routine Musculoskeletal Exam Musculoskeletal: Present: moving extremities well - Routine Skin Exam Present: intact, dry, warm - Routine Neurological Exam Present: alert, oriented X3 - Routine Psychiatric Exam Present: normal affect, normal thought process Results - Labs CBC & Chem 7: 02/07/17 04:33 02/07/17 04:33 Assessment and Plan (1) Major depressive disorder Current visit: Yes Status: Chronic (2) Hypothyroidism Current visit: Yes Status: Chronic (3) Chronic migraine Current visit: Yes Status: Chronic (4) Hypertension Current visit: Yes Status: Chronic (5) Dyslipidemia Current visit: Yes Status: Chronic (6) Suicide attempt Problem details: Alprazolam overdose Current visit: Yes Status: Acute (7) Chronic back pain Current visit: Yes Status: Chronic (8) Normocytic anemia Current visit: Yes Status: Acute (9) Thrombocytopenia Current visit: Yes Status: Acute Assessment and Plan: Tenderness over right medial scapular border -Discussed with nursing. They will try a heating pad, aspercreme. -Continue Tylenol, [place] as needed -Chest x-ray done on 01/25/17 was unremarkable -EKG on 01/25/17 showed left bundle branch block with occasional PVC, and repeat on 01/31/17 again showed left bundle branch block. -Consider repeating labs, chest x-ray. If the patient develops fever, productive cough, or increased dyspnea. Labs were done on 02/07/17, including CBC and BMP. -Thrombocytopenia and normocytic anemia is gradually worsening. Will repeat CBC tomorrow morning. -in the meantime, continue Plavix -BMP is stable Psychiatric -Continue medication, family working on placement Sepsis Assessment - Evaluation Sepsis screening result: No Definite Risk Hospital Course Summary Disclaimer: The visit summary below is not to be considered part of the above Progress Note. Hospital Course: 01/26/17- admit Agree with admission to [facility] for further psychiatric and treatment. Given patients aggressive suicide attempt with overdose recently. He is a level III under strict supervision. Did evaluate all medical screening performed in the emergency room. Will add a TSH for laboratory completeness, given that patient does have a history of hypothyroidism. Continue to encourage cautious use of [place] for chronic back pain. Will also add heat packs to use as needed. Continue to monitor blood pressures. He was borderline elevated this morning, however, this may be secondary to his pain. Continue on lisinopril All psychiatric care as per Dr. Worthington Appreciate medical consultation. The hospitalist services will continue to follow patient medically manage existing comorbidities during his stay at [facility]. At time of discharge medical care will return to primary care provider Dr Jorge Bowser 01/27/17 18:21 Continue current care 01/28/17 18:25 Decrease Celexa to 20mg PO daily Increase Cymbalta to 60mg PO daily 01/29/17 Affact appears flat/depressed. He is off suicide watch Blood pressure is well controlled on Lisinopril continues on usual home medications including lipitor, plavix and levothyroxine Overall appears medically stable Psychiatric care as per Dr. Grullon 01/29/17 11:08 D/C Celexa. Increase Seroquel to 75mg at HS. Consider adding Ritalin 01/30/17 10:56 Continue current care 02/01/17 13:46 02/01/17 Overall, Booker is medically stable. He continues to have flat, depressed affect and struggles with energy. He denies any SI, but has morbid thoughts. Continue psychiatric care. Continue to provide safe and supportive environment. Blood pressure remains well controlled on Lisinopril. Continue to monitor. Continues on usual home medications including lipitor, plavix and levothyroxine. Continue to complains of chronic pain in knees and back and requests to have his [place] dose increased to 10mg. Currently also on Ultram which he states helps. Will increase [place] to 2 tabs po Q6H PRN pain for additional pain control. Recent labs on 01/31 showed new thrombocytopenia with platelets at 119 but otherwise unremarkable. Recheck labs on 02/07/17 to monitor blood counts, electrolytes and renal function. 02/02/17 20:14: Increase the dose of Buspar to 10mg TID. Cont supportive therapy 02/03/17 17:35 Continue current care 02/04/17 17:36 Continue current care 02/05/17 11:07 Continue current care 02/06/17 12:23 Continue current care 02/07/17 22:47 Cont medication. Family is working on placement. SW to arrange OP follow with a psychiatrist, therapist and home health 02/08/17 14:37 Tenderness over right medial scapular border -Discussed with nursing. They will try a heating pad, aspercreme. -Continue Tylenol, [place] as needed -Chest x-ray done on 01/25/17 was unremarkable -EKG on 01/25/17 showed left bundle branch block with occasional PVC, and repeat on 01/31/17 again showed left bundle branch block. -Consider repeating labs, chest x-ray. If the patient develops fever, productive cough, or increased dyspnea. Labs were done on 02/07/17, including CBC and BMP. -Thrombocytopenia and normocytic anemia is gradually worsening. Will repeat CBC tomorrow morning. -in the meantime, continue Plavix -BMP is stable Psychiatric -Continue medication, family working on placement
[2017-02-08] MEDS: HYDROCODONE/APAP 5mg/325mg TABLET PO PRN ×2 (15:21→21:19)
[2017-02-08] MEDS: LORazepam 0.5 MG TABLET PO PRN (16:47)
[2017-02-08] MEDS: QUETIAPINE 50 MG TABLET PO SCH ×2 (20:32→23:13)
[2017-02-08] MEDS: ATORVASTATIN 20 MG TABLET PO SCH ×2 (20:32→23:13)
--- NOTE | 2017-02-08 21:07 | Neuropsych Progress Note ---
[facility] Subjective Date: 02/08/17 - Sujective/Severity of Illness Medications: Acetaminophen (Tylenol) 325 - 650 mg PO Q5H PRN PRN Reason: Discomfort Last Admin: 02/08/17 10:54 Dose: 650 mg Acetaminophen/Hydrocodone Bitart ([place] 5/325) 1 - 2 tab PO Q6H PRN PRN Reason: Pain Last Admin: 02/08/17 15:21 Dose: 1 tab Artificial Tears (Refresh Classic) 1 drop EACH EYE PRN PRN Atorvastatin Calcium (Lipitor) 20 mg PO HS [facility] Last Admin: 02/08/17 20:32 Dose: 20 mg Buspirone HCl (Buspar) 10 mg PO TID [facility] Last Admin: 02/08/17 20:33 Dose: 10 mg Clopidogrel Bisulfate (Plavix) 75 mg PO DAILY [facility] Last Admin: 02/08/17 08:14 Dose: 75 mg Duloxetine HCl (Cymbalta) 60 mg PO DAILY [facility] Last Admin: 02/08/17 08:14 Dose: 60 mg Haloperidol (Haldol) 0.5 mg PO Q6H PRN PRN Reason: Extreme agitation Haloperidol Lactate (Haldol) 0.5 mg IM Q6H PRN PRN Reason: Extreme agitation Levothyroxine Sodium (Synthroid) 125 mcg PO ACB [facility] Last Admin: 02/08/17 08:14 Dose: 125 mcg Lisinopril (Prinivil) 20 mg PO DAILY [facility] Last Admin: 02/08/17 08:15 Dose: 20 mg Lorazepam (Ativan) 0.5 mg PO Q6H PRN PRN Reason: Extreme agitation Last Admin: 02/08/17 16:47 Dose: 0.5 mg Lorazepam (Ativan Inj) 0.5 mg IM Q6H PRN PRN Reason: Extreme agitation Multivitamins (Theragran) 1 tab PO DAILY [facility] Last Admin: 02/08/17 08:15 Dose: 1 tab Ondansetron HCl (Zofran Po) 4 mg PO Q6H PRN PRN Reason: Nausea &/or vomiting Last Admin: 02/05/17 20:37 Dose: 4 mg Pantoprazole Sodium (Protonix Tab) 40 mg PO ACB [facility] Last Admin: 02/08/17 08:13 Dose: 40 mg Quetiapine Fumarate (Seroquel) 75 mg PO HS [facility] Last Admin: 02/08/17 20:32 Dose: 75 mg Subjective: Patient seen and chart examined. Nursing reports that patient continued to have brighter affect. He appears to be improving - he sleeps well at night and his appetite is good. He states that he had knee pain earlier today and was seen by the medical team. It was reiterated to patient that narcotic could be worsening his depression and he plans to follow up with pain management physician upon discharge. He denies any morbid thoughts, suicide ideation, intent or plans to hurt himself or some other person . Family is working on placement in independent living. Tolerating meds. Start Time: 16:30 Stop Time: 16:45 Mental Status Exam Vitals: Last Vital Signs Temp 98.8 F 02/08/17 16:00 Pulse 85 02/08/17 16:00 Resp 16 02/08/17 16:00 BP 144/72 H 02/08/17 16:00 Pulse Ox 94 02/08/17 16:00 Height: 1.65 m Weight: 82.7 kg - Mental Status Exam Muscle Strength/Tone: Normal Dressing: Casual Grooming: Good Attitude: Cooperative Motor Activity: Retardation Eye Contact: Good Speech: Slowed, Coherent Volume: Soft Rhythm: Appropriate Rhythm Orientation: Oriented to person, Oriented to place, Oriented to time Mood: Other ("better") Rate of Thoughts: Delayed Thought Organization: Organized Associations: Intact Computation: Intact Thought Content: Ruminations Perception/Psychotic: Hx psychosis, not current Language: Naming Intact Fund of Knowledge: Appropriate Memory: Grossly Intact Suicidal Ideation: None Homicidal Ideation: None Insight: Good Judgement: Fair, Poor Impulse Control: Fair - Laboratory Result Diagrams: 02/07/17 04:33 02/07/17 04:33 Assessment and Plan (1) Major depressive disorder Qualifiers: Major depression recurrence: recurrent Active/Remission status: currently active Major depression episode severity: severe Psychotic features: without psychotic features Qualified Code(s): F33.2 - Major depressive disorder, recurrent severe without psychotic features Current visit: Yes Status: Chronic (2) Hypothyroidism Current visit: Yes Status: Chronic (3) Chronic migraine Current visit: Yes Status: Chronic (4) Hypertension Current visit: Yes Status: Chronic (5) Dyslipidemia Current visit: Yes Status: Chronic Hospital Course Summary Disclaimer: The visit summary below is not to be considered part of the above Progress Note. Hospital Course: 01/26/17- admit Agree with admission to [facility] for further psychiatric and treatment. Given patients aggressive suicide attempt with overdose recently. He is a level III under strict supervision. Did evaluate all medical screening performed in the emergency room. Will add a TSH for laboratory completeness, given that patient does have a history of hypothyroidism. Continue to encourage cautious use of [place] for chronic back pain. Will also add heat packs to use as needed. Continue to monitor blood pressures. He was borderline elevated this morning, however, this may be secondary to his pain. Continue on lisinopril All psychiatric care as per Dr. Worthington Appreciate medical consultation. The hospitalist services will continue to follow patient medically manage existing comorbidities during his stay at [facility]. At time of discharge medical care will return to primary care provider Dr Jorge Bowser 01/27/17 18:21 Continue current care 01/28/17 18:25 Decrease Celexa to 20mg PO daily Increase Cymbalta to 60mg PO daily 01/29/17 Affact appears flat/depressed. He is off suicide watch Blood pressure is well controlled on Lisinopril continues on usual home medications including lipitor, plavix and levothyroxine Overall appears medically stable Psychiatric care as per Dr. Grullon 01/29/17 11:08 D/C Celexa. Increase Seroquel to 75mg at HS. Consider adding Ritalin 01/30/17 10:56 Continue current care 02/01/17 13:46 02/01/17 Overall, Booker is medically stable. He continues to have flat, depressed affect and struggles with energy. He denies any SI, but has morbid thoughts. Continue psychiatric care. Continue to provide safe and supportive environment. Blood pressure remains well controlled on Lisinopril. Continue to monitor. Continues on usual home medications including lipitor, plavix and levothyroxine. Continue to complains of chronic pain in knees and back and requests to have his [place] dose increased to 10mg. Currently also on Ultram which he states helps. Will increase [place] to 2 tabs po Q6H PRN pain for additional pain control. Recent labs on 01/31 showed new thrombocytopenia with platelets at 119 but otherwise unremarkable. Recheck labs on 02/07/17 to monitor blood counts, electrolytes and renal function. 02/02/17 20:14: Increase the dose of Buspar to 10mg TID. Cont supportive therapy 02/03/17 17:35 Continue current care 02/04/17 17:36 Continue current care 02/05/17 11:07 Continue current care 02/06/17 12:23 Continue current care 02/07/17 22:47 Cont medication. Family is working on placement. SW to arrange OP follow with a psychiatrist, therapist and home health 02/08/17 14:37 Tenderness over right medial scapular border -Discussed with nursing. They will try a heating pad, aspercreme. -Continue Tylenol, [place] as needed -Chest x-ray done on 01/25/17 was unremarkable -EKG on 01/25/17 showed left bundle branch block with occasional PVC, and repeat on 01/31/17 again showed left bundle branch block. -Consider repeating labs, chest x-ray. If the patient develops fever, productive cough, or increased dyspnea. Labs were done on 02/07/17, including CBC and BMP. -Thrombocytopenia and normocytic anemia is gradually worsening. Will repeat CBC tomorrow morning. -in the meantime, continue Plavix -BMP is stable Psychiatric -Continue medication, family working on placement 02/08/17 21:08 Cont. current management. Possible discharge on if family finds placement
[2017-02-09] MEDS: LEVOTHYROXINE 125 MCG TABLET PO SCH (06:28)
[2017-02-09] MEDS: PANTOPRAZOLE 40 MG TABLET PO SCH (06:28)
[2017-02-09] MEDS: ACETAMINOPHEN 325 MG TABLET PO PRN (06:29)
[2017-02-09] MEDS: BUSPIRONE 10 MG TABLET PO SCH ×3 (08:25→20:35)
[2017-02-09] MEDS: MULTI-VITAMIN PLAIN TABLET PO SCH (08:25)
[2017-02-09] MEDS: CLOPIDOGREL 75 MG TABLET PO SCH (08:25)
[2017-02-09] MEDS: DULOXETINE 60 MG CAPSULE PO SCH (08:25)
[2017-02-09] MEDS: LISINOPRIL 20 MG TABLET PO SCH (08:25)
[2017-02-09] MEDS: ATORVASTATIN 20 MG TABLET PO SCH (20:35)
[2017-02-09] MEDS: QUETIAPINE 50 MG TABLET PO SCH (20:35)
[2017-02-09] MEDS: HYDROCODONE/APAP 5mg/325mg TABLET PO PRN (20:36)
--- NOTE | 2017-02-09 23:47 | Neuropsych Progress Note ---
[facility] Subjective Date: 02/09/17 - Sujective/Severity of Illness Medications: Acetaminophen (Tylenol) 325 - 650 mg PO Q5H PRN PRN Reason: Discomfort Last Admin: 02/09/17 06:29 Dose: 650 mg Acetaminophen/Hydrocodone Bitart ([place] 5/325) 1 - 2 tab PO Q6H PRN PRN Reason: Pain Last Admin: 02/09/17 20:36 Dose: 2 tab Artificial Tears (Refresh Classic) 1 drop EACH EYE PRN PRN Atorvastatin Calcium (Lipitor) 20 mg PO HS [facility] Last Admin: 02/09/17 20:35 Dose: 20 mg Buspirone HCl (Buspar) 10 mg PO TID [facility] Last Admin: 02/09/17 20:35 Dose: 10 mg Clopidogrel Bisulfate (Plavix) 75 mg PO DAILY [facility] Last Admin: 02/09/17 08:25 Dose: 75 mg Duloxetine HCl (Cymbalta) 60 mg PO DAILY [facility] Last Admin: 02/09/17 08:25 Dose: 60 mg Haloperidol (Haldol) 0.5 mg PO Q6H PRN PRN Reason: Extreme agitation Haloperidol Lactate (Haldol) 0.5 mg IM Q6H PRN PRN Reason: Extreme agitation Levothyroxine Sodium (Synthroid) 125 mcg PO ACB [facility] Last Admin: 02/09/17 06:28 Dose: 125 mcg Lisinopril (Prinivil) 20 mg PO DAILY [facility] Last Admin: 02/09/17 08:25 Dose: 20 mg Lorazepam (Ativan) 0.5 mg PO Q6H PRN PRN Reason: Extreme agitation Last Admin: 02/08/17 16:47 Dose: 0.5 mg Lorazepam (Ativan Inj) 0.5 mg IM Q6H PRN PRN Reason: Extreme agitation Multivitamins (Theragran) 1 tab PO DAILY [facility] Last Admin: 02/09/17 08:25 Dose: 1 tab Ondansetron HCl (Zofran Po) 4 mg PO Q6H PRN PRN Reason: Nausea &/or vomiting Last Admin: 02/05/17 20:37 Dose: 4 mg Pantoprazole Sodium (Protonix Tab) 40 mg PO ACB [facility] Last Admin: 02/09/17 06:28 Dose: 40 mg Quetiapine Fumarate (Seroquel) 75 mg PO HS [facility] Last Admin: 02/09/17 20:35 Dose: 75 mg Subjective: Patient seen and chart examined. Nursing reports that patient continued to have relatively less restricted affect. Patient reports that his daughter is waiting on a response from [facility]. He continues to be improve- he sleeps well at night and his appetite is good. He denies any morbid thoughts, suicide ideation, intent or plans to hurt himself or some other person . Family is working on placement in independent living. Tolerating meds. Patient has been able to work through crisis plan Start Time: 18:00 Stop Time: 18:15 Mental Status Exam Vitals: Last Vital Signs Temp 98.2 F 02/09/17 21:22 Pulse 86 02/09/17 21:22 Resp 20 02/09/17 21:22 BP 126/67 02/09/17 21:22 Pulse Ox 96 02/09/17 21:22 Height: 1.65 m Weight: 82 kg - Mental Status Exam Muscle Strength/Tone: Normal Dressing: Casual Grooming: Good Attitude: Cooperative Motor Activity: Retardation Eye Contact: Good Speech: Slowed, Coherent Volume: Soft Rhythm: Appropriate Rhythm Orientation: Oriented to person, Oriented to place, Oriented to time Mood: Other ("good") Rate of Thoughts: Delayed Thought Organization: Organized Associations: Intact Computation: Intact Thought Content: Normal Perception/Psychotic: Hx psychosis, not current Language: Naming Intact Fund of Knowledge: Appropriate Memory: Grossly Intact Suicidal Ideation: None Homicidal Ideation: None Insight: Good Judgement: Fair Impulse Control: Fair - Laboratory Result Diagrams: 02/09/17 13:04 02/07/17 04:33 Laboratory Results - last 24 hr 02/09/17 13:04 WBC 5.2 RBC 4.33 L Hgb 14.0 Hct 41.6 MCV 96.1 MCH 32.3 MCHC 33.7 RDW Std Deviation 41.9 Plt Count 101 L MPV 10.3 Immature Gran % (Auto) 0.6 H Neut % (Auto) 62.3 Lymph % (Auto) 16.9 L [place] % (Auto) 11.9 H Eos % (Auto) 7.9 H Baso % (Auto) 0.4 Neut # 3.3 Lymph # 0.9 L [place] # 0.6 Eos # 0.4 Baso # 0.0 Abs Immat Gran (auto) 0.03 Assessment and Plan (1) Major depressive disorder Qualifiers: Major depression recurrence: recurrent Active/Remission status: currently active Major depression episode severity: severe Psychotic features: without psychotic features Qualified Code(s): F33.2 - Major depressive disorder, recurrent severe without psychotic features Current visit: Yes Status: Chronic (2) Hypothyroidism Current visit: Yes Status: Chronic (3) Chronic migraine Current visit: Yes Status: Chronic (4) Hypertension Current visit: Yes Status: Chronic (5) Dyslipidemia Current visit: Yes Status: Chronic Hospital Course Summary Disclaimer: The visit summary below is not to be considered part of the above Progress Note. Hospital Course: 01/26/17- admit Agree with admission to [facility] for further psychiatric and treatment. Given patients aggressive suicide attempt with overdose recently. He is a level III under strict supervision. Did evaluate all medical screening performed in the emergency room. Will add a TSH for laboratory completeness, given that patient does have a history of hypothyroidism. Continue to encourage cautious use of [place] for chronic back pain. Will also add heat packs to use as needed. Continue to monitor blood pressures. He was borderline elevated this morning, however, this may be secondary to his pain. Continue on lisinopril All psychiatric care as per Dr. Worthington Appreciate medical consultation. The hospitalist services will continue to follow patient medically manage existing comorbidities during his stay at [facility]. At time of discharge medical care will return to primary care provider Dr Jorge Bowser 01/27/17 18:21 Continue current care 01/28/17 18:25 Decrease Celexa to 20mg PO daily Increase Cymbalta to 60mg PO daily 01/29/17 Affact appears flat/depressed. He is off suicide watch Blood pressure is well controlled on Lisinopril continues on usual home medications including lipitor, plavix and levothyroxine Overall appears medically stable Psychiatric care as per Dr. Grullon 01/29/17 11:08 D/C Celexa. Increase Seroquel to 75mg at HS. Consider adding Ritalin 01/30/17 10:56 Continue current care 02/01/17 13:46 02/01/17 Overall, Booker is medically stable. He continues to have flat, depressed affect and struggles with energy. He denies any SI, but has morbid thoughts. Continue psychiatric care. Continue to provide safe and supportive environment. Blood pressure remains well controlled on Lisinopril. Continue to monitor. Continues on usual home medications including lipitor, plavix and levothyroxine. Continue to complains of chronic pain in knees and back and requests to have his [place] dose increased to 10mg. Currently also on Ultram which he states helps. Will increase [place] to 2 tabs po Q6H PRN pain for additional pain control. Recent labs on 01/31 showed new thrombocytopenia with platelets at 119 but otherwise unremarkable. Recheck labs on 02/07/17 to monitor blood counts, electrolytes and renal function. 02/02/17 20:14: Increase the dose of Buspar to 10mg TID. Cont supportive therapy 02/03/17 17:35 Continue current care 02/04/17 17:36 Continue current care 02/05/17 11:07 Continue current care 02/06/17 12:23 Continue current care 02/07/17 22:47 Cont medication. Family is working on placement. SW to arrange OP follow with a psychiatrist, therapist and home health 02/08/17 14:37 Tenderness over right medial scapular border -Discussed with nursing. They will try a heating pad, aspercreme. -Continue Tylenol, [place] as needed -Chest x-ray done on 01/25/17 was unremarkable -EKG on 01/25/17 showed left bundle branch block with occasional PVC, and repeat on 01/31/17 again showed left bundle branch block. -Consider repeating labs, chest x-ray. If the patient develops fever, productive cough, or increased dyspnea. Labs were done on 02/07/17, including CBC and BMP. -Thrombocytopenia and normocytic anemia is gradually worsening. Will repeat CBC tomorrow morning. -in the meantime, continue Plavix -BMP is stable Psychiatric -Continue medication, family working on placement 02/08/17 21:08 Cont. current management. Possible discharge on if family finds placement 02/09/17 23:48 Cont current management . Possible discharge Tuesday or early next week. He will require psychiatric follow up prior to discharge
[2017-02-10] MEDS: QUETIAPINE 50 MG TABLET PO SCH ×2 (01:21→20:38)
[2017-02-10] MEDS: ATORVASTATIN 20 MG TABLET PO SCH ×2 (01:21→20:37)
[2017-02-10] MEDS: PANTOPRAZOLE 40 MG TABLET PO SCH (06:12)
[2017-02-10] MEDS: LEVOTHYROXINE 125 MCG TABLET PO SCH (06:12)
[2017-02-10] MEDS: BUSPIRONE 10 MG TABLET PO SCH ×3 (08:04→20:37)
[2017-02-10] MEDS: MULTI-VITAMIN PLAIN TABLET PO SCH (08:04)
[2017-02-10] MEDS: CLOPIDOGREL 75 MG TABLET PO SCH (08:05)
[2017-02-10] MEDS: DULOXETINE 60 MG CAPSULE PO SCH (08:05)
[2017-02-10] MEDS: LISINOPRIL 20 MG TABLET PO SCH (08:05)
[2017-02-10] MEDS: HYDROCODONE/APAP 5mg/325mg TABLET PO PRN ×2 (08:06→20:40)
--- NOTE | 2017-02-10 18:36 | Neuropsych Progress Note ---
[facility] Subjective Date: 02/10/17 - Sujective/Severity of Illness Medications: Acetaminophen (Tylenol) 325 - 650 mg PO Q5H PRN PRN Reason: Discomfort Last Admin: 02/09/17 06:29 Dose: 650 mg Acetaminophen/Hydrocodone Bitart ([place] 5/325) 1 - 2 tab PO Q6H PRN PRN Reason: Pain Last Admin: 02/10/17 08:06 Dose: 2 tab Artificial Tears (Refresh Classic) 1 drop EACH EYE PRN PRN Atorvastatin Calcium (Lipitor) 20 mg PO [facility] Last Admin: 02/10/17 01:21 Dose: Not Given Buspirone HCl (Buspar) 10 mg PO TID [facility] Last Admin: 02/10/17 15:07 Dose: 10 mg Clopidogrel Bisulfate (Plavix) 75 mg PO DAILY [facility] Last Admin: 02/10/17 08:05 Dose: 75 mg Duloxetine HCl (Cymbalta) 60 mg PO DAILY [facility] Last Admin: 02/10/17 08:05 Dose: 60 mg Haloperidol (Haldol) 0.5 mg PO Q6H PRN PRN Reason: Extreme agitation Haloperidol Lactate (Haldol) 0.5 mg IM Q6H PRN PRN Reason: Extreme agitation Levothyroxine Sodium (Synthroid) 125 mcg PO ACB [facility] Last Admin: 02/10/17 06:12 Dose: 125 mcg Lisinopril (Prinivil) 20 mg PO DAILY [facility] Last Admin: 02/10/17 08:05 Dose: 20 mg Lorazepam (Ativan) 0.5 mg PO Q6H PRN PRN Reason: Extreme agitation Last Admin: 02/08/17 16:47 Dose: 0.5 mg Lorazepam (Ativan Inj) 0.5 mg IM Q6H PRN PRN Reason: Extreme agitation Multivitamins (Theragran) 1 tab PO DAILY [facility] Last Admin: 02/10/17 08:04 Dose: 1 tab Ondansetron HCl (Zofran Po) 4 mg PO Q6H PRN PRN Reason: Nausea &/or vomiting Last Admin: 02/05/17 20:37 Dose: 4 mg Pantoprazole Sodium (Protonix Tab) 40 mg PO ACB [facility] Last Admin: 02/10/17 06:12 Dose: 40 mg Quetiapine Fumarate (Seroquel) 75 mg PO [facility] Last Admin: 02/10/17 01:21 Dose: Not Given Subjective: Patient seen and chart examined. Nursing reports pt is doing well. Sleeping well and has a good appetite. On face to face the pt states he is feeling better. He reports he feels his mood is stable and he denies any S/I. He is looking forward to possibly going to an [facility] if accepted. Tolerating meds. Start Time: 17:45 Stop Time: 18:00 Mental Status Exam Vitals: Last Vital Signs Temp 97.5 F 02/10/17 16:00 Pulse 84 02/10/17 16:00 Resp 16 02/10/17 16:00 BP 156/73 H 02/10/17 16:00 Pulse Ox 93 02/10/17 16:00 Height: 1.65 m Weight: 82 kg - Mental Status Exam Muscle Strength/Tone: Normal Dressing: Casual Grooming: Good Attitude: Cooperative Motor Activity: Retardation Eye Contact: Good Speech: Slowed, Coherent Volume: Soft Rhythm: Appropriate Rhythm Orientation: Oriented to person, Oriented to place, Oriented to time Mood: Other ("good") Rate of Thoughts: Delayed Thought Organization: Organized Associations: Intact Computation: Intact Thought Content: Normal Perception/Psychotic: Hx psychosis, not current Language: Naming Intact Fund of Knowledge: Appropriate Memory: Grossly Intact Suicidal Ideation: None Homicidal Ideation: None Insight: Good Judgement: Fair Impulse Control: Fair - Laboratory Result Diagrams: 02/09/17 13:04 02/07/17 04:33 Assessment and Plan (1) Major depressive disorder Qualifiers: Major depression recurrence: recurrent Active/Remission status: currently active Major depression episode severity: severe Psychotic features: without psychotic features Qualified Code(s): F33.2 - Major depressive disorder, recurrent severe without psychotic features Current visit: Yes Status: Chronic (2) Hypothyroidism Current visit: Yes Status: Chronic (3) Chronic migraine Current visit: Yes Status: Chronic (4) Hypertension Current visit: Yes Status: Chronic (5) Dyslipidemia Current visit: Yes Status: Chronic Hospital Course Summary Disclaimer: The visit summary below is not to be considered part of the above Progress Note. Hospital Course: 01/26/17- admit Agree with admission to [facility] unit for further psychiatric and treatment. Given patients aggressive suicide attempt with overdose recently. He is a level III under strict supervision. Did evaluate all medical screening performed in the emergency room. Will add a TSH for laboratory completeness, given that patient does have a history of hypothyroidism. Continue to encourage cautious use of [place] for chronic back pain. Will also add heat packs to use as needed. Continue to monitor blood pressures. He was borderline elevated this morning, however, this may be secondary to his pain. Continue on lisinopril All psychiatric care as per Dr. Worthington Appreciate medical consultation. The hospitalist services will continue to follow patient medically manage existing comorbidities during his stay at [facility]. At time of discharge medical care will return to primary care provider Dr Jorge Bowser 01/27/17 18:21 Continue current care 01/28/17 18:25 Decrease Celexa to 20mg PO daily Increase Cymbalta to 60mg PO daily 01/29/17 Affact appears flat/depressed. He is off suicide watch Blood pressure is well controlled on Lisinopril continues on usual home medications including lipitor, plavix and levothyroxine Overall appears medically stable Psychiatric care as per Dr. Grullon 01/29/17 11:08 D/C Celexa. Increase Seroquel to 75mg at HS. Consider adding Ritalin 01/30/17 10:56 Continue current care 02/01/17 13:46 02/01/17 Overall, Booker is medically stable. He continues to have flat, depressed affect and struggles with energy. He denies any SI, but has morbid thoughts. Continue psychiatric care. Continue to provide safe and supportive environment. Blood pressure remains well controlled on Lisinopril. Continue to monitor. Continues on usual home medications including lipitor, plavix and levothyroxine. Continue to complains of chronic pain in knees and back and requests to have his [place] dose increased to 10mg. Currently also on Ultram which he states helps. Will increase [place] to 2 tabs po Q6H PRN pain for additional pain control. Recent labs on 01/31 showed new thrombocytopenia with platelets at 119 but otherwise unremarkable. Recheck labs on 02/07/17 to monitor blood counts, electrolytes and renal function. 02/02/17 20:14: Increase the dose of Buspar to 10mg TID. Cont supportive therapy 02/03/17 17:35 Continue current care 02/04/17 17:36 Continue current care 02/05/17 11:07 Continue current care 02/06/17 12:23 Continue current care 02/07/17 22:47 Cont medication. Family is working on placement. SW to arrange OP follow with a psychiatrist, therapist and home health 02/08/17 14:37 Tenderness over right medial scapular border -Discussed with nursing. They will try a heating pad, aspercreme. -Continue Tylenol, Vidor as needed -Chest x-ray done on 01/25/17 was unremarkable -EKG on 01/25/17 showed left bundle branch block with occasional PVC, and repeat on 01/31/17 again showed left bundle branch block. -Consider repeating labs, chest x-ray. If the patient develops fever, productive cough, or increased dyspnea. Labs were done on 02/07/17, including CBC and BMP. -Thrombocytopenia and normocytic anemia is gradually worsening. Will repeat CBC tomorrow morning. -in the meantime, continue Plavix -BMP is stable Psychiatric -Continue medication, family working on placement 02/08/17 21:08 Cont. current management. Possible discharge on if family finds placement 02/09/17 23:48 Cont current management . Possible discharge Tuesday or early next week. He will require psychiatric follow up prior to discharge 02/10/17 18:36 Continue current care. Awaiting placement
[2017-02-11] MEDS: PANTOPRAZOLE 40 MG TABLET PO SCH (06:21)
[2017-02-11] MEDS: LEVOTHYROXINE 125 MCG TABLET PO SCH (06:21)
[2017-02-11] MEDS: HYDROCODONE/APAP 5mg/325mg TABLET PO PRN ×2 (08:23→20:11)
[2017-02-11] MEDS: LISINOPRIL 20 MG TABLET PO SCH (08:23)
[2017-02-11] MEDS: MULTI-VITAMIN PLAIN TABLET PO SCH (08:23)
[2017-02-11] MEDS: CLOPIDOGREL 75 MG TABLET PO SCH (08:23)
[2017-02-11] MEDS: BUSPIRONE 10 MG TABLET PO SCH ×3 (08:23→20:09)
[2017-02-11] MEDS: DULOXETINE 60 MG CAPSULE PO SCH (08:23)
[2017-02-11] MEDS: ATORVASTATIN 20 MG TABLET PO SCH ×2 (20:08→22:26)
[2017-02-11] MEDS: QUETIAPINE 50 MG TABLET PO SCH ×2 (20:10→22:29)
--- NOTE | 2017-02-11 20:32 | Neuropsych Progress Note ---
[facility] Subjective Date: 02/11/17 - Sujective/Severity of Illness Medications: Acetaminophen (Tylenol) 325 - 650 mg PO Q5H PRN PRN Reason: Discomfort Last Admin: 02/09/17 06:29 Dose: 650 mg Acetaminophen/Hydrocodone Bitart ([place] 5/325) 1 - 2 tab PO Q6H PRN PRN Reason: Pain Last Admin: 02/11/17 20:11 Dose: 2 tab Artificial Tears (Refresh Classic) 1 drop EACH EYE PRN PRN Atorvastatin Calcium (Lipitor) 20 mg PO [facility] Last Admin: 02/11/17 20:08 Dose: 20 mg Buspirone HCl (Buspar) 10 mg PO TID [facility] Last Admin: 02/11/17 20:09 Dose: 10 mg Clopidogrel Bisulfate (Plavix) 75 mg PO DAILY [facility] Last Admin: 02/11/17 08:23 Dose: 75 mg Duloxetine HCl (Cymbalta) 60 mg PO DAILY [facility] Last Admin: 02/11/17 08:23 Dose: 60 mg Haloperidol (Haldol) 0.5 mg PO Q6H PRN PRN Reason: Extreme agitation Haloperidol Lactate (Haldol) 0.5 mg IM Q6H PRN PRN Reason: Extreme agitation Levothyroxine Sodium (Synthroid) 125 mcg PO ACB [facility] Last Admin: 02/11/17 06:21 Dose: 125 mcg Lisinopril (Prinivil) 20 mg PO DAILY [facility] Last Admin: 02/11/17 08:23 Dose: 20 mg Lorazepam (Ativan) 0.5 mg PO Q6H PRN PRN Reason: Extreme agitation Last Admin: 02/08/17 16:47 Dose: 0.5 mg Lorazepam (Ativan Inj) 0.5 mg IM Q6H PRN PRN Reason: Extreme agitation Multivitamins (Theragran) 1 tab PO DAILY [facility] Last Admin: 02/11/17 08:23 Dose: 1 tab Ondansetron HCl (Zofran Po) 4 mg PO Q6H PRN PRN Reason: Nausea &/or vomiting Last Admin: 02/05/17 20:37 Dose: 4 mg Pantoprazole Sodium (Protonix Tab) 40 mg PO ACB [facility] Last Admin: 02/11/17 06:21 Dose: 40 mg Quetiapine Fumarate (Seroquel) 75 mg PO HS [facility] Last Admin: 02/11/17 20:10 Dose: 75 mg Subjective: Patient seen and chart examined. Nursing reports pt is doing well. Sleeping well and has a good appetite. Mood has been stable. On face to face the pt states he is doing well. Mood is stable and he denies any S/I. Reports his anxiety is well controlled. Tolerating meds. Start Time: 17:30 Stop Time: 17:45 Mental Status Exam Vitals: Last Vital Signs Temp 98.8 F 02/11/17 19:35 Pulse 86 02/11/17 19:35 Resp 16 02/11/17 19:35 BP 146/69 H 02/11/17 19:35 Pulse Ox 94 02/11/17 19:35 Height: 1.65 m Weight: 82 kg - Mental Status Exam Muscle Strength/Tone: Normal Dressing: Casual Grooming: Good Attitude: Cooperative Motor Activity: Retardation Eye Contact: Good Speech: Slowed, Coherent Volume: Soft Rhythm: Appropriate Rhythm Orientation: Oriented to person, Oriented to place, Oriented to time Mood: Other ("good") Rate of Thoughts: Delayed Thought Organization: Organized Associations: Intact Computation: Intact Thought Content: Normal Perception/Psychotic: Hx psychosis, not current Language: Naming Intact Fund of Knowledge: Appropriate Memory: Grossly Intact Suicidal Ideation: None Homicidal Ideation: None Insight: Good Judgement: Fair Impulse Control: Fair - Laboratory Result Diagrams: 02/09/17 13:04 02/07/17 04:33 Assessment and Plan (1) Major depressive disorder Qualifiers: Major depression recurrence: recurrent Active/Remission status: currently active Major depression episode severity: severe Psychotic features: without psychotic features Qualified Code(s): F33.2 - Major depressive disorder, recurrent severe without psychotic features Current visit: Yes Status: Chronic (2) Hypothyroidism Current visit: Yes Status: Chronic (3) Chronic migraine Current visit: Yes Status: Chronic (4) Hypertension Current visit: Yes Status: Chronic (5) Dyslipidemia Current visit: Yes Status: Chronic Hospital Course Summary Disclaimer: The visit summary below is not to be considered part of the above Progress Note. Hospital Course: 01/26/17- admit Agree with admission to [facility] for further psychiatric and treatment. Given patients aggressive suicide attempt with overdose recently. He is a level III under strict supervision. Did evaluate all medical screening performed in the emergency room. Will add a TSH for laboratory completeness, given that patient does have a history of hypothyroidism. Continue to encourage cautious use of [place] for chronic back pain. Will also add heat packs to use as needed. Continue to monitor blood pressures. He was borderline elevated this morning, however, this may be secondary to his pain. Continue on lisinopril All psychiatric care as per Dr. Worthington Appreciate medical consultation. The hospitalist services will continue to follow patient medically manage existing comorbidities during his stay at [facility]. At time of discharge medical care will return to primary care provider Dr Jorge Bowser 01/27/17 18:21 Continue current care 01/28/17 18:25 Decrease Celexa to 20mg PO daily Increase Cymbalta to 60mg PO daily 01/29/17 Affact appears flat/depressed. He is off suicide watch Blood pressure is well controlled on Lisinopril continues on usual home medications including lipitor, plavix and levothyroxine Overall appears medically stable Psychiatric care as per Dr. Grullon 01/29/17 11:08 D/C Celexa. Increase Seroquel to 75mg at HS. Consider adding Ritalin 01/30/17 10:56 Continue current care 02/01/17 13:46 02/01/17 Overall, Booker is medically stable. He continues to have flat, depressed affect and struggles with energy. He denies any SI, but has morbid thoughts. Continue psychiatric care. Continue to provide safe and supportive environment. Blood pressure remains well controlled on Lisinopril. Continue to monitor. Continues on usual home medications including lipitor, plavix and levothyroxine. Continue to complains of chronic pain in knees and back and requests to have his [place] dose increased to 10mg. Currently also on Ultram which he states helps. Will increase [place] to 2 tabs po Q6H PRN pain for additional pain control. Recent labs on 01/31 showed new thrombocytopenia with platelets at 119 but otherwise unremarkable. Recheck labs on 02/07/17 to monitor blood counts, electrolytes and renal function. 02/02/17 20:14: Increase the dose of Buspar to 10mg TID. Cont supportive therapy 02/03/17 17:35 Continue current care 02/04/17 17:36 Continue current care 02/05/17 11:07 Continue current care 02/06/17 12:23 Continue current care 02/07/17 22:47 Cont medication. Family is working on placement. SW to arrange OP follow with a psychiatrist, therapist and home health 02/08/17 14:37 Tenderness over right medial scapular border -Discussed with nursing. They will try a heating pad, aspercreme. -Continue Tylenol, [place] as needed -Chest x-ray done on 01/25/17 was unremarkable -EKG on 01/25/17 showed left bundle branch block with occasional PVC, and repeat on 01/31/17 again showed left bundle branch block. -Consider repeating labs, chest x-ray. If the patient develops fever, productive cough, or increased dyspnea. Labs were done on 02/07/17, including CBC and BMP. -Thrombocytopenia and normocytic anemia is gradually worsening. Will repeat CBC tomorrow morning. -in the meantime, continue Plavix -BMP is stable Psychiatric -Continue medication, family working on placement 02/08/17 21:08 Cont. current management. Possible discharge on if family finds placement 02/09/17 23:48 Cont current management . Possible discharge Tuesday or early next week. He will require psychiatric follow up prior to discharge 02/10/17 18:36 Continue current care. Awaiting placement 02/11/17 20:31 Continue current care
[2017-02-12] MEDS: PANTOPRAZOLE 40 MG TABLET PO SCH ×2 (08:21→20:28)
[2017-02-12] MEDS: LEVOTHYROXINE 125 MCG TABLET PO SCH (08:22)
[2017-02-12] MEDS: BUSPIRONE 10 MG TABLET PO SCH ×3 (08:22→20:28)
[2017-02-12] MEDS: LISINOPRIL 20 MG TABLET PO SCH (08:22)
[2017-02-12] MEDS: CLOPIDOGREL 75 MG TABLET PO SCH (08:22)
[2017-02-12] MEDS: MULTI-VITAMIN PLAIN TABLET PO SCH (08:22)
[2017-02-12] MEDS: DULOXETINE 60 MG CAPSULE PO SCH (08:22)
[2017-02-12] MEDS: HYDROCODONE/APAP 5mg/325mg TABLET PO PRN ×2 (08:23→20:28)
--- NOTE | 2017-02-12 10:45 | Neuropsych Progress Note ---
[facility] Subjective Date: 02/12/17 - Sujective/Severity of Illness Medications: Acetaminophen (Tylenol) 325 - 650 mg PO Q5H PRN PRN Reason: Discomfort Last Admin: 02/09/17 06:29 Dose: 650 mg Acetaminophen/Hydrocodone Bitart ([place] 5/325) 1 - 2 tab PO Q6H PRN PRN Reason: Pain Last Admin: 02/12/17 08:23 Dose: 1 tab Artificial Tears (Refresh Classic) 1 drop EACH EYE PRN PRN Atorvastatin Calcium (Lipitor) 20 mg PO [facility] Last Admin: 02/11/17 22:26 Dose: Not Given Buspirone HCl (Buspar) 10 mg PO TID [facility] Last Admin: 02/12/17 08:22 Dose: 10 mg Clopidogrel Bisulfate (Plavix) 75 mg PO DAILY [facility] Last Admin: 02/12/17 08:22 Dose: 75 mg Duloxetine HCl (Cymbalta) 60 mg PO DAILY [facility] Last Admin: 02/12/17 08:22 Dose: 60 mg Haloperidol (Haldol) 0.5 mg PO Q6H PRN PRN Reason: Extreme agitation Haloperidol Lactate (Haldol) 0.5 mg IM Q6H PRN PRN Reason: Extreme agitation Levothyroxine Sodium (Synthroid) 125 mcg PO ACB [facility] Last Admin: 02/12/17 08:22 Dose: 125 mcg Lisinopril (Prinivil) 20 mg PO DAILY [facility] Last Admin: 02/12/17 08:22 Dose: 20 mg Lorazepam (Ativan) 0.5 mg PO Q6H PRN PRN Reason: Extreme agitation Last Admin: 02/08/17 16:47 Dose: 0.5 mg Lorazepam (Ativan Inj) 0.5 mg IM Q6H PRN PRN Reason: Extreme agitation Multivitamins (Theragran) 1 tab PO DAILY [facility] Last Admin: 02/12/17 08:22 Dose: 1 tab Ondansetron HCl (Zofran Po) 4 mg PO Q6H PRN PRN Reason: Nausea &/or vomiting Last Admin: 02/05/17 20:37 Dose: 4 mg Pantoprazole Sodium (Protonix Tab) 40 mg PO ACB [facility] Last Admin: 02/12/17 08:21 Dose: 40 mg Quetiapine Fumarate (Seroquel) 75 mg PO [facility] Last Admin: 02/11/17 22:29 Dose: Not Given Subjective: Patient seen and chart examined. Nursing reports pt is doing well. Sleeping well and has a good appetite. Mood has been stable. On face to face the pt states he is doing well. He reports his mood is stable and he denies any S/I. He reports he feels he is safe to D/C. Start Time: 10:15 Stop Time: 10:30 Mental Status Exam Vitals: Last Vital Signs Temp 97.6 F 02/12/17 08:00 Pulse 85 02/12/17 08:00 Resp 16 02/12/17 08:00 BP 139/71 02/12/17 08:00 Pulse Ox 94 02/12/17 08:00 Height: 1.65 m Weight: 82 kg - Mental Status Exam Muscle Strength/Tone: Normal Dressing: Casual Grooming: Good Attitude: Cooperative Motor Activity: Retardation Eye Contact: Good Speech: Slowed, Coherent Volume: Soft Rhythm: Appropriate Rhythm Orientation: Oriented to person, Oriented to place, Oriented to time Mood: Other ("good") Rate of Thoughts: Delayed Thought Organization: Organized Associations: Intact Computation: Intact Thought Content: Normal Perception/Psychotic: Hx psychosis, not current Language: Naming Intact Fund of Knowledge: Appropriate Memory: Grossly Intact Suicidal Ideation: None Homicidal Ideation: None Insight: Good Judgement: Fair Impulse Control: Fair - Laboratory Result Diagrams: 02/09/17 13:04 02/07/17 04:33 Assessment and Plan (1) Major depressive disorder Qualifiers: Major depression recurrence: recurrent Active/Remission status: currently active Major depression episode severity: severe Psychotic features: without psychotic features Qualified Code(s): F33.2 - Major depressive disorder, recurrent severe without psychotic features Current visit: Yes Status: Chronic (2) Hypothyroidism Current visit: Yes Status: Chronic (3) Chronic migraine Current visit: Yes Status: Chronic (4) Hypertension Current visit: Yes Status: Chronic (5) Dyslipidemia Current visit: Yes Status: Chronic Hospital Course Summary Disclaimer: The visit summary below is not to be considered part of the above Progress Note. Hospital Course: 01/26/17- admit Agree with admission to [facility] for further psychiatric and treatment. Given patients aggressive suicide attempt with overdose recently. He is a level III under strict supervision. Did evaluate all medical screening performed in the emergency room. Will add a TSH for laboratory completeness, given that patient does have a history of hypothyroidism. Continue to encourage cautious use of [place] for chronic back pain. Will also add heat packs to use as needed. Continue to monitor blood pressures. He was borderline elevated this morning, however, this may be secondary to his pain. Continue on lisinopril All psychiatric care as per Dr. Worthington Appreciate medical consultation. The hospitalist services will continue to follow patient medically manage existing comorbidities during his stay at [facility]. At time of discharge medical care will return to primary care provider Dr Jorge Bowser 01/27/17 18:21 Continue current care 01/28/17 18:25 Decrease Celexa to 20mg PO daily Increase Cymbalta to 60mg PO daily 01/29/17 Affact appears flat/depressed. He is off suicide watch Blood pressure is well controlled on Lisinopril continues on usual home medications including lipitor, plavix and levothyroxine Overall appears medically stable Psychiatric care as per Dr. Grullon 01/29/17 11:08 D/C Celexa. Increase Seroquel to 75mg at HS. Consider adding Ritalin 01/30/17 10:56 Continue current care 02/01/17 13:46 02/01/17 Overall, Booker is medically stable. He continues to have flat, depressed affect and struggles with energy. He denies any SI, but has morbid thoughts. Continue psychiatric care. Continue to provide safe and supportive environment. Blood pressure remains well controlled on Lisinopril. Continue to monitor. Continues on usual home medications including lipitor, plavix and levothyroxine. Continue to complains of chronic pain in knees and back and requests to have his [place] dose increased to 10mg. Currently also on Ultram which he states helps. Will increase [place] to 2 tabs po Q6H PRN pain for additional pain control. Recent labs on 01/31 showed new thrombocytopenia with platelets at 119 but otherwise unremarkable. Recheck labs on 02/07/17 to monitor blood counts, electrolytes and renal function. 02/02/17 20:14: Increase the dose of Buspar to 10mg TID. Cont supportive therapy 02/03/17 17:35 Continue current care 02/04/17 17:36 Continue current care 02/05/17 11:07 Continue current care 02/06/17 12:23 Continue current care 02/07/17 22:47 Cont medication. Family is working on placement. SW to arrange OP follow with a psychiatrist, therapist and home health 02/08/17 14:37 Tenderness over right medial scapular border -Discussed with nursing. They will try a heating pad, aspercreme. -Continue Tylenol, [place] as needed -Chest x-ray done on 01/25/17 was unremarkable -EKG on 01/25/17 showed left bundle branch block with occasional PVC, and repeat on 01/31/17 again showed left bundle branch block. -Consider repeating labs, chest x-ray. If the patient develops fever, productive cough, or increased dyspnea. Labs were done on 02/07/17, including CBC and BMP. -Thrombocytopenia and normocytic anemia is gradually worsening. Will repeat CBC tomorrow morning. -in the meantime, continue Plavix -BMP is stable Psychiatric -Continue medication, family working on placement 02/08/17 21:08 Cont. current management. Possible discharge on if family finds placement 02/09/17 23:48 Cont current management . Possible discharge Tuesday or early next week. He will require psychiatric follow up prior to discharge 02/10/17 18:36 Continue current care. Awaiting placement 02/11/17 20:31 Continue current care 02/12/17 10:44 Continue current care
--- NOTE | 2017-02-12 13:50 | Progress Note ---
Subjective: Booker is seen today in follow up for his MDD. He is seen while sitting in the day room, watching TV and socializing with other patients. He has no physical complaints including no chest pain, shortness of breath, abdominal pain, nausea , vomiting or dysuria. He does ask about if he will be able to see the construction craft laborer prior to his discharge on Wednesday 02/14, to get a "nail trim". Discussed with him that he will most likely need to follow up as an outpatient. He also requests evaluation of a lipoma to his right occipital region. He denies any pain, bleeding, changes, headaches or other concerns with the lipoma ; just wants to know what it is. He is encouraged to follow up as an outpatient with his PCP with additional concerns. His appetite has been good and bowels are moving. Anticipate discharge on 02/14. Objective Vital signs: Temperature 97.6 F 02/12/17 08:00 Pulse Rate 85 02/12/17 08:00 Respiratory Rate 16 02/12/17 08:00 Blood Pressure 139/71 02/12/17 08:00 Pulse Oximetry 94 02/12/17 08:00 Oxygen Delivery Method Room Air Weight: 180 lb 12.465 oz - Constitutional Present: no acute distress, well nourished, well developed, cooperative - Routine HEENT Exam Head: Present: normocephalic, atraumatic. Absent: laceration, hematoma Eye: Present: PERRL. Absent: conjunctival icterus, scleral injection ENT: Present: mucous membranes moist Comments: lipoma noted to right occipital region. - Routine Respiratory Exam Present: CTA bilaterally. Absent: rhonchi, stridor, wheezes - Routine Cardiovascular Exam Present: RRR, S1, S2 - Routine Abdominal Exam Present: soft, normoactive bowel sounds, non distended, non tender - Routine Extremities Exam Present: no edema, non tender, full ROM, pulses intact - Routine Back/Spine/Pelvis Exam Back/Spine: Present: full ROM. Absent: vertebral tenderness, warmth - Routine Musculoskeletal Exam Musculoskeletal: Present: normal strength, no tenderness, moving extremities well - Routine Skin Exam Present: intact, dry, warm. Absent: jaundice - Routine Neurological Exam Present: alert, oriented X3, moving all extremities, hearing grossly intact, normal speech. Absent: facial asymmetry - Routine Lymphatic Exam Lymphatic: Absent: lymphedema - Routine Psychiatric Exam Present: normal affect, cooperative. Absent: suicidal ideation Results - Labs CBC & Chem 7: 02/09/17 13:04 02/07/17 04:33 Assessment and Plan (1) Major depressive disorder Current visit: Yes Status: Chronic (2) Hypothyroidism Current visit: Yes Status: Chronic (3) Chronic migraine Current visit: Yes Status: Chronic (4) Hypertension Current visit: Yes Status: Chronic (5) Dyslipidemia Current visit: Yes Status: Chronic (6) Suicide attempt Problem details: Alprazolam overdose Current visit: Yes Status: Acute (7) Chronic back pain Current visit: Yes Status: Chronic (8) Normocytic anemia Current visit: Yes Status: Acute (9) Thrombocytopenia Current visit: Yes Status: Acute Assessment and Plan: Overall, Booker is doing well and is medically stable. Exam is benign. No physical complaints on exam. Questions pertaining to having his toe nails trimmed by a construction craft laborer prior to discharge on 02/14 were discussed and he is encouraged to follow up as outpatient. Anticipate discharge on 02/14. MDD -Continue care per psychiatric team. -Provides safe and supportive environment. Tenderness over right medial scapular border, resolved. -Discussed with nursing. They will try a heating pad, aspercreme. -Continue Tylenol, [place] as needed -EKG on 01/25/17 showed left bundle branch block with occasional PVC, and repeat on 01/31/17 again showed left bundle branch block. Thrombocytopenia and normocytic anemia, resolved -CBC repeated on 02/09 showed resolved thrombocytopenia and anemia. Recommend repeat labs and follow up as outpatient. -Continue Plavix. - Time spent with patient 25 - 35 minutes Sepsis Assessment - Evaluation Sepsis screening result: No Definite Risk Hospital Course Summary Disclaimer: The visit summary below is not to be considered part of the above Progress Note. Hospital Course: 01/26/17- admit Agree with admission to [facility] for further psychiatric and treatment. Given patients aggressive suicide attempt with overdose recently. He is a level III under strict supervision. Did evaluate all medical screening performed in the emergency room. Will add a TSH for laboratory completeness, given that patient does have a history of hypothyroidism. Continue to encourage cautious use of [place] for chronic back pain. Will also add heat packs to use as needed. Continue to monitor blood pressures. He was borderline elevated this morning, however, this may be secondary to his pain. Continue on lisinopril All psychiatric care as per Dr. Worthington Appreciate medical consultation. The hospitalist services will continue to follow patient medically manage existing comorbidities during his stay at [facility]. At time of discharge medical care will return to primary care provider Dr Jorge Bowser 01/27/17 18:21 Continue current care 01/28/17 18:25 Decrease Celexa to 20mg PO daily Increase Cymbalta to 60mg PO daily 01/29/17 Affact appears flat/depressed. He is off suicide watch Blood pressure is well controlled on Lisinopril continues on usual home medications including lipitor, plavix and levothyroxine Overall appears medically stable Psychiatric care as per Dr. Grullon 01/29/17 11:08 D/C Celexa. Increase Seroquel to 75mg at HS. Consider adding Ritalin 01/30/17 10:56 Continue current care 02/01/17 13:46 02/01/17 Overall, Booker is medically stable. He continues to have flat, depressed affect and struggles with energy. He denies any SI, but has morbid thoughts. Continue psychiatric care. Continue to provide safe and supportive environment. Blood pressure remains well controlled on Lisinopril. Continue to monitor. Continues on usual home medications including lipitor, plavix and levothyroxine. Continue to complains of chronic pain in knees and back and requests to have his [place] dose increased to 10mg. Currently also on Ultram which he states helps. Will increase [place] to 2 tabs po Q6H PRN pain for additional pain control. Recent labs on 01/31 showed new thrombocytopenia with platelets at 119 but otherwise unremarkable. Recheck labs on 02/07/17 to monitor blood counts, electrolytes and renal function. 02/02/17 20:14: Increase the dose of Buspar to 10mg TID. Cont supportive therapy 02/03/17 17:35 Continue current care 02/04/17 17:36 Continue current care 02/05/17 11:07 Continue current care 02/06/17 12:23 Continue current care 02/07/17 22:47 Cont medication. Family is working on placement. SW to arrange OP follow with a psychiatrist, therapist and home health 02/08/17 14:37 Tenderness over right medial scapular border -Discussed with nursing. They will try a heating pad, aspercreme. -Continue Tylenol, [place] as needed -Chest x-ray done on 01/25/17 was unremarkable -EKG on 01/25/17 showed left bundle branch block with occasional PVC, and repeat on 01/31/17 again showed left bundle branch block. -Consider repeating labs, chest x-ray. If the patient develops fever, productive cough, or increased dyspnea. Labs were done on 02/07/17, including CBC and BMP. -Thrombocytopenia and normocytic anemia is gradually worsening. Will repeat CBC tomorrow morning. -in the meantime, continue Plavix -BMP is stable Psychiatric -Continue medication, family working on placement 02/08/17 21:08 Cont. current management. Possible discharge on if family finds placement 02/09/17 23:48 Cont current management . Possible discharge Tuesday or early next week. He will require psychiatric follow up prior to discharge 02/10/17 18:36 Continue current care. Awaiting placement 02/11/17 20:31 Continue current care 02/12/17 10:44 Continue current care 02/12/17 13:55 Overall, Booker is doing well and is medically stable. Exam is benign. No physical complaints on exam. Questions pertaining to having his toe nails trimmed by a construction craft laborer prior to discharge on 02/14 were discussed and he is encouraged to follow up as outpatient. Anticipate discharge on 02/14. MDD -Continue care per psychiatric team. -Provides safe and supportive environment. Tenderness over right medial scapular border, resolved. -Discussed with nursing. They will try a heating pad, aspercreme. -Continue Tylenol, [place] as needed -EKG on 01/25/17 showed left bundle branch block with occasional PVC, and repeat on 01/31/17 again showed left bundle branch block. Thrombocytopenia and normocytic anemia, resolved -CBC repeated on 02/09 showed resolved thrombocytopenia and anemia. Recommend repeat labs and follow up as outpatient. -Continue Plavix.
[2017-02-12] MEDS: QUETIAPINE 50 MG TABLET PO SCH (20:29)
[2017-02-12] MEDS: ATORVASTATIN 20 MG TABLET PO SCH (20:29)
[2017-02-13] MEDS: ATORVASTATIN 20 MG TABLET PO SCH ×3 (00:13→21:50)
[2017-02-13] MEDS: QUETIAPINE 50 MG TABLET PO SCH ×3 (00:13→21:50)
[2017-02-13] MEDS: PANTOPRAZOLE 40 MG TABLET PO SCH (08:10)
[2017-02-13] MEDS: DULOXETINE 60 MG CAPSULE PO SCH (08:11)
[2017-02-13] MEDS: BUSPIRONE 10 MG TABLET PO SCH ×3 (08:11→20:42)
[2017-02-13] MEDS: CLOPIDOGREL 75 MG TABLET PO SCH (08:11)
[2017-02-13] MEDS: LEVOTHYROXINE 125 MCG TABLET PO SCH (08:11)
[2017-02-13] MEDS: LISINOPRIL 20 MG TABLET PO SCH (08:11)
[2017-02-13] MEDS: MULTI-VITAMIN PLAIN TABLET PO SCH (08:11)
[2017-02-13] MEDS: HYDROCODONE/APAP 5mg/325mg TABLET PO PRN ×3 (08:43→20:43)
--- NOTE | 2017-02-13 12:29 | Neuropsych Progress Note ---
[facility] Subjective Date: 02/13/17 - Sujective/Severity of Illness Medications: Acetaminophen (Tylenol) 325 - 650 mg PO Q5H PRN PRN Reason: Discomfort Last Admin: 02/09/17 06:29 Dose: 650 mg Acetaminophen/Hydrocodone Bitart ([place] 5/325) 1 - 2 tab PO Q6H PRN PRN Reason: Pain Last Admin: 02/13/17 08:43 Dose: 1 tab Artificial Tears (Refresh Classic) 1 drop EACH EYE PRN PRN Atorvastatin Calcium (Lipitor) 20 mg PO [facility] Last Admin: 02/13/17 00:13 Dose: Not Given Buspirone HCl (Buspar) 10 mg PO TID [facility] Last Admin: 02/13/17 08:11 Dose: 10 mg Clopidogrel Bisulfate (Plavix) 75 mg PO DAILY [facility] Last Admin: 02/13/17 08:11 Dose: 75 mg Duloxetine HCl (Cymbalta) 60 mg PO DAILY [facility] Last Admin: 02/13/17 08:11 Dose: 60 mg Haloperidol (Haldol) 0.5 mg PO Q6H PRN PRN Reason: Extreme agitation Haloperidol Lactate (Haldol) 0.5 mg IM Q6H PRN PRN Reason: Extreme agitation Levothyroxine Sodium (Synthroid) 125 mcg PO ACB [facility] Last Admin: 02/13/17 08:11 Dose: 125 mcg Lisinopril (Prinivil) 20 mg PO DAILY [facility] Last Admin: 02/13/17 08:11 Dose: 20 mg Lorazepam (Ativan) 0.5 mg PO Q6H PRN PRN Reason: Extreme agitation Last Admin: 02/08/17 16:47 Dose: 0.5 mg Lorazepam (Ativan Inj) 0.5 mg IM Q6H PRN PRN Reason: Extreme agitation Multivitamins (Theragran) 1 tab PO DAILY [facility] Last Admin: 02/13/17 08:11 Dose: 1 tab Ondansetron HCl (Zofran Po) 4 mg PO Q6H PRN PRN Reason: Nausea &/or vomiting Last Admin: 02/05/17 20:37 Dose: 4 mg Pantoprazole Sodium (Protonix Tab) 40 mg PO ACB [facility] Last Admin: 02/13/17 08:10 Dose: 40 mg Quetiapine Fumarate (Seroquel) 75 mg PO [facility] Last Admin: 02/13/17 00:13 Dose: Not Given Subjective: Patient seen and chart examined. Nursing reports pt is doing well. Sleeping well and has a good appetite. Mood has been stable. On face to face the pt states he is doing well. He reports his mood is stable and he denies any S/I. He states his daughter found an AL in [place] she likes and he plans to D/C there tomorrow. Start Time: 12:00 Stop Time: 12:15 Mental Status Exam Vitals: Last Vital Signs Temp 97.1 F 02/13/17 08:00 Pulse 95 02/13/17 08:00 Resp 16 02/13/17 08:00 BP 118/69 02/13/17 08:00 Pulse Ox 96 02/13/17 08:00 Height: 1.65 m Weight: 82 kg - Mental Status Exam Muscle Strength/Tone: Normal Dressing: Casual Grooming: Good Attitude: Cooperative Motor Activity: Retardation Eye Contact: Good Speech: Slowed, Coherent Volume: Soft Rhythm: Appropriate Rhythm Orientation: Oriented to person, Oriented to place, Oriented to time Mood: Other ("good") Rate of Thoughts: Delayed Thought Organization: Organized Associations: Intact Computation: Intact Thought Content: Normal Perception/Psychotic: Hx psychosis, not current Language: Naming Intact Fund of Knowledge: Appropriate Memory: Grossly Intact Suicidal Ideation: None Homicidal Ideation: None Insight: Good Judgement: Fair Impulse Control: Fair - Laboratory Result Diagrams: 02/09/17 13:04 02/07/17 04:33 Assessment and Plan (1) Major depressive disorder Qualifiers: Major depression recurrence: recurrent Active/Remission status: currently active Major depression episode severity: severe Psychotic features: without psychotic features Qualified Code(s): F33.2 - Major depressive disorder, recurrent severe without psychotic features Current visit: Yes Status: Chronic (2) Hypothyroidism Current visit: Yes Status: Chronic (3) Chronic migraine Current visit: Yes Status: Chronic (4) Hypertension Current visit: Yes Status: Chronic (5) Dyslipidemia Current visit: Yes Status: Chronic Hospital Course Summary Disclaimer: The visit summary below is not to be considered part of the above Progress Note. Hospital Course: 01/26/17- admit Agree with admission to [facility] for further psychiatric and treatment. Given patients aggressive suicide attempt with overdose recently. He is a level III under strict supervision. Did evaluate all medical screening performed in the emergency room. Will add a TSH for laboratory completeness, given that patient does have a history of hypothyroidism. Continue to encourage cautious use of [place] for chronic back pain. Will also add heat packs to use as needed. Continue to monitor blood pressures. He was borderline elevated this morning, however, this may be secondary to his pain. Continue on lisinopril All psychiatric care as per Dr. Worthington Appreciate medical consultation. The hospitalist services will continue to follow patient medically manage existing comorbidities during his stay at [facility]. At time of discharge medical care will return to primary care provider Dr Jorge Bowser 01/27/17 18:21 Continue current care 01/28/17 18:25 Decrease Celexa to 20mg PO daily Increase Cymbalta to 60mg PO daily 01/29/17 Affact appears flat/depressed. He is off suicide watch Blood pressure is well controlled on Lisinopril continues on usual home medications including lipitor, plavix and levothyroxine Overall appears medically stable Psychiatric care as per Dr. Grullon 01/29/17 11:08 D/C Celexa. Increase Seroquel to 75mg at HS. Consider adding Ritalin 01/30/17 10:56 Continue current care 02/01/17 13:46 02/01/17 Overall, Booker is medically stable. He continues to have flat, depressed affect and struggles with energy. He denies any SI, but has morbid thoughts. Continue psychiatric care. Continue to provide safe and supportive environment. Blood pressure remains well controlled on Lisinopril. Continue to monitor. Continues on usual home medications including lipitor, plavix and levothyroxine. Continue to complains of chronic pain in knees and back and requests to have his [place] dose increased to 10mg. Currently also on Ultram which he states helps. Will increase [place] to 2 tabs po Q6H PRN pain for additional pain control. Recent labs on 01/31 showed new thrombocytopenia with platelets at 119 but otherwise unremarkable. Recheck labs on 02/07/17 to monitor blood counts, electrolytes and renal function. 02/02/17 20:14: Increase the dose of Buspar to 10mg TID. Cont supportive therapy 02/03/17 17:35 Continue current care 02/04/17 17:36 Continue current care 02/05/17 11:07 Continue current care 02/06/17 12:23 Continue current care 02/07/17 22:47 Cont medication. Family is working on placement. SW to arrange OP follow with a psychiatrist, therapist and home health 02/08/17 14:37 Tenderness over right medial scapular border -Discussed with nursing. They will try a heating pad, aspercreme. -Continue Tylenol, [place] as needed -Chest x-ray done on 01/25/17 was unremarkable -EKG on 01/25/17 showed left bundle branch block with occasional PVC, and repeat on 01/31/17 again showed left bundle branch block. -Consider repeating labs, chest x-ray. If the patient develops fever, productive cough, or increased dyspnea. Labs were done on 02/07/17, including CBC and BMP. -Thrombocytopenia and normocytic anemia is gradually worsening. Will repeat CBC tomorrow morning. -in the meantime, continue Plavix -BMP is stable Psychiatric -Continue medication, family working on placement 02/08/17 21:08 Cont. current management. Possible discharge on if family finds placement 02/09/17 23:48 Cont current management . Possible discharge Tuesday or early next week. He will require psychiatric follow up prior to discharge 02/10/17 18:36 Continue current care. Awaiting placement 02/11/17 20:31 Continue current care 02/12/17 10:44 Continue current care 02/12/17 13:55 Overall, Booker is doing well and is medically stable. Exam is benign. No physical complaints on exam. Questions pertaining to having his toe nails trimmed by a barn and property manager prior to discharge on 02/14 were discussed and he is encouraged to follow up as outpatient. Anticipate discharge on 02/14. MDD -Continue care per psychiatric team. -Provides safe and supportive environment. Tenderness over right medial scapular border, resolved. -Discussed with nursing. They will try a heating pad, aspercreme. -Continue Tylenol, [place] as needed -EKG on 01/25/17 showed left bundle branch block with occasional PVC, and repeat on 01/31/17 again showed left bundle branch block. Thrombocytopenia and normocytic anemia, resolved -CBC repeated on 02/09 showed resolved thrombocytopenia and anemia. Recommend repeat labs and follow up as outpatient. -Continue Plavix. 02/13/17 12:29 Plan D/C for tomorrow
--- NOTE | 2017-02-13 12:38 | Discharge Instructions ---
Discharge Plan - Med Rec/Dispo Referrals/Follow Up: [facility] [Provider Group] (Dr. Dara Cruz on 02/14/17 at 12:30 pm for Mental Health follow-up. . [facility] [address] [place] [address]. [place] [address] Please bring your insurance cards and photo I.D. ) Jorge Bowser MD [Family Provider] - (Dr. Marky Bowser on 02/25/17 at 8:30 am for Hosp. follow-up. [facility] [address] [address]) Additional Instructions: Reasons for Admission: Post suicide attempt by overdose. Discharge Diagnosis: IN CASE OF PSYCHIATRIC EMERGENCY, CONTACT [facility] STAFF AT [phone] ( available 24 hrs daily). Prescriptions: New Buspirone [Buspar] 10 mg PO TID #90 tablet Duloxetine [Cymbalta] 60 mg PO DAILY #30 capsule Quetiapine [Seroquel] 75 mg PO HS #45 tablet Discontinued Hydrocodone/APAP 5/325 [[place] 5/325] 1 tab PO TID PRN PRN Reason: Pain Hydrocodone/APAP 10/325 [[place] 10/325] 1 tab PO TID PRN PRN Reason: Pain Citalopram [Celexa] 40 mg PO DAILY Duloxetine [Cymbalta] 30 mg PO DAILY Eszopiclone [Lunesta] 3 mg PO HS Methylphenidate HCl [Ritalin] 1 tab PO TID Trazodone [Desyrel] 75 mg PO HS No Action Atorvastatin [Lipitor] 20 mg PO HS Levothyroxine Sodium 125 mcg PO DAILY Lisinopril [Zestril] 20 mg PO DAILY Clopidogrel Bisulfate [Clopidogrel] 75 mg PO DAILY Pantoprazole Tab [Protonix Tab] 1 tab PO ACB Discharge Instructions/Outpatient Orders: Final Provider Discharge Instructions Location: Determined By Patient - Disposition 01 Discharged Home, Self-Care
[2017-02-13 17:16] VITALS: RESP 18; TEMP 98.6; O2SAT 94
[2017-02-13 21:49] VITALS: BP 125/67; PULSE 76
[2017-02-14] MEDS: LEVOTHYROXINE 125 MCG TABLET PO SCH (06:17)
[2017-02-14] MEDS: PANTOPRAZOLE 40 MG TABLET PO SCH (06:17)
[2017-02-14] MEDS: BUSPIRONE 10 MG TABLET PO SCH (08:00)
[2017-02-14] MEDS: MULTI-VITAMIN PLAIN TABLET PO SCH (08:00)
[2017-02-14] MEDS: DULOXETINE 60 MG CAPSULE PO SCH (08:00)
[2017-02-14] MEDS: CLOPIDOGREL 75 MG TABLET PO SCH (08:00)
[2017-02-14] MEDS: LISINOPRIL 20 MG TABLET PO SCH (08:00)
[2017-02-14] MEDS: HYDROCODONE/APAP 5mg/325mg TABLET PO PRN (09:21)
--- NOTE | 2017-02-14 09:53 | Discharge Instructions ---
Discharge Plan - Med Rec/Dispo Referrals/Follow Up: [facility] [Provider Group] (Dr. Dara Cruz on 02/14/17 at 12:30 pm for Mental Health follow-up. . [facility] [address] [place] [place] [address] Please bring your insurance cards and photo I.D. ) Jorge Bowser MD [Family Provider] - (Dr. Marky Bowser on 02/25/17 at 8:30 am for Hosp. follow-up. [facility] [address] [address]) Luis Instructions: Depression (GEN), Suicide Prevention for Adults (GEN) Additional Instructions: Reasons for Admission: Post suicide attempt by overdose. Discharge Diagnosis: Major Depressive Disorder, Recurrent Severe IN CASE OF PSYCHIATRIC EMERGENCY, CONTACT GENER[facility] STAFF AT [phone] ( available 24 hrs daily). Prescriptions: New Buspirone [Buspar] 10 mg PO TID #90 tablet Duloxetine [Cymbalta] 60 mg PO DAILY #30 capsule Quetiapine [Seroquel] 75 mg PO HS #45 tablet Acetaminophen [Tylenol] 325 - 650 mg PO Q5H PRN tablet PRN Reason: Discomfort Multi-Vitamin Plain [Theragran] 1 tab PO DAILY tablet Polyvinyl Alcohol/Povidone O/S [Refresh Classic] 1 drop EACH EYE PRN PRN amp PRN Reason: dry eyes Hydrocodone/APAP 5/325 [[place] 5/325] 1 - 2 tab PO Q6H PRN #15 tablet PRN Reason: Pain Continue Levothyroxine Sodium 125 mcg PO DAILY Lisinopril [Zestril] 20 mg PO DAILY Clopidogrel Bisulfate [Clopidogrel] 75 mg PO DAILY Pantoprazole Tab [Protonix Tab] 1 tab PO ACB Discontinued Hydrocodone/APAP 5/325 [[place] 5/325] 1 tab PO TID PRN PRN Reason: Pain Hydrocodone/APAP 10/325 [[place] 10/325] 1 tab PO TID PRN PRN Reason: Pain Citalopram [Celexa] 40 mg PO DAILY Duloxetine [Cymbalta] 30 mg PO DAILY Eszopiclone [Lunesta] 3 mg PO HS Methylphenidate HCl [Ritalin] 1 tab PO TID Trazodone [Desyrel] 75 mg PO HS No Action Atorvastatin [Lipitor] 20 mg PO HS Discharge Instructions/Outpatient Orders: Final Provider Discharge Instructions Location: Determined By Patient - Disposition 01 Discharged Home, Self-Care
--- NOTE | 2017-02-25 14:33 | Neuropsychiatric Disch Summary ---
Discharge Information Date of admission: 01/25/17 14:53 Attending Physician: Zulma Kauffman MD Primary care physician: Jorge Bowser MD Consults: 01/25/17 18:50 Physician Consult [CONS] Routine Consulting Provider: Leyla Baxter Reason For Exam: H&P and Medical Managment Ordering Provider has Notified Commercial Carpenter: Denise 01/26/17 12:36 Case Management Consult [CONS] Routine Reason For Exam: 02/06/17 18:59 Physician Consult [CONS] Routine Consulting Provider: Xiang Lopez Reason For Exam: [thick] nail care Ordering Provider has Notified Commercial Carpenter: No - Discharge Diagnosis (1) Major depressive disorder Qualifiers: Major depression recurrence: recurrent Active/Remission status: currently active Major depression episode severity: severe Psychotic features: without psychotic features Qualified Code(s): F33.2 - Major depressive disorder, recurrent severe without psychotic features Status: Chronic (2) Hypothyroidism Status: Chronic (3) Chronic migraine Status: Chronic (4) Hypertension Status: Chronic (5) Dyslipidemia Status: Chronic - Laboratory Labs: 02/09/17 13:04 02/07/17 04:33 Date of Admission: 01/25/17 14:53 History of Present Illness: Patient is an 81-year-old, , retired, male who presented through the ER post suicide attempt by overdose on over #60 tabs of about 1mg Xanax about 2 weeks ago. This was a planned suicide attempt and he was said to have been found unresponsive by his house keeper on a routine visit. Patient was medically stabilized in [facility] ([facility]) prior to transfer to [facility]. He was seen to be alert and orientated to time, place and person. He reports history of Depression since in his early 70's and has been on medication since then. He endorses depressed mood, anhedonia , insomnia,loss of appetite, low energy, lack of motivation and intermittent thoughts of suicide. Patient continues to endorse suicide ideation but he denies any plan to hurt himself or some other in the hospital. He often feels like he is a burden to his family. He also feels like he is no longer in control of the things he does. Patient states that about 3 weeks ago, his PCP along with his family felt he was taking too many medication and the PCP suggested cutting down on his Xanax, but patient decided to quit "cold turkey" and began having hallucinations. He currently denies any auditory or visual hallucinations and he denies any delusion. He also denies history of manic or hypomanic symptoms. Patient reports history of "nervousness" but he denies any panic attack. 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 Hospital Course This is a general summary of the patient's hospital course. For more details refer to the complete medical record. Hospital course: 01/26/17- admit Agree with admission to [facility] unit for further psychiatric and treatment. Given patients aggressive suicide attempt with overdose recently. He is a level III under strict supervision. Did evaluate all medical screening performed in the emergency room. Will add a TSH for laboratory completeness, given that patient does have a history of hypothyroidism. Continue to encourage cautious use of Glidden for chronic back pain. Will also add heat packs to use as needed. Continue to monitor blood pressures. He was borderline elevated this morning, however, this may be secondary to his pain. Continue on lisinopril All psychiatric care as per Dr. Worthington Appreciate medical consultation. The hospitalist services will continue to follow patient medically manage existing comorbidities during his stay at [facility]. At time of discharge medical care will return to primary care provider Dr Jorge Bowser 01/27/17 18:21 Continue current care 01/28/17 18:25 Decrease Celexa to 20mg PO daily Increase Cymbalta to 60mg PO daily 01/29/17 Affact appears flat/depressed. He is off suicide watch Blood pressure is well controlled on Lisinopril continues on usual home medications including lipitor, plavix and levothyroxine Overall appears medically stable Psychiatric care as per Dr. Grullon 01/29/17 11:08 D/C Celexa. Increase Seroquel to 75mg at HS. Consider adding Ritalin 01/30/17 10:56 Continue current care 02/01/17 13:46 02/01/17 Overall, Booker is medically stable. He continues to have flat, depressed affect and struggles with energy. He denies any SI, but has morbid thoughts. Continue psychiatric care. Continue to provide safe and supportive environment. Blood pressure remains well controlled on Lisinopril. Continue to monitor. Continues on usual home medications including lipitor, plavix and levothyroxine. Continue to complains of chronic pain in knees and back and requests to have his Glidden dose increased to 10mg. Currently also on Ultram which he states helps. Will increase Glidden to 2 tabs po Q6H PRN pain for additional pain control. Recent labs on 01/31 showed new thrombocytopenia with platelets at 119 but otherwise unremarkable. Recheck labs on 02/07/17 to monitor blood counts, electrolytes and renal function. 02/02/17 20:14: Increase the dose of Buspar to 10mg TID. Cont supportive therapy 02/03/17 17:35 Continue current care 02/04/17 17:36 Continue current care 02/05/17 11:07 Continue current care 02/06/17 12:23 Continue current care 02/07/17 22:47 Cont medication. Family is working on placement. SW to arrange OP follow with a psychiatrist, therapist and home health 02/08/17 14:37 Tenderness over right medial scapular border -Discussed with nursing. They will try a heating pad, aspercreme. -Continue Tylenol, Glidden as needed -Chest x-ray done on 01/25/17 was unremarkable -EKG on 01/25/17 showed left bundle branch block with occasional PVC, and repeat on 01/31/17 again showed left bundle branch block. -Consider repeating labs, chest x-ray. If the patient develops fever, productive cough, or increased dyspnea. Labs were done on 02/07/17, including CBC and BMP. -Thrombocytopenia and normocytic anemia is gradually worsening. Will repeat CBC tomorrow morning. -in the meantime, continue Plavix -BMP is stable Psychiatric -Continue medication, family working on placement 02/08/17 21:08 Cont. current management. Possible discharge on if family finds placement 02/09/17 23:48 Cont current management . Possible discharge Tuesday or early next week. He will require psychiatric follow up prior to discharge 02/10/17 18:36 Continue current care. Awaiting placement 02/11/17 20:31 Continue current care 02/12/17 10:44 Continue current care 02/12/17 13:55 Overall, Booker is doing well and is medically stable. Exam is benign. No physical complaints on exam. Questions pertaining to having his toe nails trimmed by a equipment validation specialist prior to discharge on 02/14 were discussed and he is encouraged to follow up as outpatient. Anticipate discharge on 02/14. MDD -Continue care per psychiatric team. -Provides safe and supportive environment. Tenderness over right medial scapular border, resolved. -Discussed with nursing. They will try a heating pad, aspercreme. -Continue Tylenol, Glidden as needed -EKG on 01/25/17 showed left bundle branch block with occasional PVC, and repeat on 01/31/17 again showed left bundle branch block. Thrombocytopenia and normocytic anemia, resolved -CBC repeated on 02/09 showed resolved thrombocytopenia and anemia. Recommend repeat labs and follow up as outpatient. -Continue Plavix. 02/13/17 12:29 Plan D/C for tomorrow Discharge Plan - Med Rec/Dispo Referrals/Follow Up: [facility] [Provider Group] (Dr. Dara Cruz on 02/14/17 at 12:30 pm for Mental Health follow-up. . [facility] [address] [place] [address] Please bring your insurance cards and photo I.D. ) Jorge Bowser MD [Family Provider] - (Dr. Marky Bowser on 02/25/17 at 8:30 am for Hosp. follow-up. [facility] [address] [facility] [address] [id number]) Luis Instructions: Depression (GEN), Suicide Prevention for Adults (GEN) Additional Instructions: Reasons for Admission: Post suicide attempt by overdose. Discharge Diagnosis: Major Depressive Disorder, Recurrent Severe IN CASE OF PSYCHIATRIC EMERGENCY, CONTACT GENER[facility] STAFF AT [phone] ( available 24 hrs daily). Prescriptions: New Buspirone [Buspar] 10 mg PO TID #90 tablet Duloxetine [Cymbalta] 60 mg PO DAILY #30 capsule Quetiapine [Seroquel] 75 mg PO HS #45 tablet Acetaminophen [Tylenol] 325 - 650 mg PO Q5H PRN tablet PRN Reason: Discomfort Multi-Vitamin Plain [Theragran] 1 tab PO DAILY tablet Polyvinyl Alcohol/Povidone O/S [Refresh Classic] 1 drop EACH EYE PRN PRN amp PRN Reason: dry eyes Hydrocodone/APAP 5/325 [Glidden 5/325] 1 - 2 tab PO Q6H PRN #15 tablet PRN Reason: Pain Continue Levothyroxine Sodium 125 mcg PO DAILY Lisinopril [Zestril] 20 mg PO DAILY Clopidogrel Bisulfate [Clopidogrel] 75 mg PO DAILY Pantoprazole Tab [Protonix Tab] 1 tab PO ACB Discontinued Hydrocodone/APAP 5/325 [Glidden 5/325] 1 tab PO TID PRN PRN Reason: Pain Hydrocodone/APAP 10/325 [Glidden 10/325] 1 tab PO TID PRN PRN Reason: Pain Citalopram [Celexa] 40 mg PO DAILY Duloxetine [Cymbalta] 30 mg PO DAILY Eszopiclone [Lunesta] 3 mg PO HS Methylphenidate HCl [Ritalin] 1 tab PO TID Trazodone [Desyrel] 75 mg PO HS No Action Atorvastatin [Lipitor] 20 mg PO HS Discharge Instructions/Outpatient Orders: Final Provider Discharge Instructions Location: Determined By Patient - Disposition 01 Discharged Home, Self-Care
== END 2017-02-14 11:35 | disposition home or self-care (01) | DRG 885 ==
LOC: ED 11:53 → GEN 14:53
PROVIDERS: ADMIT Psychiatry & Neurology Psychiatry; ATTEND Psychiatry & Neurology Psychiatry